=== PATIENT | male | born 1955 | race African-American/Black ===

== ENCOUNTER 2023-05-07 12:16 | Inpatient (IN) ==
[2023-05-07 15:25] LABS: ALANINE AMINOTRANSFERASE 26 Units/L (12-78); ALBUMIN 1.8 g/dL (3.4-5.0); ALKALINE PHOSPHATASE 140 Units/L (46-116); AMYLASE 52 Units/L (25-115); ASPARTATE AMINO TRANSFERASE 59 Units/L (15-37); BLOOD UREA NITROGEN 3 mg/dL (7-18); CALCIUM 6.8 mg/dL (8.5-10.1); CARBON DIOXIDE 26.4 mmol/L (21-32); CHLORIDE 107 mmol/L (98-107); COR CA(FOR HYPOALB) 8.6 mg/dL (8.5-10.1); COR NA(FOR HYPERGLY) 143 mmol/L (136-145); CREATINE KINASE 46 Units/L (39-308); CREATININE 0.65 mg/dL (0.70-1.30); GLUCOSE 136 mg/dL (65-99); LIPASE 12 Units/L (73-393); SODIUM 142 mmol/L (136-145); TOTAL PROTEIN 4.9 g/dL (6.4-8.2); eGFR NON BLACK RACES > 60 (>60)
[2023-05-07 15:26] LABS: BASOPHILS % (AUTO) 0.4 % (0.2-1.0); EOSINOPHILS % (AUTO) 0.4 % (0.9-2.9); HEMOGLOBIN 9.7 g/dL (13.5-18.0); LYMPHOCYTES # (AUTO) 2.4 X10^3/uL (1.3-2.9); MEAN CORPUSCULAR HEMOGLOBIN 32.3 pg (27.0-34.0); MEAN CORPUSCULAR HGB CONC 34.6 g/dL (33.0-35.0); MEAN CORPUSCULAR VOLUME 93.4 fL (80.0-100.0); MEAN PLATELET VOLUME 9.8 fL (7.4-11.0); MONOCYTES # (AUTO) 0.4 x10^3/uL (0.3-0.8); MONOCYTES % (AUTO) 6.7 % (0.0-13.0); NEUTROPHILS # (AUTO) 3.8 x10^3/uL (2.2-4.8); NEUTROPHILS % (AUTO) 56.5 % (42.0-75.0); PLATELET COUNT 121 X10^3/uL (150.0-450.0); RED CELL DISTRIBUTION WIDTH 12.2 % (11.6-16.5); WHITE BLOOD COUNT 6.7 X10^3/uL (3.6-10.0)
[2023-05-07 15:33] LABS: POTASSIUM 2.8 mmol/L (3.5-5.1)
[2023-05-07] MEDS: PEPCID 20 MG VIAL 20 MG in NS 50 ML IV 50 ML IV SCH ×2 (15:40→20:23)
[2023-05-07] MEDS: PROTONIX INJ 40 MG VIAL IVP SCH ×2 (15:40→20:24)
[2023-05-07] MEDS ORDERED: CONSULT PHARMACY - POTASSIUM & MAGNESIUM XX SCH (17:00)
[2023-05-07] MEDS: K-DUR TAB 20 MEQ PO SCH ×3 (18:19→21:44)
[2023-05-07] MEDS: MAG-OX TAB PO SCH ×3 (18:20→21:45)
[2023-05-07 18:26] LABS: BILIRUBIN,URINE NEGATIVE (NEGATIVE); BLOOD/HEMOGLOBIN,URINE NEGATIVE (NEGATIVE); GLUCOSE, URINE NEGATIVE (NEGATIVE); KETONES,URINE NEGATIVE (NEGATIVE); LEUKOCYTE ESTERASE ,URINE NEGATIVE (NEGATIVE); NITRITES,URINE NEGATIVE (NEGATIVE); PROTEIN,URINE NEGATIVE (NEGATIVE); UROBILINOGEN,URINE NORMAL (NORMAL)
[2023-05-07 18:28] LABS: APPEARANCE,URINE CLEAR (CLEAR); COLOR,URINE DARK YELLOW (YELLOW)
[2023-05-07] MEDS: MORPHINE SULFATE INJ 2 MG INJ IVP PRN (20:27)
--- NOTE | 2023-05-07 23:17 | RAD ---
HISTORYSOBSTUDYCHEST, 1 VIEWCOMPARISONOctober 2020TECHNIQUEChest radiographic imaging, AP portable projection, 1 imageFINDINGSNo cardiomegaly.2 cm nodule in the left upper lobe.No focal infiltrate.No pleural effusion.No pneumothorax.No acute osseous abnormality.IMPRESSION2 cm nodule in the left upper lobe. Recommend a chest CT for further characterization.Electronically signed by: Jorge A Avalos (May 07, 2023 23:15:49)
[2023-05-08] MEDS: MORPHINE SULFATE INJ 2 MG INJ IVP PRN ×3 (03:16→19:41)
[2023-05-08 06:27] LABS: BASOPHILS % (AUTO) 0.3 % (0.2-1.0); EOSINOPHILS % (AUTO) 0.5 % (0.9-2.9); HEMATOCRIT 26.7 % (42.0-54.0); HEMOGLOBIN 9.1 g/dL (13.5-18.0); LYMPHOCYTES # (AUTO) 2.4 X10^3/uL (1.3-2.9); LYMPHOCYTES % (AUTO) 31.6 % (21.0-51.0); MEAN CORPUSCULAR HGB CONC 34.1 g/dL (33.0-35.0); MEAN CORPUSCULAR VOLUME 93.9 fL (80.0-100.0); MEAN PLATELET VOLUME 10.1 fL (7.4-11.0); MONOCYTES # (AUTO) 0.6 x10^3/uL (0.3-0.8); MONOCYTES % (AUTO) 8.3 % (0.0-13.0); NEUTROPHILS # (AUTO) 4.5 x10^3/uL (2.2-4.8); NEUTROPHILS % (AUTO) 59.3 % (42.0-75.0); PLATELET COUNT 120 X10^3/uL (150.0-450.0); RED BLOOD COUNT 2.85 X10^6/uL (4.7-6.0); RED CELL DISTRIBUTION WIDTH 12.4 % (11.6-16.5); WHITE BLOOD COUNT 7.6 X10^3/uL (3.6-10.0)
[2023-05-08 06:28] LABS: ALANINE AMINOTRANSFERASE 25 Units/L (12-78); ALBUMIN 1.5 g/dL (3.4-5.0); ALKALINE PHOSPHATASE 127 Units/L (46-116); ASPARTATE AMINO TRANSFERASE 70 Units/L (15-37); BLOOD UREA NITROGEN 3 mg/dL (7-18); CALCIUM 6.8 mg/dL (8.5-10.1); CARBON DIOXIDE 25.6 mmol/L (21-32); CHLORIDE 108 mmol/L (98-107); COR CA(FOR HYPOALB) 8.8 mg/dL (8.5-10.1); COR NA(FOR HYPERGLY) 142 mmol/L (136-145); CREATININE 0.66 mg/dL (0.70-1.30); GLUCOSE 124 mg/dL (65-99); MAGNESIUM 1.4 mg/dL (2.0-2.9); POTASSIUM 3.7 mmol/L (3.5-5.1); SODIUM 141 mmol/L (136-145); TOTAL PROTEIN 4.4 g/dL (6.4-8.2); eGFR NON BLACK RACES > 60 (>60)
[2023-05-08] MEDS ORDERED: CONSULT PHARMACY - POTASSIUM & MAGNESIUM XX SCH (07:00)
[2023-05-08] MEDS: PEPCID 20 MG VIAL 20 MG in NS 50 ML IV 50 ML IV SCH ×2 (08:48→21:17)
[2023-05-08] MEDS: PROTONIX INJ 40 MG VIAL IVP SCH ×2 (08:48→21:16)
[2023-05-08] MEDS: ALBUMIN HUMAN 25%- 100 ML 100 ML IV SCH (09:00)
[2023-05-08 09:24] VITALS: BMI 15.8
[2023-05-08] MEDS ORDERED: NS 250 ML IV 250 ML IV ONE (09:29)
[2023-05-08] MEDS ORDERED: K-DUR TAB 20 MEQ PO SCH (10:00)
[2023-05-08] MEDS: MAG-OX TAB PO SCH ×4 (10:58→13:35)
--- NOTE | 2023-05-08 11:55 | DR.H&P ---
H&P - History & Physical for Day of: H&P Date: 05/07/23 - Chief Complaint Chief Complaint: ABDOMINAL PAIN, BLOATING, NAUSEA AND VOMITING, WEIGHT LOSS, SOB. - History of Present Illness History of Present Illness: PRESENTED TO THE OFFICE ON 05/07 WITH COMPLAINTS OF INTERMITTENT ABDOMINAL PAIN, BLOATING, OCCASIONAL NAUSEA AND VOMITING, WEIGHT LOSS, SOB. HE ADMITS TO LOSING ABOUT 30-40 POUNDS IN THE PAST SEVERAL MONTHS. PATIENT REPORTS THAT PAIN IS WORSE AFTER EATING AND THAT HE OFTEN FEELS FULL QUICKLY. SYMPTOMS HAVE BEEN ONGOING FOR SEVERAL MONTHS. HE DESCRIBES ABDOMINAL PAIN DIFFUSE AND CRAMPING. HE RATED PAIN A 5/10 ON A RRIVAL. PAIN IS GENERALLY WORSE IN THE EPIGASTRIUM. HE ADMITS TO NORMAL BOWEL HABITS. HIS PMH INCLUDES GERD, ESOPHAGEAL STRICTURE, CHRONIC PANCREATITIS, OSTEOARTHRITIS, BPH, HYPERLIPIDEMIA, HIP REPLACEMENT, SARAH IN LEFT LEG. HE IS A DAILY DRINKER OF WINE. HE HAS BEEN SEEN BY , GENERAL SURGEON, SEVERAL TIMES SINCE DECEMBER 2022. HE HAD AN EGD AND COLONOSCOPY ON 01/18/23. THE UPPER ENDOSCOPY SHOWED STRICTURE OF THE LOWER ESOPHAGUS SECONDARY TO CHRONIC REFLUX ESOPHAGITIS. MODERATE DUODENITIS. THE COLONOSCOPY SHOWED MILD TO MODERATE DIVERTICULOSIS. OTHERWISE NORMAL EXAM ALL THE WAY TO THE CECUM. HIS ESOPHAGUS WAS STRETCHED AT THAT TIME. BIPOSIES WERE NEGATIVE FOR INTESTINAL METAPLASIA, DYSPLASIA, MALIGNANCY, H.PYLORI, OR PARASITES. HE WAS STARTED ON PROTONIX AND CARAFATE AND DID HAVE SOME IMPROVEMENT IN SYMPTOMS UNTIL AROUND A MONTH AGO. AN ABDOMEN/PELVIS CT WITH CONTRAST WAS OBTAINED ON 04/25 AND REVEALED: Circumferential thickening of the rectum and distal colon is suspicious for acut e proctocolitis. No discrete lesions identified; however, colonoscopy can be performed further evaluation as clinically warranted. Chronic pancreatitis with mild common bile duct and moderate pancreatic ductal dilatation, findings likely represents scarring and/or stricturing of the distal common bile and pancreatic ducts. Recommend. correlation cholestatic function test is recommended. OUTPATIENT CEA LEVEL WAS CHECKED AND WAS NOTED TO BE 11.8. DECISION WAS MADE TO ADMIT PATIENT TO THE HOSPITAL FOR FURTHER EVALUATION AND TREATMENT OF ABDOMINAL PAIN, CHRONIC PANCREATITIS, WEIGHT LOSS, SHORTNESS OF BREATH, DEHYDRATION, ELEVATED CEA LEVEL. ON ADMISSION, HIS VITALS WERE: 97.8-89-20-97%-119/80. LABS WERE OBTAINED. WBC 6.7, RBC 3.00, HGB 9.7, HCT 28.0, SODIUM 142, POTASSIUM 2.8, CHLORIDE 107, CARBON DIOXIDE 26.4, BUN 3, CREATININE 0.65, GLUCOSE 136, CALCIUM 6.8, MAGNESIUM 1.4, AST 59, ALT 26, ALK PHOS 140, CREATINE KINASE 46, TROPONIN 10.0, TOTAL PROTEIN 4.9, ALBUMIN 1.8, AMYLASE 52, LIPASE 12. A URINALYSIS WAS OBTAINED AND WAS UNREMARKABLE, HOWEVER, A CULTURE WAS SET UP. A CHEST XRAY WAS OBTAINED AND REVEALED A 2CM NODULE IN THE LEFT UPPER LOBE. A CT OF THE CHEST WITH CONTRAST WAS RECOMMENDED. HE WAS STARTED ON PERIPHERAL TPN, ALBUMIN 25% IV DAILY, PROTONIX 40MG IV BID, FAMOTIDINE 20MG IV Q12H, ZOFRAN 4MG IV Q4H PRN. WE WILL REPLEAT HIS POTASSIUM AND MAGNESIUM. WE WILL RESUME HIS HOME MEDICATIONS OF TAMSULOSIN, FOLIC ACID, PERCOCET, AND ATORVASTATIN. WE WILL OBTAIN A GALLBLADDER ULTRASOUND AND A CHEST CT WITH CONTRAST. WE WILL GO AHEAD AND CONSULT WITH , GENERAL SURGEON. OTHERWISE, WE WILL FOLLOW UP WITH AM LABS AND CONTINUE TO MONITOR. TIME SPENT ON CLINICAL ASSESSMENT, REVIEWING - Past Medical History Past Medical History: Anemia, Dyslipidemia, GERD Additional Medical History: BPH, CHRONIC PANCREATITIS, ESOPHAGEAL STRICTURE, ALCOHOL DEPENDENCE - Past Surgical History Surgical History: Ortho Surgery Additional Surgical History: HIP REPLACEMENT, SARAH IN LEFT LEG - Family History Family Medical History: Diabetes Mellitus, Hypertension - Social History Does patient currently use any type of tobacco product: Yes Have you used tobacco products in the last 12 months: Yes Type of Tobacco Use: Cigarettes How many years tobacco product used: 40 Alcohol Use: DAILY Drug Use: None - Review of Systems Constitutional: Weakness, Other (WEIGHT LOSS ) Eyes: No Symptoms Reported ENT: No Symptoms Reported Respiratory: Shortness of Breath. denies: Cough Cardiovascular: No Symptoms Reported Gastrointestinal: See HPI, Nausea, Vomiting, Abdominal Pain. denies: Diarrhea, Constipation, Melena Genitourinary: No Symptoms Reported Musculoskeletal: No Symptoms Reported Skin: No Symptoms Reported Neurological: Weakness - Physical Exam Vital Signs: Vital Signs Temperature 98.2 F Temperature 97.9 F Pulse Rate [Bilateral Radial] 74 Pulse Rate [Bilateral Radial] 67 Respiratory Rate 20 Respiratory Rate 18 Respiratory Rate 20 Blood Pressure [Left Arm] 142/90 Blood Pressure [Left Arm] 151/80 O2 Sat by Pulse Oximetry 96 O2 Sat by Pulse Oximetry 100 Oriented: Normal Eyes: Normal Ear: Normal Nose: Normal Throat: Normal Respiratory: Diminished Throughout Cardiovascular: Normal : Normal Auscultation: Bowel Sounds: Normal Palpation: Normal Tenderness: Diffuse, Epigastric, Mild Skin: Decreased Turgur Musculoskeletal: Normal Psychiatric: Normal Mood Description: Calm Affect: Normal Speech Pattern: Clear - Assessment/Plan (1) Chronic pancreatitis Qualifiers: Pancreatitis type: alcohol induced Qualified Code(s): K86.0 - Alcohol- induced chronic pancreatitis Status: Acute Plan: ADMIT, CONSULT GENERAL SURGERY, OBTAIN GALLBLADDER US, START PERIPHERAL TPN, ALBUMIN 25% IV DAILY, PROTONIX 40MG IV BID, FAMOTIDINE 20MG IV Q12H, ZOFRAN 4MG IV Q4H PRN, MORPHINE 2MG IV Q4H PRN. RESUME HOME MEDS (2) Abdominal pain Qualifiers: Abdominal location: generalized Qualified Code(s): R10.84 - Generalized abdominal pain Status: Acute (3) Dehydration Status: Acute Plan: REPLEAT ELECTROLYTES (4) Protein calorie malnutrition Qualifiers: Protein-calorie malnutrition severity: moderate Qualified Code(s): E44.0 - Moderate protein-calorie malnutrition Status: Acute Plan: PERIPHERAL TPN, DIETARY CONSULT (5) Hypoalbuminemia Status: Acute Plan: ALBUMIN 25% IV DAILY (6) Elevated CEA Status: Acute (7) Weight loss Status: Acute (8) Lung nodule seen on imaging study Status: Acute Plan: OBTAIN CHEST CT WITH CONTRAST (9) Gastroesophageal reflux disease Qualifiers: Esophagitis presence: with esophagitis Status: Chronic Plan: CONTINUE PEPCID AND PROTONIX (10) BPH (benign prostatic hyperplasia) Qualifiers: Lower urinary tract symptom presence: symptoms absent Qualified Code(s): N40.0 - Benign prostatic hyperplasia without lower urinary tract symptoms Status: Chronic Plan: CONTINUE TAMSULOSIN (11) Hyperlipidemia Qualifiers: Hyperlipidemia type: mixed hyperlipidemia Qualified Code(s): E78.2 - Mixed hyperlipidemia Status: Chronic Plan: CONTINUE ATORVASTATIN - Allergies Allergies/Adverse Reactions: Allergies Allergy/AdvReac Type Severity Reaction Status Date / Time Penicillins Allergy Verified 01/24/23 11:17 - Medications Home Medications: Home Medications Medication Instructions Recorded Confirmed atorvastatin 40 mg tablet 40 mg PO QDAY 01/08/23 05/07/23 folic acid 1 mg tablet 1 mg PO QDAY 01/08/23 05/07/23 oxycodone-acetaminophen 7.5 mg-325 1 tab PO QID PRN 01/08/23 05/07/23 mg tablet tamsulosin 0.4 mg capsule 0.4 mg PO QHS 01/08/23 05/07/23 tamsulosin 0.4 mg capsule 0.4 mg PO QHS 05/07/23 05/07/23 Previous Rx's Medication Instructions Recorded pantoprazole 40 mg tablet,delayed 40 mg PO BID #60 tabs 04/11/23 release (Protonix)
[2023-05-08] MEDS ORDERED: PHARMACY CONSULT - TPN XX SCH (12:00)
[2023-05-08] MEDS ORDERED: OMNIPAQUE 350 mg/mL 100 mL BTL 100 ML ONE (12:14)
[2023-05-08] MEDS ORDERED: CLINIMIX IV SCH ×3 (13:00)
[2023-05-08] MEDS ORDERED: MVI IV SCH ×3 (13:00)
[2023-05-08] MEDS ORDERED: TPN ELECTROLYTES IV SCH ×3 (13:00)
[2023-05-08] MEDS: LIPITOR TAB 40 MG PO SCH (13:33)
[2023-05-08] MEDS: FOLIC ACID TAB 1 MG PO SCH (13:34)
--- NOTE | 2023-05-08 15:27 | CT ---
HISTORYLUNG NODULE, R/O MALIGNANCYSTUDYCHEST WITH CONCOMPARISONTECHNIQUEMultiple axial images of the chest were obtained from the thoracic inlet to the upper abdomen after the administration of IV contrast. Dose reduction techniques including Automated Exposure Control (AEC) and adjustment of mA and kV were utilized.FINDINGSThe left ventricle is dilated relative to the right. The main pulmonary artery measures 2.6 cm in diameter. There is no pulmonary embolus. There is ectasia of the ascending aorta up to 3.4 cm in diameter. There is no dissection. There is no pathologic adenopathy. The airways are clear. There is mild upper lobe emphysema. There is some minimal scarring in the right upper. There is a spiculated mass with some cavitation left which measures 2.3 cm by 2.1 cm. Although infection is possible the appearance is quite worrisome for malignancy. There is a trace pleural effusion. There is diffuse fatty infiltration of the liver. There are diffuse calcifications in the pancreas. There is a nonspecific lesion in the right 9th rib, probably benign.IMPRESSION1. Left upper lobe lesion suggestive of malignancy.2. Mild upper lobe emphysema.3. Trace left effusion.4. Fatty liver.5. Chronic pancreatitis.Electronically signed by: Benji James (May 08, 2023 15:26:01)
--- NOTE | 2023-05-08 16:04 | US ---
HISTORYABD PAINSTUDYGALL BLADDERCOMPARISONNone availableTECHNIQUEMultiple espitia scale, duplex and color flow Doppler images of the right upper quadrant were obtained.FINDINGSThe imaged liver appears diffusely increased in echogenicity, most compatible with steatosis. No focal hepatic lesions are visualized. Main portal vein is patent.The nondistended gallbladder is unremarkable without cholelithiasis, wall thickening/edema or pericholecystic fluid. Common bile duct is normal in caliber, measuring 1 mm.The right kidney measures 9.2 cm in length and appears normal in echogenicity without visualized focal mass or hydronephrosis.The pancreas was not well visualized due to overlying bowel gas.IMPRESSIONNonvisualization of the pancreas due to overlying bowel gas.Hepatic steatosis.Remainder of the exam is unremarkable, as visualized.Electronically signed by: MARGOTH DUTTON (May 08, 2023 16:02:49)
[2023-05-08 16:13] VITALS: O2SAT 100
[2023-05-08] MEDS: FLOMAX PO SCH (21:16)
[2023-05-08] MEDS: PERCOCET TAB 5/325 MG PO PRN (21:20)
[2023-05-09] MEDS: MORPHINE SULFATE INJ 2 MG INJ IVP PRN ×3 (00:18→17:16)
[2023-05-09 06:10] LABS: BASOPHILS % (AUTO) 0.4 % (0.2-1.0); EOSINOPHILS # (AUTO) 0.1 x10^3/uL (0.0-0.2); EOSINOPHILS % (AUTO) 1.1 % (0.9-2.9); HEMATOCRIT 25.6 % (42.0-54.0); HEMOGLOBIN 8.8 g/dL (13.5-18.0); LYMPHOCYTES # (AUTO) 2.5 X10^3/uL (1.3-2.9); LYMPHOCYTES % (AUTO) 34.9 % (21.0-51.0); MEAN CORPUSCULAR HGB CONC 34.2 g/dL (33.0-35.0); MEAN CORPUSCULAR VOLUME 93.7 fL (80.0-100.0); MEAN PLATELET VOLUME 10.4 fL (7.4-11.0); MONOCYTES # (AUTO) 0.6 x10^3/uL (0.3-0.8); NEUTROPHILS # (AUTO) 3.9 x10^3/uL (2.2-4.8); NEUTROPHILS % (AUTO) 54.6 % (42.0-75.0); PLATELET COUNT 105 X10^3/uL (150.0-450.0); RED BLOOD COUNT 2.74 X10^6/uL (4.7-6.0); RED CELL DISTRIBUTION WIDTH 12.4 % (11.6-16.5); WHITE BLOOD COUNT 7.1 X10^3/uL (3.6-10.0)
[2023-05-09 06:26] LABS: ALANINE AMINOTRANSFERASE 20 Units/L (12-78); ALKALINE PHOSPHATASE 116 Units/L (46-116); ASPARTATE AMINO TRANSFERASE 49 Units/L (15-37); BLOOD UREA NITROGEN 3 mg/dL (7-18); CARBON DIOXIDE 28.8 mmol/L (21-32); CHLORIDE 104 mmol/L (98-107); COR CA(FOR HYPOALB) 8.6 mg/dL (8.5-10.1); COR NA(FOR HYPERGLY) 140 mmol/L (136-145); CREATININE 0.61 mg/dL (0.70-1.30); GLUCOSE 182 mg/dL (65-99); MAGNESIUM 1.5 mg/dL (2.0-2.9); POTASSIUM 3.6 mmol/L (3.5-5.1); SODIUM 138 mmol/L (136-145); TOTAL PROTEIN 4.6 g/dL (6.4-8.2); eGFR NON BLACK RACES > 60 (>60)
[2023-05-09] MEDS ORDERED: CONSULT PHARMACY - POTASSIUM & MAGNESIUM XX SCH ×2 (07:00→08:00)
[2023-05-09] MEDS: PEPCID 20 MG VIAL 20 MG in NS 50 ML IV 50 ML IV SCH ×2 (08:22→21:07)
[2023-05-09] MEDS: ALBUMIN HUMAN 25%- 100 ML 100 ML IV SCH (08:22)
[2023-05-09] MEDS: MAG-OX TAB PO SCH ×2 (08:23→09:34)
[2023-05-09] MEDS: LIPITOR TAB 40 MG PO SCH (08:23)
[2023-05-09] MEDS: FOLIC ACID TAB 1 MG PO SCH (08:23)
[2023-05-09] MEDS: PROTONIX INJ 40 MG VIAL IVP SCH ×2 (08:23→21:07)
[2023-05-09] MEDS: PERCOCET TAB 5/325 MG PO PRN ×2 (08:24→21:08)
[2023-05-09] MEDS ORDERED: K-DUR TAB 20 MEQ PO SCH (09:00)
--- NOTE | 2023-05-09 13:36 | PCM.PROG ---
Progress Note - Progress Note for Day of Date of Exam: 05/09/23 - Subjective Subjective: IS CURRENTLY OBSERVATION STATUS FOR TREATMENT OF FAILURE TO THRIVE, CHRONIC PANCREATITIS, ABDOMINAL PAIN, DEHYDRATION, HYPOALBUMINEMIA, HYPOMAGNESEMIA, ELEVATED CEA, WEIGHT LOSS, LEFT LUNG LESION. HE HAS A PMH OF GERD, ESOPHAGEAL STRICTURE, CHRONIC PANCREATITIS, OSTEOARTHRITIS, BPH, HYPERLIPIDEMIA, HIP REPLACEMENT, SARAH IN LEFT LEG. TODAY, HE IS ALERT AND ORIENTED, LYING IN BED ON MORNING ROUNDS. PATIENT IS VERY THIN. HE COMPLAINS OF PERSISTENT ABDOMINAL PAIN, NAUSEA, WEAKNESS, AND OCCASIONAL SHORTNESS OF BREATH. HE REPORTS ONLY SLIGHT IMPROVEMENT IN SYMPTOMS SINCE ADMISSION. ON EXAMINATION, HEART IS REGULAR IN RATE AND RHYTHM. BILATERAL LUNGS ARE NOTED WITH DIMINISHED LUNG SOUNDS THROUGHOUT. ABDOMEN IS FLAT, SOFT, AND NON-TENDER WITH NORMAL BOWEL SOUNDS NOTED IN ALL QUADRANTS. WEAKNESS NOTED TO LOWER EXTREMITIES. HIS VITALS THIS MORNING ARE: 97.0-72-18-100%-154/78. LABS WERE OBTAINED. WBC 7.1, RBC 2.74, HGB 8.8, HCT 25.6, PLT COUNT 105, SODIUM 138, POTASSIUM 3.6, CHLORIDE 104, BUN 3, CREATININE 0.61, GLUCOSE 182, CALCIUM 7.0, MAGNESIUM 1.5, TOTAL BILI 1.10, AST 49, ALT 20, ALK PHOS 116, TOTAL PROTEIN 4.6, ALBUMIN 2.0. URINE CULTURE IS PENDING. WE OBTAINED A CHEST CT WITH CONTRAST YESTERDAY. IT REVEALED: 1. Left upper lobe lesion suggestive of malignancy. 2. Mild upper lobe emphysema. 3. Trace left effusion. 4. Fatty liver. 5. Chronic pancreatitis. A GALLBLADDER US WAS ALSO OBTAINED YESTERDAY AND REVEALED: Nonvisualization of the pancreas due to overlying bowel gas. Hepatic steatosis. Remainder of the exam is unremarkable, as visualized. SAW HIM YESTERDAY AND RECOMMENDS T OCONTINUE WITH CURRENT PLAN OF CARE. HE IS CURRENTLY RECEIVING PERIPHERAL TPN, ALBUMIN 25% IV DAILY, PROTONIX 40MG IV BID, FAMOTIDINE 20MG IV Q12H, ZOFRAN 4MG IV Q4H PRN. WE WILL REPLEAT HIS POTASSIUM AND MAGNESIUM. WE WILL RESUME HIS HOME MEDICATIONS OF TAMSULOSIN, FOLIC ACID, PERCOCET, AND ATORVASTATIN. WE WILL CHANGE HIM TO INPATIENT STATUS TODAY AND CONTINUE WITH CURRENT PLAN OF CARE. WE DISCUSSED THE RESULTS OF HIS CHEST CT WITH HIM AND INSTRUCTED HIM THAT HE WILL NEED AN ONCOLOGY REFERRAL FOLLOWING DISCHARGE. HE VERBALIZED UNDERSTATNDING. WE WILL FOLLOW UP WITH AM LABS AND CONTINUE TO MONITOR. TIME SPENT ON CLINICAL ASSESSMENT, REVIEWING LABS AND IMAGING, DECISION MAKING, AND DOCUMENTATION GREATER THAN 45 MINUTES. - Past Medical Family Social History Past Med/Fam/Surg Hx: No changes since H&P Allergies: Allergies Penicillins Allergy (Verified 01/24/23 11:17) - Review of Systems ROS: No change since H&P - Vital Signs and I&O's Vital Signs: Vital Signs Temperature 97.6 F Temperature 97.0 F Pulse Rate [Bilateral Radial] 55 Pulse Rate [Bilateral Radial] 72 Respiratory Rate 18 Respiratory Rate 22 Respiratory Rate 22 Respiratory Rate 18 Blood Pressure [Right Arm] 140/82 Blood Pressure [Right Arm] 154/78 O2 Sat by Pulse Oximetry 100 O2 Sat by Pulse Oximetry 100 Intake and Output: Intake & Output 05/07/23 05/08/23 05/09/23 05/10/23 11:59 11:59 11:59 11:59 Intake Total 310 / 310 2837 / 2837 Output Total 1820 / 1820 Balance 310 / 310 1017 / 1017 - Physical Exam Oriented: Normal Eyes: Normal Ear: Normal Nose: Normal Throat: Normal Respiratory: Diminished Cardiovascular: Normal : Normal Auscultation: Bowel Sounds: Normal Palpation: Normal Tenderness: Normal Skin: Decreased Turgur Musculoskeletal: Normal Psychiatric: Normal Mood Description: Calm Affect: Normal Speech Pattern: Clear, Appropriate - Laboratory and Diagnostics Result Diagrams: 05/09/23 05:22 05/09/23 05:22 Labs: 05/07/23 18:14 Urine,Clean Catch Urine Culture - Final Laboratory WBC 7.1 X10^3/uL (3.6-10.0) 05/09/23 05:22 RBC 2.74 X10^6/uL (4.7-6.0) L 05/09/23 05:22 Hgb 8.8 g/dL (13.5-18.0) L 05/09/23 05:22 Hct 25.6 % (42.0-54.0) L 05/09/23 05:22 MCV 93.7 fL (80.0-100.0) 05/09/23 05:22 MCH 32.0 pg (27.0-34.0) 05/09/23 05:22 MCHC 34.2 g/dL (33.0-35.0) 05/09/23 05:22 RDW 12.4 % (11.6-16.5) 05/09/23 05:22 Plt Count 105 X10^3/uL (150.0-450.0) L 05/09/23 05:22 MPV 10.4 fL (7.4-11.0) 05/09/23 05:22 Neut % (Auto) 54.6 % (42.0-75.0) 05/09/23 05:22 Lymph % (Auto) 34.9 % (21.0-51.0) 05/09/23 05:22 [place] % (Auto) 9.0 % (0.0-13.0) 05/09/23 05:22 Eos % (Auto) 1.1 % (0.9-2.9) 05/09/23 05:22 Baso % (Auto) 0.4 % (0.2-1.0) 05/09/23 05:22 Neut # (Auto) 3.9 x10^3/uL (2.2-4.8) 05/09/23 05:22 Lymph # (Auto) 2.5 X10^3/uL (1.3-2.9) 05/09/23 05:22 [place] # (Auto) 0.6 x10^3/uL (0.3-0.8) 05/09/23 05:22 Eos # (Auto) 0.1 x10^3/uL (0.0-0.2) 05/09/23 05:22 Baso # (Auto) 0.0 X10^3/uL (0.0-0.1) 05/09/23 05:22 Absolute Nucleated RBC 0.2 /100WBC 05/09/23 05:22 Sodium 138 mmol/L (136-145) 05/09/23 05:22 Corrected Sodium 140 mmol/L (136-145) 05/09/23 05:22 Potassium 3.6 mmol/L (3.5-5.1) 05/09/23 05:22 Chloride 104 mmol/L (98-107) 05/09/23 05:22 Carbon Dioxide 28.8 mmol/L (21-32) 05/09/23 05:22 BUN 3 mg/dL (7-18) L 05/09/23 05:22 Creatinine 0.61 mg/dL (0.70-1.30) L 05/09/23 05:22 Est GFR (MDRD) Af Amer > 60 (>60) 05/09/23 05:22 Est GFR (MDRD) Non-Af > 60 (>60) 05/09/23 05:22 Glucose 182 mg/dL (65-99) H 05/09/23 05:22 Calcium 7.0 mg/dL (8.5-10.1) L 05/09/23 05:22 Corrected Calcium 8.6 mg/dL (8.5-10.1) 05/09/23 05:22 Magnesium 1.5 mg/dL (2.0-2.9) L 05/09/23 05:22 Total Bilirubin 1.10 mg/dL (0.2-1.0) H 05/09/23 05:22 AST 49 Units/L (15-37) H 05/09/23 05:22 ALT 20 Units/L (12-78) 05/09/23 05:22 Alkaline Phosphatase 116 Units/L (46-116) 05/09/23 05:22 Creatine Kinase 46 Units/L (39-308) 05/07/23 14:55 Troponin I High Sens 10.0 ng/L (4.0-60.0) 05/07/23 14:55 Total Protein 4.6 g/dL (6.4-8.2) L 05/09/23 05:22 Albumin 2.0 g/dL (3.4-5.0) L 05/09/23 05:22 Globulin 2.6 g/dL (2.5-4.5) 05/09/23 05:22 Albumin/Globulin Ratio 0.8 Ratio (1.1-2.1) L 05/09/23 05:22 Amylase 52 Units/L (25-115) 05/07/23 14:55 Lipase 12 Units/L (73-393) L 05/07/23 14:55 Specimen Type Clean catch urine 05/07/23 18:14 Urine Color Dark yellow (YELLOW) 05/07/23 18:14 Urine Appearance Clear (CLEAR) 05/07/23 18:14 Urine pH 6.0 (5.0 - 8.0) 05/07/23 18:14 Ur Specific [place] 1.015 (1.000-1.030) 05/07/23 18:14 Urine Protein Negative (NEGATIVE) 05/07/23 18:14 Urine Glucose (UA) Negative (NEGATIVE) 05/07/23 18:14 Urine Ketones Negative (NEGATIVE) 05/07/23 18:14 Urine Blood Negative (NEGATIVE) 05/07/23 18:14 Urine Nitrite Negative (NEGATIVE) 05/07/23 18:14 Urine Bilirubin Negative (NEGATIVE) 05/07/23 18:14 Urine Urobilinogen Normal (NORMAL) 05/07/23 18:14 Ur Leukocyte Esterase Negative (NEGATIVE) 05/07/23 18:14 - Plan (1) Hypoalbuminemia Status: Acute Plan: PERIPHERAL TPN, ALBUMIN 25% IV DAILY, PROTONIX 40MG IV BID, FAMOTIDINE 20MG IV Q12H, ZOFRAN 4MG IV Q4H PRN, MORPHINE 2MG IV Q4H PRN. RESUME HOME MEDS (2) Hypomagnesemia Status: Acute (3) Failure to thrive Status: Acute Qualifiers: Failure to thrive age range: in adult Qualified Code(s): R62.7 - Adult failure to thrive (4) Elevated CEA Status: Acute (5) Weight loss Status: Acute (6) Chronic pancreatitis Status: Acute Qualifiers: Pancreatitis type: alcohol induced Qualified Code(s): K86.0 - Alcohol- induced chronic pancreatitis (7) Dehydration Status: Acute Plan: REPLEAT ELECTROLYTES (8) Lung nodule seen on imaging study Status: Acute (9) Gastroesophageal reflux disease Status: Chronic Qualifiers: Esophagitis presence: with esophagitis Plan: CONTINUE PEPCID AND PROTONIX (10) BPH (benign prostatic hyperplasia) Status: Chronic Qualifiers: Lower urinary tract symptom presence: symptoms absent Qualified Code(s): N40.0 - Benign prostatic hyperplasia without lower urinary tract symptoms Plan: CONTINUE TAMSULOSIN (11) Hyperlipidemia Status: Chronic Qualifiers: Hyperlipidemia type: mixed hyperlipidemia Qualified Code(s): E78.2 - Mixed hyperlipidemia Plan: CONTINUE ATORVASTATIN
[2023-05-09] MEDS: FLAGYL IV PREMIX 500 MG BAG 500 MG/100 ML BAG IV SCH (21:06)
[2023-05-09] MEDS: CIPRO IV 400 MG PREMIX* 400 MG/200 ML IV.SOLN. IV SCH (21:06)
[2023-05-09] MEDS: FLOMAX PO SCH (21:07)
[2023-05-10] MEDS: FLAGYL IV PREMIX 500 MG BAG 500 MG/100 ML BAG IV SCH ×4 (02:05→20:20)
[2023-05-10] MEDS: PERCOCET TAB 5/325 MG PO PRN ×2 (02:10→10:05)
[2023-05-10 06:08] LABS: BASOPHILS % (AUTO) 0.4 % (0.2-1.0); EOSINOPHILS # (AUTO) 0.1 x10^3/uL (0.0-0.2); HEMATOCRIT 27.6 % (42.0-54.0); HEMOGLOBIN 9.3 g/dL (13.5-18.0); LYMPHOCYTES # (AUTO) 2.5 X10^3/uL (1.3-2.9); LYMPHOCYTES % (AUTO) 35.3 % (21.0-51.0); MEAN CORPUSCULAR HEMOGLOBIN 31.8 pg (27.0-34.0); MEAN CORPUSCULAR HGB CONC 33.8 g/dL (33.0-35.0); MEAN CORPUSCULAR VOLUME 94.1 fL (80.0-100.0); MEAN PLATELET VOLUME 10.4 fL (7.4-11.0); MONOCYTES # (AUTO) 0.6 x10^3/uL (0.3-0.8); NEUTROPHILS % (AUTO) 55.3 % (42.0-75.0); PLATELET COUNT 110 X10^3/uL (150.0-450.0); RED BLOOD COUNT 2.93 X10^6/uL (4.7-6.0); RED CELL DISTRIBUTION WIDTH 12.6 % (11.6-16.5); WHITE BLOOD COUNT 7.2 X10^3/uL (3.6-10.0)
[2023-05-10 06:45] LABS: ALANINE AMINOTRANSFERASE 20 Units/L (12-78); ALBUMIN 2.5 g/dL (3.4-5.0); ALKALINE PHOSPHATASE 121 Units/L (46-116); ASPARTATE AMINO TRANSFERASE 42 Units/L (15-37); BLOOD UREA NITROGEN 3 mg/dL (7-18); CALCIUM 7.4 mg/dL (8.5-10.1); CARBON DIOXIDE 26.4 mmol/L (21-32); CHLORIDE 104 mmol/L (98-107); COR CA(FOR HYPOALB) 8.6 mg/dL (8.5-10.1); CREATININE 0.52 mg/dL (0.70-1.30); GLUCOSE 92 mg/dL (65-99); POTASSIUM 3.9 mmol/L (3.5-5.1); SODIUM 139 mmol/L (136-145); TOTAL PROTEIN 5.2 g/dL (6.4-8.2); eGFR NON BLACK RACES > 60 (>60)
[2023-05-10] MEDS ORDERED: CONSULT PHARMACY - POTASSIUM & MAGNESIUM XX SCH (08:00)
[2023-05-10] MEDS: CIPRO IV 400 MG PREMIX* 400 MG/200 ML IV.SOLN. IV SCH ×2 (08:57→20:20)
[2023-05-10] MEDS: PROTONIX INJ 40 MG VIAL IVP SCH ×2 (08:57→20:21)
[2023-05-10] MEDS: LIPITOR TAB 40 MG PO SCH (08:57)
[2023-05-10] MEDS: FOLIC ACID TAB 1 MG PO SCH (08:57)
[2023-05-10] MEDS: MAG-OX TAB PO SCH ×2 (08:58→11:02)
[2023-05-10] MEDS: TPN ELECTROLYTES IV SCH ×5 (09:01)
[2023-05-10] MEDS: CLINIMIX IV SCH ×5 (09:01)
[2023-05-10] MEDS: MVI IV SCH ×5 (09:01)
[2023-05-10] MEDS: [UNRECOGNIZED DRUG - OTHER] IV SCH ×5 (09:01)
[2023-05-10] MEDS: PEPCID 20 MG VIAL 20 MG in NS 50 ML IV 50 ML IV SCH ×2 (11:00→20:03)
[2023-05-10] MEDS: ALBUMIN HUMAN 25%- 100 ML 100 ML IV SCH (12:00)
--- NOTE | 2023-05-10 12:19 | PCM.PROG ---
Progress Note - Progress Note for Day of Date of Exam: 05/10/23 - Subjective Subjective: IS CURRENTLY INPATIENT STATUS FOR TREATMENT OF ACUTE PROCTOCOLITIS, FAILURE TO THRIVE, CHRONIC PANCREATITIS, ABDOMINAL PAIN, DEHYDRATION, HYPOALBUMINEMIA, HYPOMAGNESEMIA, ELEVATED CEA, WEIGHT LOSS, LEFT LUNG LESION. HE HAS A PMH OF GERD, ESOPHAGEAL STRICTURE, CHRONIC PANCREATITIS, OSTEOARTHRITIS, BPH, HYPERLIPIDEMIA, HIP REPLACEMENT, SARAH IN LEFT LEG. TODAY, HE IS ALERT AND ORIENTED, LYING IN BED ON MORNING ROUNDS. PATIENT IS VERY THIN. HE COMPLAINS OF OCCASIONAL ABDOMINAL CRAMPING, NAUSEA, WEAKNESS, AND OCCASIONAL SHORTNESS OF BREATH. HE DOES REPORT SLIGHT IMPROVEMENT IN SYMPTOMS SINCE ADMISSION. ON EXAMINATION, HEART IS REGULAR IN RATE AND RHYTHM. BILATERAL LUNGS ARE NOTED WITH DIMINISHED LUNG SOUNDS THROUGHOUT. ABDOMEN IS FLAT, SOFT, AND NON-TENDER WITH NORMAL BOWEL SOUNDS NOTED IN ALL QUADRANTS. WEAKNESS NOTED TO LOWER EXTREMITIES. HIS VITALS THIS MORNING ARE: 97.9-350-71-100%-124/82. LABS WERE OBTAINED. WBC 7.2, RBC 2.93, HGB 9.3, HCT 27.6, PLT COUNT 110, SODIUM 139, POTASSIUM 3.9, CHLORIDE 104, BUN 3, CREATININE 0.52, GLUCOSE 92, CALCIUM 7.4, MAGNEISUM 1.5, AST 42, ALT 20, ALK PHOS 121, TOTAL PROTEIN 5.2, ALBUMIN 2.5. URINE CULTURE IS PENDING. CONSULTED WITH HIM AND RECOMMENDS TO CONTINUE WITH CURRENT PLAN OF CARE. HE IS CURRENTLY RECEIVING PERIPHERAL TPN, CIPRO 400MG IV Q12H, FLAGYL 500MG IV Q6H, ALBUMIN 25% IV DAILY, PROTONIX 40MG IV BID, FAMOTIDINE 20MG IV Q12H, ZOFRAN 4MG IV Q4H PRN. WE WILL REPLEAT HIS POTASSIUM AND MAGNESIUM. WE WILL RESUME HIS HOME MEDICATIONS OF TAMSULOSIN, FOLIC ACID, PERCOCET, AND ATORVASTATIN. WE WILL CONTINUE WITH CURRENT PLAN OF CARE TODAY. WE WILL FOLLOW UP WITH AM LABS AND CONTINUE TO MONITOR. TIME SPENT O N CLINICAL ASSESSMENT, REVIEWING LABS AND IMAGING, DECISION MAKING, AND DOCUMENTATION GREATER THAN 45 MINUTES. - Past Medical Family Social History Past Med/Fam/Surg Hx: No changes since H&P Allergies: Allergies Penicillins Allergy (Verified 01/24/23 11:17) - Review of Systems ROS: No change since H&P - Vital Signs and I&O's Vital Signs: Vital Signs Temperature 97.4 F Pulse Rate [Bilateral Radial] 106 Respiratory Rate 18 Respiratory Rate 18 Respiratory Rate 18 Blood Pressure [Right Arm] 124/82 O2 Sat by Pulse Oximetry 100 Intake and Output: Intake & Output 05/08/23 05/09/23 05/10/23 05/11/23 11:59 11:59 11:59 11:59 Intake Total 310 / 310 2837 / 2837 2863 / 2863 Output Total 1820 / 1820 2700 / 2700 Balance 310 / 310 1017 / 1017 163 / 163 - Physical Exam Oriented: Normal Eyes: Normal Ear: Normal Nose: Normal Throat: Normal Respiratory: Diminished Cardiovascular: Normal : Normal Auscultation: Bowel Sounds: Normal Palpation: Normal Tenderness: Normal Skin: Decreased Turgur Musculoskeletal: Normal Psychiatric: Normal Mood Description: Calm Affect: Normal Speech Pattern: Clear, Appropriate - Laboratory and Diagnostics Result Diagrams: 05/10/23 05:45 05/10/23 05:45 Labs: 05/07/23 18:14 Urine,Clean Catch Urine Culture - Final Laboratory WBC 7.2 X10^3/uL (3.6-10.0) 05/10/23 05:45 RBC 2.93 X10^6/uL (4.7-6.0) L 05/10/23 05:45 Hgb 9.3 g/dL (13.5-18.0) L 05/10/23 05:45 Hct 27.6 % (42.0-54.0) L 05/10/23 05:45 MCV 94.1 fL (80.0-100.0) 05/10/23 05:45 MCH 31.8 pg (27.0-34.0) 05/10/23 05:45 MCHC 33.8 g/dL (33.0-35.0) 05/10/23 05:45 RDW 12.6 % (11.6-16.5) 05/10/23 05:45 Plt Count 110 X10^3/uL (150.0-450.0) L 05/10/23 05:45 MPV 10.4 fL (7.4-11.0) 05/10/23 05:45 Neut % (Auto) 55.3 % (42.0-75.0) 05/10/23 05:45 Lymph % (Auto) 35.3 % (21.0-51.0) 05/10/23 05:45 Mcdonald % (Auto) 8.0 % (0.0-13.0) 05/10/23 05:45 Eos % (Auto) 1.0 % (0.9-2.9) 05/10/23 05:45 Baso % (Auto) 0.4 % (0.2-1.0) 05/10/23 05:45 Neut # (Auto) 4.0 x10^3/uL (2.2-4.8) 05/10/23 05:45 Lymph # (Auto) 2.5 X10^3/uL (1.3-2.9) 05/10/23 05:45 Mcdonald # (Auto) 0.6 x10^3/uL (0.3-0.8) 05/10/23 05:45 Eos # (Auto) 0.1 x10^3/uL (0.0-0.2) 05/10/23 05:45 Baso # (Auto) 0.0 X10^3/uL (0.0-0.1) 05/10/23 05:45 Absolute Nucleated RBC 0.1 /100WBC 05/10/23 05:45 Sodium 139 mmol/L (136-145) 05/10/23 05:45 Corrected Sodium TNP 05/10/23 05:45 Potassium 3.9 mmol/L (3.5-5.1) 05/10/23 05:45 Chloride 104 mmol/L (98-107) 05/10/23 05:45 Carbon Dioxide 26.4 mmol/L (21-32) 05/10/23 05:45 BUN 3 mg/dL (7-18) L 05/10/23 05:45 Creatinine 0.52 mg/dL (0.70-1.30) L 05/10/23 05:45 Est GFR (MDRD) Af Amer > 60 (>60) 05/10/23 05:45 Est GFR (MDRD) Non-Af > 60 (>60) 05/10/23 05:45 Glucose 92 mg/dL (65-99) 05/10/23 05:45 Calcium 7.4 mg/dL (8.5-10.1) L 05/10/23 05:45 Corrected Calcium 8.6 mg/dL (8.5-10.1) 05/10/23 05:45 Magnesium 1.5 mg/dL (2.0-2.9) L 05/10/23 05:45 Total Bilirubin 0.80 mg/dL (0.2-1.0) 05/10/23 05:45 GGT 388 U/L (8-61) H 05/08/23 05:33 AST 42 Units/L (15-37) H 05/10/23 05:45 ALT 20 Units/L (12-78) 05/10/23 05:45 Alkaline Phosphatase 121 Units/L (46-116) H 05/10/23 05:45 Creatine Kinase 46 Units/L (39-308) 05/07/23 14:55 Troponin I High Sens 10.0 ng/L (4.0-60.0) 05/07/23 14:55 Total Protein 5.2 g/dL (6.4-8.2) L 05/10/23 05:45 Albumin 2.5 g/dL (3.4-5.0) L 05/10/23 05:45 Globulin 2.7 g/dL (2.5-4.5) 05/10/23 05:45 Albumin/Globulin Ratio 0.9 Ratio (1.1-2.1) L 05/10/23 05:45 Amylase 52 Units/L (25-115) 05/07/23 14:55 Lipase 12 Units/L (73-393) L 05/07/23 14:55 Specimen Type Clean catch urine 05/07/23 18:14 Urine Color Dark yellow (YELLOW) 05/07/23 18:14 Urine Appearance Clear (CLEAR) 05/07/23 18:14 Urine pH 6.0 (5.0 - 8.0) 05/07/23 18:14 Ur Specific [place] 1.015 (1.000-1.030) 05/07/23 18:14 Urine Protein Negative (NEGATIVE) 05/07/23 18:14 Urine Glucose (UA) Negative (NEGATIVE) 05/07/23 18:14 Urine Ketones Negative (NEGATIVE) 05/07/23 18:14 Urine Blood Negative (NEGATIVE) 05/07/23 18:14 Urine Nitrite Negative (NEGATIVE) 05/07/23 18:14 Urine Bilirubin Negative (NEGATIVE) 05/07/23 18:14 Urine Urobilinogen Normal (NORMAL) 05/07/23 18:14 Ur Leukocyte Esterase Negative (NEGATIVE) 05/07/23 18:14 - Plan (1) Hypoalbuminemia Status: Acute Plan: PERIPHERAL TPN, CIPRO 400MG IV Q12H, FLAGYL 500MG IV Q6H, ALBUMIN 25% IV DAILY, PROTONIX 40MG IV BID, FAMOTIDINE 20MG IV Q12H, ZOFRAN 4MG IV Q4H PRN. RESUME HOME MEDS (2) Hypomagnesemia Status: Acute (3) Failure to thrive Status: Acute Qualifiers: Failure to thrive age range: in adult Qualified Code(s): R62.7 - Adult failure to thrive (4) Elevated CEA Status: Acute (5) Weight loss Status: Acute (6) Chronic pancreatitis Status: Acute Qualifiers: Pancreatitis type: alcohol induced Qualified Code(s): K86.0 - Alcohol- induced chronic pancreatitis (7) Dehydration Status: Acute Plan: REPLEAT ELECTROLYTES (8) Lung nodule seen on imaging study Status: Acute (9) Gastroesophageal reflux disease Status: Chronic Qualifiers: Esophagitis presence: with esophagitis Plan: CONTINUE PEPCID AND PROTONIX (10) BPH (benign prostatic hyperplasia) Status: Chronic Qualifiers: Lower urinary tract symptom presence: symptoms absent Qualified Code(s): N40.0 - Benign prostatic hyperplasia without lower urinary tract symptoms Plan: CONTINUE TAMSULOSIN (11) Hyperlipidemia Status: Chronic Qualifiers: Hyperlipidemia type: mixed hyperlipidemia Qualified Code(s): E78.2 - Mixed hyperlipidemia Plan: CONTINUE ATORVASTATIN
[2023-05-10] MEDS: MORPHINE SULFATE INJ 2 MG INJ IVP PRN ×2 (13:44→20:22)
[2023-05-10] MEDS: ZOFRAN INJ 4 MG VIAL IVP PRN ×2 (13:44→20:22)
[2023-05-10] MEDS ORDERED: NS 250 ML IV 250 ML IV ONE (19:08)
[2023-05-10] MEDS: FLOMAX PO SCH (20:21)
[2023-05-10] MEDS: NS 250 ML IV 250 ML IV PRN (20:21)
[2023-05-11] MEDS: FLAGYL IV PREMIX 500 MG BAG 500 MG/100 ML BAG IV SCH ×4 (02:15→20:02)
[2023-05-11] MEDS: PERCOCET TAB 5/325 MG PO PRN ×4 (03:10→20:02)
[2023-05-11] MEDS ORDERED: DRUG FILTER EXTENSION SET ONE (06:14)
[2023-05-11] MEDS: [UNRECOGNIZED DRUG - OTHER] IV SCH ×10 (06:27→18:25)
[2023-05-11] MEDS: CLINIMIX IV SCH ×10 (06:27→18:25)
[2023-05-11] MEDS: MVI IV SCH ×10 (06:27→18:25)
[2023-05-11] MEDS: TPN ELECTROLYTES IV SCH ×10 (06:27→18:25)
[2023-05-11 06:48] LABS: BASOPHILS % (AUTO) 0.2 % (0.2-1.0); EOSINOPHILS # (AUTO) 0.1 x10^3/uL (0.0-0.2); EOSINOPHILS % (AUTO) 0.8 % (0.9-2.9); HEMOGLOBIN 8.6 g/dL (13.5-18.0); LYMPHOCYTES # (AUTO) 1.8 X10^3/uL (1.3-2.9); LYMPHOCYTES % (AUTO) 24.1 % (21.0-51.0); MEAN CORPUSCULAR HEMOGLOBIN 32.2 pg (27.0-34.0); MEAN CORPUSCULAR HGB CONC 34.5 g/dL (33.0-35.0); MEAN CORPUSCULAR VOLUME 93.4 fL (80.0-100.0); MEAN PLATELET VOLUME 10.6 fL (7.4-11.0); MONOCYTES # (AUTO) 0.7 x10^3/uL (0.3-0.8); MONOCYTES % (AUTO) 9.7 % (0.0-13.0); NEUTROPHILS # (AUTO) 4.9 x10^3/uL (2.2-4.8); NEUTROPHILS % (AUTO) 65.2 % (42.0-75.0); PLATELET COUNT 97 X10^3/uL (150.0-450.0); RED BLOOD COUNT 2.68 X10^6/uL (4.7-6.0); RED CELL DISTRIBUTION WIDTH 12.5 % (11.6-16.5); WHITE BLOOD COUNT 7.6 X10^3/uL (3.6-10.0)
[2023-05-11 07:04] LABS: ALANINE AMINOTRANSFERASE 15 Units/L (12-78); ALBUMIN 2.7 g/dL (3.4-5.0); ALKALINE PHOSPHATASE 105 Units/L (46-116); ASPARTATE AMINO TRANSFERASE 27 Units/L (15-37); BLOOD UREA NITROGEN 4 mg/dL (7-18); CALCIUM 7.5 mg/dL (8.5-10.1); CARBON DIOXIDE 25.2 mmol/L (21-32); CHLORIDE 104 mmol/L (98-107); COR CA(FOR HYPOALB) 8.5 mg/dL (8.5-10.1); COR NA(FOR HYPERGLY) 137 mmol/L (136-145); CREATININE 0.63 mg/dL (0.70-1.30); GLUCOSE 157 mg/dL (65-99); MAGNESIUM 1.7 mg/dL (2.0-2.9); SODIUM 136 mmol/L (136-145); TOTAL PROTEIN 5.1 g/dL (6.4-8.2); eGFR NON BLACK RACES > 60 (>60)
[2023-05-11] MEDS: PROTONIX INJ 40 MG VIAL IVP SCH ×2 (08:49→20:01)
[2023-05-11] MEDS: PEPCID 20 MG VIAL 20 MG in NS 50 ML IV 50 ML IV SCH ×2 (08:49→20:01)
[2023-05-11] MEDS: FOLIC ACID TAB 1 MG PO SCH (08:49)
[2023-05-11] MEDS: LIPITOR TAB 40 MG PO SCH (08:49)
[2023-05-11] MEDS: ALBUMIN HUMAN 25%- 100 ML 100 ML IV SCH (10:32)
--- NOTE | 2023-05-11 11:37 | PCM.PROG ---
Progress Note Progress Note for Day of Date of Exam: 05/11/23 Subjective Subjective: Patient seen at bedside, no acute events overnight. He reports feeling better. Denies N/V or diarrhea. He states his stools are starting to form, last BM this morning. He states abdominal pain is better. He is currently admitted for acute proctocolitis, dehydration and chronic pancreatitis. He reports tolerating PO intake. Patient has also been seen by Dr Vargas. Labs/imaging reviewed - Gallbladder US: hepatic steatosis - Chest CT: JOSÉ MIGUEL lesion concerning for malignancy - Labs: Hgb 8.6 Plt 97 Mg 1.7 - CEA: 10.4 [id number]-[id number] 52 Plan: continue current treatment with IV Cipro/Flagyl. Continue hydration and TPN. Advance diet as tolerated. Replace electrolytes as needed. Monitor Hgb. Co ntinue pain control. Discussed with patient about CT findings and tumor markers. Patient will need to follow up with Oncology outpatient for further work up. Monitor AM labs/imaging. Past Medical Family Social History Past Med/Fam/Surg Hx: No changes since H&P Allergies: Allergies Penicillins Allergy (Verified 01/24/23 11:17) Review of Systems ROS: No change since H&P Vital Signs and I&O's Vital Signs: Vital Signs Temperature 98.1 F Temperature 98.3 F Pulse Rate [Bilateral Radial] 86 Pulse Rate [Bilateral Radial] 79 Respiratory Rate 18 Respiratory Rate 20 Respiratory Rate 18 Respiratory Rate 18 Blood Pressure [Right Arm] 131/74 Blood Pressure [Right Arm] 114/71 O2 Sat by Pulse Oximetry 100 O2 Sat by Pulse Oximetry 100 Intake and Output: Intake & Output 05/08/23 05/09/23 05/10/23 05/11/23 23:59 23:59 23:59 23:59 Intake Total 1640 / 1640 3107 / 3107 3736 / 3736 1164 / 1164 Output Total 1150 / 1150 2170 / 2170 3675 / 3675 700 / 700 Balance 490 / 490 937 / 937 61 / 61 464 / 464 Physical Exam Oriented: Normal Eyes: Normal Ear: Normal Nose: Normal Throat: Normal Respiratory: Diminished Cardiovascular: Normal Auscultation: Bowel Sounds: Normal Tenderness: Diffuse, Periumbilical and Mild Skin: Decreased Turgur Musculoskeletal: Normal Psychiatric: Normal Mood Description: Calm Affect: Normal Speech Pattern: Clear and Appropriate Laboratory and Diagnostics 05/11/23 06:03 05/11/23 06:03 Labs: 05/07/23 18:14 Urine,Clean Catch Urine Culture - Final Laboratory WBC 7.6 X10^3/uL (3.6-10.0) 05/11/23 06:03 RBC 2.68 X10^6/uL (4.7-6.0) L 05/11/23 06:03 Hgb 8.6 g/dL (13.5-18.0) L 05/11/23 06:03 Hct 25.0 % (42.0-54.0) L 05/11/23 06:03 MCV 93.4 fL (80.0-100.0) 05/11/23 06:03 MCH 32.2 pg (27.0-34.0) 05/11/23 06:03 MCHC 34.5 g/dL (33.0-35.0) 05/11/23 06:03 RDW 12.5 % (11.6-16.5) 05/11/23 06:03 Plt Count 97 X10^3/uL (150.0-450.0) L 05/11/23 06:03 MPV 10.6 fL (7.4-11.0) 05/11/23 06:03 Neut % (Auto) 65.2 % (42.0-75.0) 05/11/23 06:03 Lymph % (Auto) 24.1 % (21.0-51.0) 05/11/23 06:03 Price % (Auto) 9.7 % (0.0-13.0) 05/11/23 06:03 Eos % (Auto) 0.8 % (0.9-2.9) L 05/11/23 06:03 Baso % (Auto) 0.2 % (0.2-1.0) 05/11/23 06:03 Neut # (Auto) 4.9 x10^3/uL (2.2-4.8) H 05/11/23 06:03 Lymph # (Auto) 1.8 X10^3/uL (1.3-2.9) 05/11/23 06:03 Price # (Auto) 0.7 x10^3/uL (0.3-0.8) 05/11/23 06:03 Eos # (Auto) 0.1 x10^3/uL (0.0-0.2) 05/11/23 06:03 Baso # (Auto) 0.0 X10^3/uL (0.0-0.1) 05/11/23 06:03 Absolute Nucleated RBC 0.0 /100WBC 05/11/23 06:03 Sodium 136 mmol/L (136-145) 05/11/23 06:03 Corrected Sodium 137 mmol/L (136-145) 05/11/23 06:03 Potassium 4.0 mmol/L (3.5-5.1) 05/11/23 06:03 Chloride 104 mmol/L (98-107) 05/11/23 06:03 Carbon Dioxide 25.2 mmol/L (21-32) 05/11/23 06:03 BUN 4 mg/dL (7-18) L 05/11/23 06:03 Creatinine 0.63 mg/dL (0.70-1.30) L 05/11/23 06:03 Est GFR (MDRD) Af Amer > 60 (>60) 05/11/23 06:03 Est GFR (MDRD) Non-Af > 60 (>60) 05/11/23 06:03 Glucose 157 mg/dL (65-99) H 05/11/23 06:03 Calcium 7.5 mg/dL (8.5-10.1) L 05/11/23 06:03 Corrected Calcium 8.5 mg/dL (8.5-10.1) 05/11/23 06:03 Magnesium 1.7 mg/dL (2.0-2.9) L 05/11/23 06:03 Total Bilirubin 0.70 mg/dL (0.2-1.0) 05/11/23 06:03 GGT 388 U/L (8-61) H 05/08/23 05:33 AST 27 Units/L (15-37) 05/11/23 06:03 ALT 15 Units/L (12-78) 05/11/23 06:03 Alkaline Phosphatase 105 Units/L (46-116) 05/11/23 06:03 Creatine Kinase 46 Units/L (39-308) 05/07/23 14:55 Troponin I High Sens 10.0 ng/L (4.0-60.0) 05/07/23 14:55 Total Protein 5.1 g/dL (6.4-8.2) L 05/11/23 06:03 Albumin 2.7 g/dL (3.4-5.0) L 05/11/23 06:03 Globulin 2.4 g/dL (2.5-4.5) L 05/11/23 06:03 Albumin/Globulin Ratio 1.1 Ratio (1.1-2.1) 05/11/23 06:03 Amylase 52 Units/L (25-115) 05/07/23 14:55 Lipase 12 Units/L (73-393) L 05/07/23 14:55 Carcinoembryonic Ag 10.4 ng/mL (<=3.8) H 05/08/23 13:23 CA 19-9 Antigen 52 U/mL (<=35) H 05/08/23 13:23 Specimen Type Clean catch urine 05/07/23 18:14 Urine Color Dark yellow (YELLOW) 05/07/23 18:14 Urine Appearance Clear (CLEAR) 05/07/23 18:14 Urine pH 6.0 (5.0 - 8.0) 05/07/23 18:14 Ur Specific [place] 1.015 (1.000-1.030) 05/07/23 18:14 Urine Protein Negative (NEGATIVE) 05/07/23 18:14 Urine Glucose (UA) Negative (NEGATIVE) 05/07/23 18:14 Urine Ketones Negative (NEGATIVE) 05/07/23 18:14 Urine Blood Negative (NEGATIVE) 05/07/23 18:14 Urine Nitrite Negative (NEGATIVE) 05/07/23 18:14 Urine Bilirubin Negative (NEGATIVE) 05/07/23 18:14 Urine Urobilinogen Normal (NORMAL) 05/07/23 18:14 Ur Leukocyte Esterase Negative (NEGATIVE) 05/07/23 18:14 Plan (1) Proctocolitis: Status: Acute (2) Chronic pancreatitis: Status: Acute Qualifiers: Pancreatitis type: alcohol induced Qualified Code(s): K86.0 - Alcohol-induced chronic pancreatitis (3) Hypoalbuminemia: Status: Acute (4) Hypomagnesemia: Status: Acute (5) Failure to thrive: Status: Acute Qualifiers: Failure to thrive age range: in adult Qualified Code(s): R62.7 - Adult failure to thrive (6) Elevated CEA: Status: Acute (7) Weight loss: Status: Acute (8) Dehydration: Status: Acute Plan: REPLEAT ELECTROLYTES (9) Lung nodule seen on imaging study: Status: Acute (10) Gastroesophageal reflux disease: Status: Chronic Qualifiers: Esophagitis presence: esophagitis presence not specified Qualified Code(s): K21.9 - Gastro-esophageal reflux disease without esophagitis (11) BPH (benign prostatic hyperplasia): Status: Chronic Qualifiers: Lower urinary tract symptom presence: symptoms absent Qualified Code (s): N40.0 - Benign prostatic hyperplasia without lower urinary tract symptoms (12) Hyperlipidemia: Status: Chronic Qualifiers: Hyperlipidemia type: mixed hyperlipidemia Qualified Code(s): E78.2 - Mixed hyperlipidemia
[2023-05-11] MEDS: CIPRO IV 400 MG PREMIX* 400 MG/200 ML IV.SOLN. IV SCH ×2 (11:50→20:02)
[2023-05-11] MEDS: FLOMAX PO SCH (20:02)
[2023-05-12] MEDS: PERCOCET TAB 5/325 MG PO PRN ×4 (02:22→21:28)
[2023-05-12] MEDS: FLAGYL IV PREMIX 500 MG BAG 500 MG/100 ML BAG IV SCH ×4 (02:22→20:16)
[2023-05-12 06:14] LABS: BASOPHILS % (AUTO) 0.4 % (0.2-1.0); EOSINOPHILS # (AUTO) 0.1 x10^3/uL (0.0-0.2); EOSINOPHILS % (AUTO) 1.4 % (0.9-2.9); HEMATOCRIT 23.5 % (42.0-54.0); HEMOGLOBIN 8.1 g/dL (13.5-18.0); LYMPHOCYTES # (AUTO) 2.5 X10^3/uL (1.3-2.9); LYMPHOCYTES % (AUTO) 35.6 % (21.0-51.0); MEAN CORPUSCULAR HEMOGLOBIN 32.2 pg (27.0-34.0); MEAN CORPUSCULAR HGB CONC 34.3 g/dL (33.0-35.0); MEAN CORPUSCULAR VOLUME 93.8 fL (80.0-100.0); MEAN PLATELET VOLUME 10.6 fL (7.4-11.0); MONOCYTES # (AUTO) 0.7 x10^3/uL (0.3-0.8); MONOCYTES % (AUTO) 10.3 % (0.0-13.0); NEUTROPHILS # (AUTO) 3.7 x10^3/uL (2.2-4.8); NEUTROPHILS % (AUTO) 52.3 % (42.0-75.0); PLATELET COUNT 99 X10^3/uL (150.0-450.0); RED BLOOD COUNT 2.51 X10^6/uL (4.7-6.0); RED CELL DISTRIBUTION WIDTH 12.5 % (11.6-16.5)
[2023-05-12 06:40] LABS: ALANINE AMINOTRANSFERASE 11 Units/L (12-78); ALBUMIN 2.7 g/dL (3.4-5.0); ALKALINE PHOSPHATASE 94 Units/L (46-116); ASPARTATE AMINO TRANSFERASE 21 Units/L (15-37); BLOOD UREA NITROGEN 4 mg/dL (7-18); CALCIUM 7.4 mg/dL (8.5-10.1); CARBON DIOXIDE 24.2 mmol/L (21-32); CHLORIDE 105 mmol/L (98-107); COR CA(FOR HYPOALB) 8.4 mg/dL (8.5-10.1); COR NA(FOR HYPERGLY) 136 mmol/L (136-145); CREATININE 0.57 mg/dL (0.70-1.30); GLUCOSE 134 mg/dL (65-99); MAGNESIUM 1.8 mg/dL (2.0-2.9); POTASSIUM 3.7 mmol/L (3.5-5.1); SODIUM 135 mmol/L (136-145); eGFR NON BLACK RACES > 60 (>60)
[2023-05-12] MEDS: PEPCID 20 MG VIAL 20 MG in NS 50 ML IV 50 ML IV SCH ×2 (08:45→20:16)
[2023-05-12] MEDS: FOLIC ACID TAB 1 MG PO SCH (08:48)
[2023-05-12] MEDS: LIPITOR TAB 40 MG PO SCH (08:49)
[2023-05-12] MEDS: PROTONIX INJ 40 MG VIAL IVP SCH ×2 (08:49→20:16)
[2023-05-12] MEDS: CLINIMIX IV SCH ×10 (08:50→15:10)
[2023-05-12] MEDS: [UNRECOGNIZED DRUG - OTHER] IV SCH ×10 (08:50→15:10)
[2023-05-12] MEDS: MVI IV SCH ×10 (08:50→15:10)
[2023-05-12] MEDS: TPN ELECTROLYTES IV SCH ×10 (08:50→15:10)
[2023-05-12] MEDS: CIPRO IV 400 MG PREMIX* 400 MG/200 ML IV.SOLN. IV SCH ×2 (11:14→20:16)
--- NOTE | 2023-05-12 11:57 | PCM.PROG ---
Progress Note Progress Note for Day of Date of Exam: 05/12/23 Subjective Subjective: Patient seen at bedside, no acute events overnight. He reports feeling better. Denies N/V or diarrhea. His abdominal pain is better. He had a BM this morning, denies any bleeding. He is currently admitted for acute proctocolitis, dehydration and chronic pancreatitis. He reports tolerating PO intake. Labs/imaging reviewed - Gallbladder US: hepatic steatosis - Chest CT: JOSÉ MIGUEL lesion concerning for malignancy - Labs: Hgb 8.1 Plt 99 Mg 1.8 - CEA: 10.4 CA-19-9 52 - Urine Cx (-) Plan: continue current treatment with IV Cipro/Flagyl. Continue hydration and TPN. Monitor H/H, transfuse < 8. Order anemia panel. Advance diet as tolerated. Replace electrolytes as needed. Continue pain control. Discussed with patient about CT findings and tumor markers. Patient will need to follow up with Oncology outpatient for further work up. Monitor AM labs/imaging. Past Medical Family Social History Past Med/Fam/Surg Hx: No changes since H&P Allergies: Allergies Penicillins Allergy (Verified 01/24/23 11:17) Review of Systems ROS: No change since H&P Vital Signs and I&O's Vital Signs: Vital Signs Temperature 97.9 F Temperature 98.1 F Pulse Rate [Bilateral Radial] 86 Pulse Rate [Bilateral Radial] 71 Respiratory Rate 20 Respiratory Rate 18 Respiratory Rate 18 Blood Pressure [Right Arm] 118/73 Blood Pressure [Right Arm] 121/80 O2 Sat by Pulse Oximetry 100 O2 Sat by Pulse Oximetry 100 Intake and Output: Intake & Output 05/09/23 05/10/23 05/11/23 05/12/23 23:59 23:59 23:59 23:59 Intake Total 3107 / 3107 3736 / 3736 3766 / 3766 984 / 984 Output Total 2170 / 2170 3675 / 3675 2650 / 2650 900 / 900 Balance 937 / 937 61 / 61 1116 / 1116 84 / 84 Physical Exam Oriented: Normal Eyes: Normal Ear: Normal Nose: Normal Throat: Normal Respiratory: Diminished Cardiovascular: Normal Auscultation: Bowel Sounds: Normal Tenderness: Diffuse, Periumbilical and Mild Skin: Decreased Turgur Musculoskeletal: Normal Psychiatric: Normal Mood Description: Calm Affect: Normal Speech Pattern: Clear and Appropriate Laboratory and Diagnostics 05/12/23 05:18 05/12/23 05:18 Labs: 05/07/23 18:14 Urine,Clean Catch Urine Culture - Final Laboratory WBC 7.0 X10^3/uL (3.6-10.0) 05/12/23 05:18 RBC 2.51 X10^6/uL (4.7-6.0) L 05/12/23 05:18 Hgb 8.1 g/dL (13.5-18.0) L 05/12/23 05:18 Hct 23.5 % (42.0-54.0) L 05/12/23 05:18 MCV 93.8 fL (80.0-100.0) 05/12/23 05:18 MCH 32.2 pg (27.0-34.0) 05/12/23 05:18 MCHC 34.3 g/dL (33.0-35.0) 05/12/23 05:18 RDW 12.5 % (11.6-16.5) 05/12/23 05:18 Plt Count 99 X10^3/uL (150.0-450.0) L 05/12/23 05:18 MPV 10.6 fL (7.4-11.0) 05/12/23 05:18 Neut % (Auto) 52.3 % (42.0-75.0) 05/12/23 05:18 Lymph % (Auto) 35.6 % (21.0-51.0) 05/12/23 05:18 Andrew % (Auto) 10.3 % (0.0-13.0) 05/12/23 05:18 Eos % (Auto) 1.4 % (0.9-2.9) 05/12/23 05:18 Baso % (Auto) 0.4 % (0.2-1.0) 05/12/23 05:18 Neut # (Auto) 3.7 x10^3/uL (2.2-4.8) 05/12/23 05:18 Lymph # (Auto) 2.5 X10^3/uL (1.3-2.9) 05/12/23 05:18 Andrew # (Auto) 0.7 x10^3/uL (0.3-0.8) 05/12/23 05:18 Eos # (Auto) 0.1 x10^3/uL (0.0-0.2) 05/12/23 05:18 Baso # (Auto) 0.0 X10^3/uL (0.0-0.1) 05/12/23 05:18 Absolute Nucleated RBC 0.0 /100WBC 05/12/23 05:18 Sodium 135 mmol/L (136-145) L 05/12/23 05:18 Corrected Sodium 136 mmol/L (136-145) 05/12/23 05:18 Potassium 3.7 mmol/L (3.5-5.1) 05/12/23 05:18 Chloride 105 mmol/L (98-107) 05/12/23 05:18 Carbon Dioxide 24.2 mmol/L (21-32) 05/12/23 05:18 BUN 4 mg/dL (7-18) L 05/12/23 05:18 Creatinine 0.57 mg/dL (0.70-1.30) L 05/12/23 05:18 Est GFR (MDRD) Af Amer > 60 (>60) 05/12/23 05:18 Est GFR (MDRD) Non-Af > 60 (>60) 05/12/23 05:18 Glucose 134 mg/dL (65-99) H 05/12/23 05:18 Calcium 7.4 mg/dL (8.5-10.1) L 05/12/23 05:18 Corrected Calcium 8.4 mg/dL (8.5-10.1) L 05/12/23 05:18 Magnesium 1.8 mg/dL (2.0-2.9) L 05/12/23 05:18 Total Bilirubin 0.50 mg/dL (0.2-1.0) 05/12/23 05:18 GGT 388 U/L (8-61) H 05/08/23 05:33 AST 21 Units/L (15-37) 05/12/23 05:18 ALT 11 Units/L (12-78) L 05/12/23 05:18 Alkaline Phosphatase 94 Units/L (46-116) 05/12/23 05:18 Creatine Kinase 46 Units/L (39-308) 05/07/23 14:55 Troponin I High Sens 10.0 ng/L (4.0-60.0) 05/07/23 14:55 Total Protein 5.0 g/dL (6.4-8.2) L 05/12/23 05:18 Albumin 2.7 g/dL (3.4-5.0) L 05/12/23 05:18 Globulin 2.3 g/dL (2.5-4.5) L 05/12/23 05:18 Albumin/Globulin Ratio 1.2 Ratio (1.1-2.1) 05/12/23 05:18 Amylase 52 Units/L (25-115) 05/07/23 14:55 Lipase 12 Units/L (73-393) L 05/07/23 14:55 Carcinoembryonic Ag 10.4 ng/mL (<=3.8) H 05/08/23 13:23 CA 19-9 Antigen 52 U/mL (<=35) H 05/08/23 13:23 Specimen Type Clean catch urine 05/07/23 18:14 Urine Color Dark yellow (YELLOW) 05/07/23 18:14 Urine Appearance Clear (CLEAR) 05/07/23 18:14 Urine pH 6.0 (5.0 - 8.0) 05/07/23 18:14 Ur Specific [place] 1.015 (1.000-1.030) 05/07/23 18:14 Urine Protein Negative (NEGATIVE) 05/07/23 18:14 Urine Glucose (UA) Negative (NEGATIVE) 05/07/23 18:14 Urine Ketones Negative (NEGATIVE) 05/07/23 18:14 Urine Blood Negative (NEGATIVE) 05/07/23 18:14 Urine Nitrite Negative (NEGATIVE) 05/07/23 18:14 Urine Bilirubin Negative (NEGATIVE) 05/07/23 18:14 Urine Urobilinogen Normal (NORMAL) 05/07/23 18:14 Ur Leukocyte Esterase Negative (NEGATIVE) 05/07/23 18:14 Plan (1) Anemia: Status: Acute Qualifiers: Anemia type: unspecified type Qualified Code(s): D64.9 - Anemia, unspecified (2) Proctocolitis: Status: Acute (3) Chronic pancreatitis: Status: Acute Qualifiers: Pancreatitis type: alcohol induced Qualified Code(s): K86.0 - Alcohol- induced chronic pancreatitis (4) Hypoalbuminemia: Status: Acute (5) Hypomagnesemia: Status: Acute (6) Failure to thrive: Status: Acute Qualifiers: Failure to thrive age range: in adult Qualified Code(s): R62.7 - Adult failure to thrive (7) Elevated CEA: Status: Acute (8) Weight loss: Status: Acute (9) Dehydration: Status: Acute Plan: REPLEAT ELECTROLYTES (10) Lung nodule seen on imaging study: Status: Acute (11) Gastroesophageal reflux disease: Status: Chronic Qualifiers: Esophagitis presence: esophagitis presence not specified Qualified Code(s): K21.9 - Gastro-esophageal reflux disease without esophagitis Plan: C (12) BPH (benign prostatic hyperplasia): Status: Chronic Qualifiers: Lower urinary tract symptom presence: symptoms absent Qualified Code(s): N40.0 - Benign prostatic hyperplasia without lower urinary tract symptoms Plan: (13) Hyperlipidemia: Status: Chronic Qualifiers: Hyperlipidemia type: mixed hyperlipidemia Qualified Code(s): E78.2 - Mixed hyperlipidemia
[2023-05-12] MEDS: ALBUMIN HUMAN 25%- 100 ML 100 ML IV SCH (12:03)
[2023-05-12] MEDS ORDERED: CONSULT PHARMACY - POTASSIUM & MAGNESIUM XX SCH (16:00)
[2023-05-12] MEDS: MAGNESIUM SULFATE 1 GRAM/100 mL PREMIX 1 G/100 ML BAG IV SCH ×2 (18:00→19:02)
[2023-05-12] MEDS: K-RIDER 10 MEQ/NS 100 ML 10 MEQ/100 ML BAG IV SCH ×2 (20:14→21:33)
[2023-05-12] MEDS: FLOMAX PO SCH (20:17)
[2023-05-12] MEDS ORDERED: NS 250 ML IV 250 ML IV ONE ×2 (20:20→20:52)
[2023-05-12] MEDS: NS 250 ML IV 250 ML IV PRN (21:32)
[2023-05-13] MEDS: PERCOCET TAB 5/325 MG PO PRN ×2 (03:22→09:48)
[2023-05-13] MEDS: FLAGYL IV PREMIX 500 MG BAG 500 MG/100 ML BAG IV SCH ×2 (03:23→09:20)
[2023-05-13 04:45] VITALS: PULSE 70
[2023-05-13 06:12] LABS: BASOPHILS % (AUTO) 0.4 % (0.2-1.0); EOSINOPHILS # (AUTO) 0.1 x10^3/uL (0.0-0.2); EOSINOPHILS % (AUTO) 1.2 % (0.9-2.9); HEMATOCRIT 23.9 % (42.0-54.0); HEMOGLOBIN 8.3 g/dL (13.5-18.0); LYMPHOCYTES # (AUTO) 1.7 X10^3/uL (1.3-2.9); LYMPHOCYTES % (AUTO) 23.8 % (21.0-51.0); MEAN CORPUSCULAR HEMOGLOBIN 32.5 pg (27.0-34.0); MEAN CORPUSCULAR HGB CONC 34.6 g/dL (33.0-35.0); MEAN CORPUSCULAR VOLUME 94.1 fL (80.0-100.0); MEAN PLATELET VOLUME 10.9 fL (7.4-11.0); MONOCYTES # (AUTO) 0.7 x10^3/uL (0.3-0.8); MONOCYTES % (AUTO) 10.1 % (0.0-13.0); NEUTROPHILS # (AUTO) 4.5 x10^3/uL (2.2-4.8); NEUTROPHILS % (AUTO) 64.5 % (42.0-75.0); PLATELET COUNT 91 X10^3/uL (150.0-450.0); RED BLOOD COUNT 2.54 X10^6/uL (4.7-6.0); RED CELL DISTRIBUTION WIDTH 12.7 % (11.6-16.5)
[2023-05-13 06:42] LABS: ALANINE AMINOTRANSFERASE 12 Units/L (12-78); ALBUMIN 3.2 g/dL (3.4-5.0); ALKALINE PHOSPHATASE 91 Units/L (46-116); ASPARTATE AMINO TRANSFERASE 23 Units/L (15-37); BLOOD UREA NITROGEN 5 mg/dL (7-18); CALCIUM 7.6 mg/dL (8.5-10.1); CARBON DIOXIDE 24.9 mmol/L (21-32); CHLORIDE 104 mmol/L (98-107); COR CA(FOR HYPOALB) 8.2 mg/dL (8.5-10.1); COR NA(FOR HYPERGLY) 136 mmol/L (136-145); CREATININE 0.57 mg/dL (0.70-1.30); GLUCOSE 129 mg/dL (65-99); MAGNESIUM 2.1 mg/dL (2.0-2.9); SODIUM 135 mmol/L (136-145); TOTAL PROTEIN 5.4 g/dL (6.4-8.2); eGFR NON BLACK RACES > 60 (>60)
[2023-05-13] MEDS: PEPCID 20 MG VIAL 20 MG in NS 50 ML IV 50 ML IV SCH (08:35)
[2023-05-13] MEDS: LIPITOR TAB 40 MG PO SCH (08:35)
[2023-05-13] MEDS: FOLIC ACID TAB 1 MG PO SCH (08:35)
[2023-05-13] MEDS: PROTONIX INJ 40 MG VIAL IVP SCH (08:36)
[2023-05-13] MEDS: CIPRO IV 400 MG PREMIX* 400 MG/200 ML IV.SOLN. IV SCH (10:36)
[2023-05-13] MEDS: ALBUMIN HUMAN 25%- 100 ML 100 ML IV SCH (11:43)
[2023-05-13 12:15] VITALS: BP 139/71; TEMP 97.9
[2023-05-13 12:51] VITALS: RESP 18
== END 2023-05-13 14:04 | disposition home health service (06) | DRG 440 ==
LOC: MED/SURG
PROVIDERS: ADMIT Internal Medicine; ATTEND Internal Medicine

== ENCOUNTER 2023-05-29 15:26 | Inpatient (IN) ==
[2023-05-29] MEDS ORDERED: NS 1,000 ML IV 1,000 ML IV SCH (21:00)
[2023-05-29] MEDS ORDERED: CONSULT PHARMACY - POTASSIUM & MAGNESIUM XX SCH (21:00)
--- NOTE | 2023-05-29 21:06 | EKG ---
Test Reason : sob Blood Pressure : */* mmHG Vent. Rate : 71 BPM Atrial Rate : * BPM P-R Int : * ms QRS Dur : 74 ms QT Int : 418 ms P-R-T Axes : * 35 43 degrees QTc Int : 454 ms Accelerated Junctional rhythm vs sinus- baseline artifact makes interpretation difficlut Low voltage QRS Poor R-wave progression Cannot rule out Anterior infarct , age undetermined Abnormal ECG No previous ECGs available Confirmed by Toribio Silverman MD ([id number]) on 05/30/2023 7:09:00 AM Referred By: Confirmed By: Toribio Silverman MD
[2023-05-29 21:24] LABS: HEMOGLOBIN 8.9 g/dL (13.5-18.0); MEAN CORPUSCULAR HEMOGLOBIN 31.8 pg (27.0-34.0); RED CELL DISTRIBUTION WIDTH 12.8 % (11.6-16.5)
[2023-05-29 21:28] LABS: BASOPHILS % (AUTO) 0.3 % (0.2-1.0); EOSINOPHILS % (AUTO) 0.5 % (0.9-2.9); HEMATOCRIT 25.9 % (42.0-54.0); LYMPHOCYTES # (AUTO) 2.7 X10^3/uL (1.3-2.9); LYMPHOCYTES % (AUTO) 35.7 % (21.0-51.0); MEAN CORPUSCULAR HGB CONC 34.3 g/dL (33.0-35.0); MEAN CORPUSCULAR VOLUME 92.6 fL (80.0-100.0); MEAN PLATELET VOLUME 8.4 fL (7.4-11.0); MONOCYTES # (AUTO) 0.5 x10^3/uL (0.3-0.8); NEUTROPHILS # (AUTO) 4.3 x10^3/uL (2.2-4.8); NEUTROPHILS % (AUTO) 57.5 % (42.0-75.0); PLATELET COUNT 208 X10^3/uL (150.0-450.0); WHITE BLOOD COUNT 7.5 X10^3/uL (3.6-10.0)
[2023-05-29 21:35] LABS: ALANINE AMINOTRANSFERASE 20 Units/L (12-78); ALBUMIN 2.8 g/dL (3.4-5.0); ALKALINE PHOSPHATASE 102 Units/L (46-116); ASPARTATE AMINO TRANSFERASE 37 Units/L (15-37); BLOOD UREA NITROGEN 2 mg/dL (7-18); CALCIUM 7.4 mg/dL (8.5-10.1); CARBON DIOXIDE 27.6 mmol/L (21-32); CHLORIDE 110 mmol/L (98-107); COR CA(FOR HYPOALB) 8.4 mg/dL (8.5-10.1); CREATINE KINASE 59 Units/L (39-308); CREATININE 0.64 mg/dL (0.70-1.30); GLUCOSE 75 mg/dL (65-99); POTASSIUM 3.3 mmol/L (3.5-5.1); SODIUM 145 mmol/L (136-145); TOTAL PROTEIN 5.9 g/dL (6.4-8.2); eGFR NON BLACK RACES > 60 (>60)
[2023-05-29] MEDS: PERCOCET TAB 5/325 MG PO PRN (22:50)
[2023-05-30] MEDS: K-DUR TAB 20 MEQ PO SCH ×2 (00:20→02:00)
[2023-05-30] MEDS: MAG-OX TAB PO SCH ×4 (04:20→06:53)
[2023-05-30 04:58] LABS: BASOPHILS % (AUTO) 0.4 % (0.2-1.0); EOSINOPHILS % (AUTO) 0.8 % (0.9-2.9); HEMATOCRIT 23.9 % (42.0-54.0); HEMOGLOBIN 8.2 g/dL (13.5-18.0); LYMPHOCYTES # (AUTO) 2.6 X10^3/uL (1.3-2.9); LYMPHOCYTES % (AUTO) 41.9 % (21.0-51.0); MEAN CORPUSCULAR HEMOGLOBIN 31.9 pg (27.0-34.0); MEAN CORPUSCULAR HGB CONC 34.4 g/dL (33.0-35.0); MEAN CORPUSCULAR VOLUME 92.8 fL (80.0-100.0); MEAN PLATELET VOLUME 8.5 fL (7.4-11.0); MONOCYTES # (AUTO) 0.4 x10^3/uL (0.3-0.8); MONOCYTES % (AUTO) 7.1 % (0.0-13.0); NEUTROPHILS % (AUTO) 49.8 % (42.0-75.0); PLATELET COUNT 188 X10^3/uL (150.0-450.0); RED BLOOD COUNT 2.58 X10^6/uL (4.7-6.0); RED CELL DISTRIBUTION WIDTH 13.1 % (11.6-16.5); WHITE BLOOD COUNT 6.1 X10^3/uL (3.6-10.0)
[2023-05-30 05:11] LABS: ALANINE AMINOTRANSFERASE 20 Units/L (12-78); ALBUMIN 2.4 g/dL (3.4-5.0); ALKALINE PHOSPHATASE 91 Units/L (46-116); ASPARTATE AMINO TRANSFERASE 70 Units/L (15-37); BLOOD UREA NITROGEN 1 mg/dL (7-18); CARBON DIOXIDE 23.3 mmol/L (21-32); CHLORIDE 109 mmol/L (98-107); COR CA(FOR HYPOALB) 8.3 mg/dL (8.5-10.1); CREATININE 0.64 mg/dL (0.70-1.30); GLUCOSE 91 mg/dL (65-99); POTASSIUM 3.2 mmol/L (3.5-5.1); SODIUM 143 mmol/L (136-145); TOTAL PROTEIN 5.1 g/dL (6.4-8.2); eGFR NON BLACK RACES > 60 (>60)
[2023-05-30] MEDS ORDERED: CONSULT PHARMACY - POTASSIUM & MAGNESIUM XX SCH (06:00)
[2023-05-30 06:28] LABS: BILIRUBIN,URINE NEGATIVE (NEGATIVE); BLOOD/HEMOGLOBIN,URINE NEGATIVE (NEGATIVE); GLUCOSE, URINE NEGATIVE (NEGATIVE); KETONES,URINE NEGATIVE (NEGATIVE); LEUKOCYTE ESTERASE ,URINE NEGATIVE (NEGATIVE); NITRITES,URINE NEGATIVE (NEGATIVE); PROTEIN,URINE NEGATIVE (NEGATIVE); UROBILINOGEN,URINE NORMAL (NORMAL)
[2023-05-30 06:33] LABS: APPEARANCE,URINE CLEAR (CLEAR); COLOR,URINE YELLOW (YELLOW)
--- NOTE | 2023-05-30 06:45 | RAD ---
HISTORYGeneralized weaknessSTUDYChest AP [id number]/[id number] t size is normal. Yaneli are normal. Lungs are free of acute alveolar infiltrates and areas of consolidation. Once again noted is the patient's known left upper lobe nodule. Primary pulmonary malignant neoplasm must be excluded. PET-CT would be of further diagnostic value. Remainder of the lung sweet are clear. No pleural effusions or pneumothoraces identified. 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 Primary lung neoplasm must be excluded. PET-CT would be of further diagnostic valueLungs otherwise clearElectronically signed by: ANY MULLER (May 30, 2023 06:44:07)
[2023-05-30] MEDS ORDERED: ZOFRAN INJ 4 MG VIAL IVP PRN (08:48)
[2023-05-30] MEDS ORDERED: PHARMACY CONSULT - TPN XX SCH (09:00)
[2023-05-30] MEDS ORDERED: NS + KCL 20 MEQ/L 1,000 ML with MAGNESIUM SULFATE 50% INJ VIAL 1 G IV SCH ×2 (09:00)
[2023-05-30] MEDS ORDERED: K-DUR TAB 20 MEQ PO SCH (09:00)
[2023-05-30] MEDS ORDERED: NovoLIN R (or HumuLIN R) SUBCUT PRN (09:40)
[2023-05-30] MEDS ORDERED: DEXTROSE 10% 1,000 ML IV PRN (09:40)
[2023-05-30 10:04] LABS: MAGNESIUM 1.2 mg/dL (2.0-2.9); PHOSPHORUS 3.1 mg/dL (2.6-4.7)
[2023-05-30] MEDS ORDERED: DRUG FILTER EXTENSION SET ONE (10:37)
[2023-05-30] MEDS: PROTONIX TAB 40 MG PO SCH ×2 (10:42→20:03)
[2023-05-30] MEDS: MEGACE PO SCH (10:42)
[2023-05-30] MEDS: FOLIC ACID TAB 1 MG PO SCH (10:43)
[2023-05-30] MEDS: PEPCID TAB 20 MG PO SCH ×2 (10:43→20:03)
[2023-05-30] MEDS: LIPITOR TAB 40 MG PO SCH (10:43)
[2023-05-30] MEDS: CLINIMIX 4.25%-5% 1,000 ML with MVI INJ (ADULT) 10 ML, POTASSIUM CHLORIDE INJ 40 MEQ VI... IV SCH ×4 (10:44)
[2023-05-30] MEDS: ALBUMIN HUMAN 25%- 100 ML 100 ML IV SCH (10:45)
[2023-05-30] MEDS: NS 1,000 ML IV 1,000 ML IV SCH ×2 (10:53→23:05)
[2023-05-30] MEDS: PERCOCET TAB 5/325 MG PO PRN ×2 (11:02→20:03)
--- NOTE | 2023-05-30 11:05 | DR.UPDATE ---
H&P Update Prescription drug monitoring program results: PDMP reviewed with concerns identified H&P Reviewed: Yes Any changes to H&P?: Yes Changes noted:: WAS RECENTLY HOSPITALIZED FROM 05/07/23 UNTIL 05/13/23 FOR TREATMENT OF CHRONIC PANCREATITIS, DEHYDRATION, HYPOALBUMINEMIA, ELEVATED, CEA, WEIGHT LOSS, A NEWLY DIAGNOSED LUNG NODULE. PRIMARY LUNG NEOPLASM IS HIGHLY SUSPECTED. HE WAS REFERRED TO , ONCOLOGIST, BUT HAS NOT BEEN SCHEDULED FOR A FOLLOW UP WITH HIM YET. HE RETURNED TO THE OFFICE FOR A FOLLOW UP YESTERDAY. HE COMPLAINED OF PERSISTENT WEAKNESS, LOWER EXTREMITY SWELLING, DECREASED ORAL INTAKE, AND LOW BLOOD PRESSURE. DECISION WAS MADE TO READMIT PATIENT OBSERVATION STATUS, FOR FURTHER EVALUATION AND TREATMENT. ON ARRIVAL TO THE HOSPITAL, HIS VITALS WERE: 99.1-76-20-100%-125/77. LABS WERE OBTAINED. WBC 7.5, RBC 2.80, HGB 8.9, HCT 25.9, PLT COUNT 208, SODIUM 145, POTASSIUM 3.3, CHLORIDE 110, BUN 2, CREATININE 0.64, GLUCOSE 75, CALCIUM 7.4, TOTAL BILI 0.90, AST 37, ALT 20, ALK PHOS 102, CREATININE 59, TROPONIN 9.4, BNP 77.7, TOTAL PROTEIN 5.9, ALBUMIN 2.8. URINALYSIS WAS OBTAINED AND WAS UNREMARKABLE. EKG WAS OBTAINED AND REVEALED: SINUS RHYTHM WITH HR 71 BPM. CHEST XRAY WAS OBTAINED AND REVEALED: No change left upper lobe pulmonary nodule. Primary lung neoplasm must be excluded. PET-CT would be of further diagnostic value. Lungs otherwise. Clear. ON ADMISSION, HE WAS STARTED ON NORMAL SALINE AT 40 ML/HR, ALBUMIN 25% IV DAILY, TPN AT 40 ML/HR, OTBS ACHS, HUMULIN R SLIDING SCALE, ZOFRAN 4MG IV Q4H PRN, PERCOCET 5/325MG 2 TABS PO Q6H PRN PAIN. HIS HOME MEDS OF LIPITOR, PEPCID, FOLIC ACID, MEGACE, PROTONIX, AND FLOMAX WERE RESUMED. OTHERWISE, WE PLAN TO FOLLOW UP WITH AM LABS AND CONTINUE TO MONITOR. TIME SPENT ON CLINICAL ASSESSMENT, REVIEWING LABS AND IMAGING, DECISION MAKING, AND DOCUMENTATION GREATER THAN 75 MINUTES. Patient was examined?: Yes
[2023-05-30] MEDS: FLOMAX PO SCH (20:03)
[2023-05-30 20:10] VITALS: BMI 15.5
[2023-05-31] MEDS: PERCOCET TAB 5/325 MG PO PRN ×3 (02:27→20:31)
[2023-05-31 05:09] LABS: BASOPHILS # (AUTO) 0.1 X10^3/uL (0.0-0.1); BASOPHILS % (AUTO) 0.8 % (0.2-1.0); EOSINOPHILS # (AUTO) 0.1 x10^3/uL (0.0-0.2); EOSINOPHILS % (AUTO) 1.2 % (0.9-2.9); HEMATOCRIT 21.7 % (42.0-54.0); HEMOGLOBIN 7.4 g/dL (13.5-18.0); LYMPHOCYTES # (AUTO) 2.5 X10^3/uL (1.3-2.9); LYMPHOCYTES % (AUTO) 36.6 % (21.0-51.0); MEAN CORPUSCULAR HEMOGLOBIN 31.7 pg (27.0-34.0); MEAN CORPUSCULAR HGB CONC 34.2 g/dL (33.0-35.0); MEAN CORPUSCULAR VOLUME 92.6 fL (80.0-100.0); MEAN PLATELET VOLUME 9.4 fL (7.4-11.0); MONOCYTES # (AUTO) 0.4 x10^3/uL (0.3-0.8); MONOCYTES % (AUTO) 6.5 % (0.0-13.0); NEUTROPHILS # (AUTO) 3.7 x10^3/uL (2.2-4.8); NEUTROPHILS % (AUTO) 54.9 % (42.0-75.0); PLATELET COUNT 170 X10^3/uL (150.0-450.0); RED BLOOD COUNT 2.35 X10^6/uL (4.7-6.0); WHITE BLOOD COUNT 6.8 X10^3/uL (3.6-10.0)
[2023-05-31 05:27] LABS: ALANINE AMINOTRANSFERASE 21 Units/L (12-78); ALBUMIN 2.3 g/dL (3.4-5.0); ALKALINE PHOSPHATASE 84 Units/L (46-116); ASPARTATE AMINO TRANSFERASE 51 Units/L (15-37); BLOOD UREA NITROGEN 3 mg/dL (7-18); CALCIUM 6.7 mg/dL (8.5-10.1); CARBON DIOXIDE 20.6 mmol/L (21-32); CHLORIDE 110 mmol/L (98-107); COR CA(FOR HYPOALB) 8.1 mg/dL (8.5-10.1); COR NA(FOR HYPERGLY) 141 mmol/L (136-145); CREATININE 0.56 mg/dL (0.70-1.30); GLUCOSE 131 mg/dL (65-99); POTASSIUM 3.7 mmol/L (3.5-5.1); SODIUM 140 mmol/L (136-145); TOTAL PROTEIN 4.7 g/dL (6.4-8.2); eGFR NON BLACK RACES > 60 (>60)
[2023-05-31 05:29] LABS: PREALBUMIN 10.8 mg/dL (18-35.7)
[2023-05-31] MEDS ORDERED: CONSULT PHARMACY - POTASSIUM & MAGNESIUM XX SCH ×3 (06:00→18:00)
[2023-05-31] MEDS ORDERED: K-DUR TAB 20 MEQ PO SCH (09:00)
--- NOTE | 2023-05-31 09:32 | PCM.PROG ---
Progress Note - Progress Note for Day of Date of Exam: 05/31/23 - Subjective Subjective: NORMAL SALINE AT 40 ML/HR, ALBUMIN 25% IV DAILY, TPN AT 40 ML/HR, OTBS ACHS, HUMULIN R SLIDING SCALE, ZOFRAN 4MG IV Q4H PRN, PERCOCET 5/325MG 2 TABS PO Q6H PRN PAIN. HIS HOME MEDS OF LIPITOR, PEPCID, FOLIC ACID, MEGACE, PROTONIX, AND FLOMAX WERE RESUMED. - Past Medical Family Social History Past Med/Fam/Surg Hx: No changes since H&P Allergies: Allergies Penicillins Allergy (Verified 01/24/23 11:17) - Review of Systems ROS: No change since H&P - Vital Signs and I&O's Vital Signs: Vital Signs Temperature 98.4 F Temperature 98.2 F Pulse Rate [Brachial] 70 Pulse Rate [Brachial] 66 Respiratory Rate 20 Respiratory Rate 20 Respiratory Rate 20 Respiratory Rate 18 Blood Pressure [Right Arm] 142/83 Blood Pressure [Right Arm] 140/80 O2 Sat by Pulse Oximetry 100 O2 Sat by Pulse Oximetry 99 Intake and Output: Intake & Output 05/28/23 05/29/23 05/30/23 05/31/23 11:59 11:59 11:59 11:59 Intake Total 740 / 740 3256 / 3256 Output Total 1220 / 1220 Balance 740 / 740 2035 - Physical Exam Oriented: Normal Eyes: Other (JAUNDICE ) Ear: Normal Nose: Normal Throat: Normal Respiratory: Diminished Cardiovascular: Normal : Normal Auscultation: Bowel Sounds: Normal Palpation: Normal Tenderness: Normal Skin: Decreased Turgur Musculoskeletal: Normal Psychiatric: Normal Mood Description: Calm Affect: Normal Speech Pattern: Clear, Appropriate - Laboratory and Diagnostics Result Diagrams: 05/31/23 04:00 05/31/23 04:00 Labs: Laboratory WBC 6.8 X10^3/uL (3.6-10.0) 05/31/23 04:00 RBC 2.35 X10^6/uL (4.7-6.0) L 05/31/23 04:00 Hgb 7.4 g/dL (13.5-18.0) L 05/31/23 04:00 Hct 21.7 % (42.0-54.0) L 05/31/23 04:00 MCV 92.6 fL (80.0-100.0) 05/31/23 04:00 MCH 31.7 pg (27.0-34.0) 05/31/23 04:00 MCHC 34.2 g/dL (33.0-35.0) 05/31/23 04:00 RDW 13.0 % (11.6-16.5) 05/31/23 04:00 Plt Count 170 X10^3/uL (150.0-450.0) 05/31/23 04:00 MPV 9.4 fL (7.4-11.0) 05/31/23 04:00 Neut % (Auto) 54.9 % (42.0-75.0) 05/31/23 04:00 Lymph % (Auto) 36.6 % (21.0-51.0) 05/31/23 04:00 [place] % (Auto) 6.5 % (0.0-13.0) 05/31/23 04:00 Eos % (Auto) 1.2 % (0.9-2.9) 05/31/23 04:00 Baso % (Auto) 0.8 % (0.2-1.0) 05/31/23 04:00 Neut # (Auto) 3.7 x10^3/uL (2.2-4.8) 05/31/23 04:00 Lymph # (Auto) 2.5 X10^3/uL (1.3-2.9) 05/31/23 04:00 [place] # (Auto) 0.4 x10^3/uL (0.3-0.8) 05/31/23 04:00 Eos # (Auto) 0.1 x10^3/uL (0.0-0.2) 05/31/23 04:00 Baso # (Auto) 0.1 X10^3/uL (0.0-0.1) 05/31/23 04:00 Absolute Nucleated RBC 0.1 /100WBC 05/31/23 04:00 Sodium 140 mmol/L (136-145) 05/31/23 04:00 Corrected Sodium 141 mmol/L (136-145) 05/31/23 04:00 Potassium 3.7 mmol/L (3.5-5.1) 05/31/23 04:00 Chloride 110 mmol/L (98-107) H 05/31/23 04:00 Carbon Dioxide 20.6 mmol/L (21-32) L 05/31/23 04:00 BUN 3 mg/dL (7-18) L 05/31/23 04:00 Creatinine 0.56 mg/dL (0.70-1.30) L 05/31/23 04:00 Est GFR (MDRD) Af Amer > 60 (>60) 05/31/23 04:00 Est GFR (MDRD) Non-Af > 60 (>60) 05/31/23 04:00 Glucose 131 mg/dL (65-99) H 05/31/23 04:00 POC Glucose (mg/dL) 119 mg/dL (65-99) H 05/31/23 05:13 Calcium 6.7 mg/dL (8.5-10.1) L 05/31/23 04:00 Corrected Calcium 8.1 mg/dL (8.5-10.1) L 05/31/23 04:00 Phosphorus 3.1 mg/dL (2.6-4.7) 05/30/23 04:35 Magnesium 1.2 mg/dL (2.0-2.9) L 05/30/23 04:35 Total Bilirubin 0.60 mg/dL (0.2-1.0) 05/31/23 04:00 AST 51 Units/L (15-37) H 05/31/23 04:00 ALT 21 Units/L (12-78) 05/31/23 04:00 Alkaline Phosphatase 84 Units/L (46-116) 05/31/23 04:00 Creatine Kinase 59 Units/L (39-308) 05/29/23 21:05 Troponin I High Sens 9.4 ng/L (4.0-60.0) 05/29/23 21:05 B-Natriuretic Peptide 77.7 pg/mL (0-79) 05/29/23 21:05 Total Protein 4.7 g/dL (6.4-8.2) L 05/31/23 04:00 Albumin 2.3 g/dL (3.4-5.0) L 05/31/23 04:00 Globulin 2.4 g/dL (2.5-4.5) L 05/31/23 04:00 Albumin/Globulin Ratio 1.0 Ratio (1.1-2.1) L 05/31/23 04:00 Prealbumin 10.8 mg/dL (18-35.7) L 05/31/23 04:00 Triglycerides 32 mg/dL (0-150) 05/30/23 04:35 Specimen Type Clean catch urine 05/30/23 06:15 Urine Color Yellow (YELLOW) 05/30/23 06:15 Urine Appearance Clear (CLEAR) 05/30/23 06:15 Urine pH 6.0 (5.0 - 8.0) 05/30/23 06:15 Ur Specific [place] 1.010 (1.000-1.030) 05/30/23 06:15 Urine Protein Negative (NEGATIVE) 05/30/23 06:15 Urine Glucose (UA) Negative (NEGATIVE) 05/30/23 06:15 Urine Ketones Negative (NEGATIVE) 05/30/23 06:15 Urine Blood Negative (NEGATIVE) 05/30/23 06:15 Urine Nitrite Negative (NEGATIVE) 05/30/23 06:15 Urine Bilirubin Negative (NEGATIVE) 05/30/23 06:15 Urine Urobilinogen Normal (NORMAL) 05/30/23 06:15 Ur Leukocyte Esterase Negative (NEGATIVE) 05/30/23 06:15 - Plan (1) Dehydration Status: Acute Plan: NORMAL SALINE AT 40 ML/HR, ALBUMIN 25% IV DAILY, TPN AT 40 ML/HR, OTBS ACHS, HUMULIN R SLIDING SCALE, ZOFRAN 4MG IV Q4H PRN, PERCOCET 5/325MG 2 TABS PO Q6H PRN PAIN. (2) Anemia Status: Acute Qualifiers: Anemia type: iron deficiency Iron deficiency anemia type: unspecified iron deficiency Qualified Code(s): D50.9 - Iron deficiency anemia, unspecified Plan: CONTINUE TO MONITOR H&H (3) Failure to thrive Status: Acute Qualifiers: Failure to thrive age range: in adult (4) Hypoalbuminemia Status: Acute Plan: ALBUMIN 25% IV DAILY (5) Hypokalemia Status: Acute Plan: POTASSIUM AND MAGNESIUM REPLACEMENT (6) Hypomagnesemia Status: Acute Plan: POTASSIUM AND MAGNESIUM REPLACEMENT (7) Generalized weakness Status: Acute Plan: PT/OT (8) BPH (benign prostatic hyperplasia) Status: Chronic Qualifiers: Lower urinary tract symptom presence: symptoms absent (9) Hyperlipidemia Status: Chronic Qualifiers: Hyperlipidemia type: mixed hyperlipidemia Plan: CONTINUE LIPITOR (10) Gastroesophageal reflux disease Status: Chronic Qualifiers: Esophagitis presence: with esophagitis Esophagitis bleeding: unspecified whether hemorrhage Qualified Code(s): K21.00 - Gastro-esophageal reflux disease with esophagitis, without bleeding Plan: CONTINUE PEPCID AND PROTONIX
[2023-05-31] MEDS: MEGACE PO SCH (10:10)
[2023-05-31] MEDS: LIPITOR TAB 40 MG PO SCH (10:10)
[2023-05-31] MEDS: PEPCID TAB 20 MG PO SCH ×2 (10:11→20:30)
[2023-05-31] MEDS: FOLIC ACID TAB 1 MG PO SCH (10:11)
[2023-05-31] MEDS: PROTONIX TAB 40 MG PO SCH ×2 (10:11→20:30)
[2023-05-31] MEDS: ALBUMIN HUMAN 25%- 100 ML 100 ML IV SCH (10:11)
[2023-05-31] MEDS: CLINIMIX 4.25%-5% 1,000 ML with MVI INJ (ADULT) 10 ML, POTASSIUM CHLORIDE INJ 40 MEQ VI... IV SCH ×8 (10:17→15:37)
[2023-05-31] MEDS: NS 1,000 ML IV 1,000 ML IV SCH (12:44)
[2023-05-31] MEDS ORDERED: DRUG FILTER EXTENSION SET ONE (15:29)
[2023-05-31] MEDS: FLOMAX PO SCH (20:31)
[2023-06-01] MEDS: NS 1,000 ML IV 1,000 ML IV SCH ×2 (01:48→16:09)
[2023-06-01] MEDS: PERCOCET TAB 5/325 MG PO PRN ×3 (04:07→20:10)
[2023-06-01 05:37] LABS: BASOPHILS % (AUTO) 0.4 % (0.2-1.0); EOSINOPHILS # (AUTO) 0.1 x10^3/uL (0.0-0.2); HEMATOCRIT 22.1 % (42.0-54.0); HEMOGLOBIN 7.6 g/dL (13.5-18.0); LYMPHOCYTES # (AUTO) 2.4 X10^3/uL (1.3-2.9); LYMPHOCYTES % (AUTO) 33.6 % (21.0-51.0); MEAN CORPUSCULAR HEMOGLOBIN 31.9 pg (27.0-34.0); MEAN CORPUSCULAR HGB CONC 34.4 g/dL (33.0-35.0); MEAN CORPUSCULAR VOLUME 92.7 fL (80.0-100.0); MEAN PLATELET VOLUME 9.7 fL (7.4-11.0); MONOCYTES # (AUTO) 0.6 x10^3/uL (0.3-0.8); MONOCYTES % (AUTO) 7.7 % (0.0-13.0); NEUTROPHILS # (AUTO) 4.2 x10^3/uL (2.2-4.8); NEUTROPHILS % (AUTO) 57.3 % (42.0-75.0); PLATELET COUNT 174 X10^3/uL (150.0-450.0); RED BLOOD COUNT 2.38 X10^6/uL (4.7-6.0); RED CELL DISTRIBUTION WIDTH 12.9 % (11.6-16.5); WHITE BLOOD COUNT 7.3 X10^3/uL (3.6-10.0)
[2023-06-01 05:45] LABS: ALANINE AMINOTRANSFERASE 13 Units/L (12-78); ALBUMIN 2.7 g/dL (3.4-5.0); ALKALINE PHOSPHATASE 77 Units/L (46-116); ASPARTATE AMINO TRANSFERASE 29 Units/L (15-37); BLOOD UREA NITROGEN 3 mg/dL (7-18); CALCIUM 7.3 mg/dL (8.5-10.1); CARBON DIOXIDE 25.1 mmol/L (21-32); CHLORIDE 108 mmol/L (98-107); COR CA(FOR HYPOALB) 8.3 mg/dL (8.5-10.1); CREATININE 0.52 mg/dL (0.70-1.30); GLUCOSE 107 mg/dL (65-99); MAGNESIUM 1.8 mg/dL (2.0-2.9); POTASSIUM 4.1 mmol/L (3.5-5.1); SODIUM 139 mmol/L (136-145); TOTAL PROTEIN 5.1 g/dL (6.4-8.2); eGFR NON BLACK RACES > 60 (>60)
[2023-06-01] MEDS ORDERED: CONSULT PHARMACY - POTASSIUM & MAGNESIUM XX SCH (06:00)
[2023-06-01] MEDS: ALBUMIN HUMAN 25%- 100 ML 100 ML IV SCH (08:13)
[2023-06-01] MEDS: MEGACE PO SCH (08:17)
[2023-06-01] MEDS: MAG-OX TAB PO SCH ×2 (08:17→20:10)
[2023-06-01] MEDS: PROTONIX TAB 40 MG PO SCH ×2 (08:17→20:10)
[2023-06-01] MEDS: PEPCID TAB 20 MG PO SCH ×2 (08:18→20:10)
[2023-06-01] MEDS: FOLIC ACID TAB 1 MG PO SCH (08:18)
[2023-06-01] MEDS: LIPITOR TAB 40 MG PO SCH (08:18)
--- NOTE | 2023-06-01 08:32 | PCM.PROG ---
Progress Note - Progress Note for Day of Date of Exam: 06/01/23 - Subjective Subjective: IS CURRENTLY INPATIENT STATUS FOR TREATMENT OF DEHYDRATION, ANEMIA, ELECTROLYTE DEPLETION, GENERALIZED WEAKNESS. HE HAS A NEWLY DIAGNOSED LEFT LUNG MASS. HIS PMH INCLUDES: HIS PMH INCLUDES: GERD, ESOPHAGEAL STRICTURE, CHRONIC PANCREATITIS, OSTEOARTHRITIS, BPH, HYPERLIPIDEMIA, HIP REPLACEMENT, SARAH IN LEFT LEG. TODAY, HE IS ALERT AND ORIENTED, LYING IN BED ON MORNING ROUNDS. HE CONTINUES TO COMPLAIN OF GENERALIZED WEAKNESS AND DECREASED APPETITE THIS MORNING. ON EXAMINATION, HEART IS REGULAR IN RATE AND RHYTHM. BILATERAL LUNGS ARE NOTED WITH DIMINISHED LUNG SOUNDS. ABDOMEN IS FLAT, SOFT, AND NON-TENDER WITH NORMAL BOWEL SOUNDS NOTED IN ALL QUADRANTS. BILATERAL LOWER EXTREMITIES NOTED WITH NON-PITTING EDEMA. HIS VITALS THIS MORNING ARE: 98.3-68-18-100%-138/85. LABS WERE OBTAINED. WBC 7.3, RBC 2.38, HGB 7.6, HCT 22.1, PLT COUNT 174, SODIUM 139, POTASSIUM 4.1, CHLORIDE 108, BUN 3, CREATININE 0.52, GLUCOSE 107, CALCIUM 7.3, MAGNESIUM 1.8, AST 29, ALT 13, ALK PHOS 77, TOTAL PROTEIN 5.1, ALBUMIN 2.7. HE IS CURRENTLY RECEIVING NORMAL SALINE AT 40 ML/HR, ALBUMIN 25% IV DAILY, TPN AT 40 ML/HR, OTBS ACHS, HUMULIN R SLIDING SCALE, ZOFRAN 4MG IV Q4H PRN, PERCOCET 5/325MG 2 TABS PO Q6H PRN PAIN. HIS HOME MEDS OF LIPITOR, PEPCID, FOLIC ACID, MEGACE, PROTONIX, AND FLOMAX WERE RESUMED. WE WILL CONTINUE WITH CURRENT PLAN OF CARE TODAY. HE IS SCHEDULED TO SEE , ONCOLOGIST, ON 06/06/23. OTHERWISE, WE WILL FOLLOW UP WITH AM LABS AND CONTINUE TO MONITOR. TIME SPENT ON CLINICAL ASSESSMENT, REVIEWING LABS AND IMAGING, DECISION MAKING, AND DOCUMENTATION GREATER THAN 45 MINUTES. - Past Medical Family Social History Past Med/Fam/Surg Hx: No changes since H&P Allergies: Allergies Penicillins Allergy (Verified 01/24/23 11:17) - Review of Systems ROS: No change since H&P - Vital Signs and I&O's Vital Signs: Vital Signs Temperature 98.3 F Temperature 98.5 F Pulse Rate [Brachial] 68 Pulse Rate [Brachial] 65 Respiratory Rate 18 Respiratory Rate 18 Respiratory Rate 18 Respiratory Rate 20 Blood Pressure [Right Arm] 138/85 Blood Pressure [Right Arm] 150/80 O2 Sat by Pulse Oximetry 100 O2 Sat by Pulse Oximetry 100 Intake and Output: Intake & Output 05/29/23 05/30/23 05/31/23 06/01/23 11:59 11:59 11:59 11:59 Intake Total 740 / 740 3256 / 3256 3339 / 3339 Output Total 1820 / 1820 2445 / 2445 Balance 740 / 740 1436 / 1436 894 / 894 - Physical Exam Oriented: Normal Eyes: Other (JAUNDICE ) Ear: Normal Nose: Normal Throat: Normal Respiratory: Diminished Cardiovascular: Normal : Normal Auscultation: Bowel Sounds: Normal Palpation: Normal Tenderness: Normal Skin: Decreased Turgur Musculoskeletal: Normal Psychiatric: Normal Mood Description: Calm Affect: Normal Speech Pattern: Clear, Appropriate - Laboratory and Diagnostics Result Diagrams: 06/01/23 04:06 06/01/23 04:06 Labs: Laboratory WBC 7.3 X10^3/uL (3.6-10.0) 06/01/23 04:06 RBC 2.38 X10^6/uL (4.7-6.0) L 06/01/23 04:06 Hgb 7.6 g/dL (13.5-18.0) L 06/01/23 04:06 Hct 22.1 % (42.0-54.0) L 06/01/23 04:06 MCV 92.7 fL (80.0-100.0) 06/01/23 04:06 MCH 31.9 pg (27.0-34.0) 06/01/23 04:06 MCHC 34.4 g/dL (33.0-35.0) 06/01/23 04:06 RDW 12.9 % (11.6-16.5) 06/01/23 04:06 Plt Count 174 X10^3/uL (150.0-450.0) 06/01/23 04:06 MPV 9.7 fL (7.4-11.0) 06/01/23 04:06 Neut % (Auto) 57.3 % (42.0-75.0) 06/01/23 04:06 Lymph % (Auto) 33.6 % (21.0-51.0) 06/01/23 04:06 [place] % (Auto) 7.7 % (0.0-13.0) 06/01/23 04:06 Eos % (Auto) 1.0 % (0.9-2.9) 06/01/23 04:06 Baso % (Auto) 0.4 % (0.2-1.0) 06/01/23 04:06 Neut # (Auto) 4.2 x10^3/uL (2.2-4.8) 06/01/23 04:06 Lymph # (Auto) 2.4 X10^3/uL (1.3-2.9) 06/01/23 04:06 [place] # (Auto) 0.6 x10^3/uL (0.3-0.8) 06/01/23 04:06 Eos # (Auto) 0.1 x10^3/uL (0.0-0.2) 06/01/23 04:06 Baso # (Auto) 0.0 X10^3/uL (0.0-0.1) 06/01/23 04:06 Absolute Nucleated RBC 0.0 /100WBC 06/01/23 04:06 Sodium 139 mmol/L (136-145) 06/01/23 04:06 Corrected Sodium TNP 06/01/23 04:06 Potassium 4.1 mmol/L (3.5-5.1) 06/01/23 04:06 Chloride 108 mmol/L (98-107) H 06/01/23 04:06 Carbon Dioxide 25.1 mmol/L (21-32) 06/01/23 04:06 BUN 3 mg/dL (7-18) L 06/01/23 04:06 Creatinine 0.52 mg/dL (0.70-1.30) L 06/01/23 04:06 Est GFR (MDRD) Af Amer > 60 (>60) 06/01/23 04:06 Est GFR (MDRD) Non-Af > 60 (>60) 06/01/23 04:06 Glucose 107 mg/dL (65-99) H 06/01/23 04:06 POC Glucose (mg/dL) 141 mg/dL (65-99) H 06/01/23 01:24 Calcium 7.3 mg/dL (8.5-10.1) L 06/01/23 04:06 Corrected Calcium 8.3 mg/dL (8.5-10.1) L 06/01/23 04:06 Phosphorus 3.1 mg/dL (2.6-4.7) 05/30/23 04:35 Magnesium 1.8 mg/dL (2.0-2.9) L 06/01/23 04:06 Total Bilirubin 0.40 mg/dL (0.2-1.0) 06/01/23 04:06 AST 29 Units/L (15-37) 06/01/23 04:06 ALT 13 Units/L (12-78) 06/01/23 04:06 Alkaline Phosphatase 77 Units/L (46-116) 06/01/23 04:06 Creatine Kinase 59 Units/L (39-308) 05/29/23 21:05 Troponin I High Sens 9.4 ng/L (4.0-60.0) 05/29/23 21:05 B-Natriuretic Peptide 77.7 pg/mL (0-79) 05/29/23 21:05 Total Protein 5.1 g/dL (6.4-8.2) L 06/01/23 04:06 Albumin 2.7 g/dL (3.4-5.0) L 06/01/23 04:06 Globulin 2.4 g/dL (2.5-4.5) L 06/01/23 04:06 Albumin/Globulin Ratio 1.1 Ratio (1.1-2.1) 06/01/23 04:06 Prealbumin 10.8 mg/dL (18-35.7) L 05/31/23 04:00 Triglycerides 32 mg/dL (0-150) 05/30/23 04:35 Specimen Type Clean catch urine 05/30/23 06:15 Urine Color Yellow (YELLOW) 05/30/23 06:15 Urine Appearance Clear (CLEAR) 05/30/23 06:15 Urine pH 6.0 (5.0 - 8.0) 05/30/23 06:15 Ur Specific [place] 1.010 (1.000-1.030) 05/30/23 06:15 Urine Protein Negative (NEGATIVE) 05/30/23 06:15 Urine Glucose (UA) Negative (NEGATIVE) 05/30/23 06:15 Urine Ketones Negative (NEGATIVE) 05/30/23 06:15 Urine Blood Negative (NEGATIVE) 05/30/23 06:15 Urine Nitrite Negative (NEGATIVE) 05/30/23 06:15 Urine Bilirubin Negative (NEGATIVE) 05/30/23 06:15 Urine Urobilinogen Normal (NORMAL) 05/30/23 06:15 Ur Leukocyte Esterase Negative (NEGATIVE) 05/30/23 06:15 - Plan (1) Dehydration Status: Acute Plan: NORMAL SALINE AT 40 ML/HR, ALBUMIN 25% IV DAILY, TPN AT 40 ML/HR, OTBS ACHS, HUMULIN R SLIDING SCALE, ZOFRAN 4MG IV Q4H PRN, PERCOCET 5/325MG 2 TABS PO Q6H PRN PAIN. (2) Anemia Status: Acute Qualifiers: Anemia type: iron deficiency Iron deficiency anemia type: unspecified iron deficiency Qualified Code(s): D50.9 - Iron deficiency anemia, unspecified Plan: CONTINUE TO MONITOR H&H (3) Failure to thrive Status: Acute Qualifiers: Failure to thrive age range: in adult (4) Hypoalbuminemia Status: Acute Plan: ALBUMIN 25% IV DAILY (5) Hypokalemia Status: Acute Plan: POTASSIUM AND MAGNESIUM REPLACEMENT (6) Hypomagnesemia Status: Acute Plan: POTASSIUM AND MAGNESIUM REPLACEMENT (7) Generalized weakness Status: Acute Plan: PT/OT (8) BPH (benign prostatic hyperplasia) Status: Chronic Qualifiers: Lower urinary tract symptom presence: symptoms absent (9) Hyperlipidemia Status: Chronic Qualifiers: Hyperlipidemia type: mixed hyperlipidemia Plan: CONTINUE LIPITOR (10) Gastroesophageal reflux disease Status: Chronic Qualifiers: Esophagitis presence: with esophagitis Esophagitis bleeding: unspecified whether hemorrhage Qualified Code(s): K21.00 - Gastro-esophageal reflux disease with esophagitis, without bleeding Plan: CONTINUE PEPCID AND PROTONIX
[2023-06-01] MEDS: CLINIMIX 4.25%-5% 1,000 ML with MVI INJ (ADULT) 10 ML, POTASSIUM CHLORIDE INJ 40 MEQ VI... IV SCH ×4 (10:49)
[2023-06-01] MEDS: FLOMAX PO SCH (20:10)
[2023-06-02] MEDS: PERCOCET TAB 5/325 MG PO PRN ×4 (02:11→23:30)
[2023-06-02] MEDS: NS 1,000 ML IV 1,000 ML IV SCH ×2 (03:10→17:37)
[2023-06-02 05:44] LABS: BASOPHILS % (AUTO) 0.3 % (0.2-1.0); EOSINOPHILS % (AUTO) 0.6 % (0.9-2.9); HEMATOCRIT 22.4 % (42.0-54.0); HEMOGLOBIN 7.6 g/dL (13.5-18.0); LYMPHOCYTES # (AUTO) 2.3 X10^3/uL (1.3-2.9); LYMPHOCYTES % (AUTO) 33.3 % (21.0-51.0); MEAN CORPUSCULAR HEMOGLOBIN 31.7 pg (27.0-34.0); MEAN CORPUSCULAR HGB CONC 33.9 g/dL (33.0-35.0); MEAN CORPUSCULAR VOLUME 93.7 fL (80.0-100.0); MEAN PLATELET VOLUME 9.4 fL (7.4-11.0); MONOCYTES # (AUTO) 0.6 x10^3/uL (0.3-0.8); MONOCYTES % (AUTO) 8.3 % (0.0-13.0); NEUTROPHILS # (AUTO) 3.9 x10^3/uL (2.2-4.8); NEUTROPHILS % (AUTO) 57.5 % (42.0-75.0); PLATELET COUNT 164 X10^3/uL (150.0-450.0); RED BLOOD COUNT 2.39 X10^6/uL (4.7-6.0); RED CELL DISTRIBUTION WIDTH 12.9 % (11.6-16.5); WHITE BLOOD COUNT 6.8 X10^3/uL (3.6-10.0)
[2023-06-02 05:52] LABS: ALANINE AMINOTRANSFERASE 16 Units/L (12-78); ALBUMIN 2.8 g/dL (3.4-5.0); ALKALINE PHOSPHATASE 75 Units/L (46-116); ASPARTATE AMINO TRANSFERASE 22 Units/L (15-37); BLOOD UREA NITROGEN 4 mg/dL (7-18); CALCIUM 7.4 mg/dL (8.5-10.1); CARBON DIOXIDE 22.1 mmol/L (21-32); CHLORIDE 108 mmol/L (98-107); COR CA(FOR HYPOALB) 8.4 mg/dL (8.5-10.1); CREATININE 0.55 mg/dL (0.70-1.30); GLUCOSE 104 mg/dL (65-99); SODIUM 139 mmol/L (136-145); TOTAL PROTEIN 5.5 g/dL (6.4-8.2); eGFR NON BLACK RACES > 60 (>60)
[2023-06-02 05:55] LABS: MAGNESIUM 1.9 mg/dL (2.0-2.9); PHOSPHORUS 2.1 mg/dL (2.6-4.7)
--- NOTE | 2023-06-02 08:56 | PCM.PROG ---
Progress Note - Progress Note for Day of Date of Exam: 06/02/23 - Subjective Subjective: IS CURRENTLY INPATIENT STATUS FOR TREATMENT OF DEHYDRATION, ANEMIA, ELECTROLYTE DEPLETION, GENERALIZED WEAKNESS. HE HAS A NEWLY DIAGNOSED LEFT LUNG MASS. HIS PMH INCLUDES: HIS PMH INCLUDES: GERD, ESOPHAGEAL STRICTURE, CHRONIC PANCREATITIS, OSTEOARTHRITIS, BPH, HYPERLIPIDEMIA, HIP REPLACEMENT, SARAH IN LEFT LEG. TODAY, HE IS ALERT AND ORIENTED, LYING IN BED ON MORNING ROUNDS. HE CONTINUES TO COMPLAIN OF GENERALIZED WEAKNESS AND DECREASED APPETITE THIS MORNING. ON EXAMINATION, HEART IS REGULAR IN RATE AND RHYTHM. BILATERAL LUNGS ARE NOTED WITH DIMINISHED LUNG SOUNDS. ABDOMEN IS FLAT, SOFT, AND NON-TENDER WITH NORMAL BOWEL SOUNDS NOTED IN ALL QUADRANTS. BILATERAL LOWER EXTREMITIES NOTED WITH NON-PITTING EDEMA. HIS VITALS THIS MORNING ARE: 98.7-75-18-100%-152/84. LABS WERE OBTAINED. WBC 6.8, RBC 2.39, HGB 7.6, HCT 22.4, PLT COUNT 164, SODIUM 139, POTASSIUM 4.0, CHLORIDE 108, BUN 4, CREATININE 0.55, GLUCOSE 104, CALCIUM 7.4, PHOSPHORUS 2.1, MAGNESIUM 1.9, AST 22, ALT 16, ALK PHOS 75, TOTAL PROTEIN 5.5, ALBUMIN 2.8. HE IS CURRENTLY RECEIVING NORMAL SALINE AT 40 ML/HR, ALBUMIN 25% IV DAILY, TPN AT 40 ML/HR, OTBS ACHS, HUMULIN R SLIDING SCALE, ZOFRAN 4MG IV Q4H PRN, PERCOCET 5/325MG 2 TABS PO Q6H PRN PAIN. HIS HOME MEDS OF LIPITOR, PEPCID, FOLIC ACID, MEGACE, PROTONIX, AND FLOMAX WERE RESUMED. WE WILL CONTINUE WITH CURRENT PLAN OF CARE TODAY. HE IS SCHEDULED TO SEE , ONCOLOGIST, ON 06/06/23. OTHERWISE, WE WILL FOLLOW UP WITH AM LABS AND CONTINUE TO MONITOR. TIME SPENT ON CLINICAL ASSESSMENT, REVIEWING LABS AND IMAGING, DECISION MAKING, AND DOCUMENTATION GREATER THAN 45 MINUTES. - Past Medical Family Social History Past Med/Fam/Surg Hx: No changes since H&P Allergies: Allergies Penicillins Allergy (Verified 01/24/23 11:17) - Review of Systems ROS: No change since H&P - Vital Signs and I&O's Vital Signs: Vital Signs Temperature 98.7 F Temperature 98.6 F Pulse Rate [Brachial] 75 Pulse Rate [Brachial] 72 Respiratory Rate 18 Respiratory Rate 20 Respiratory Rate 18 Respiratory Rate 18 Blood Pressure [Right Arm] 152/84 Blood Pressure [Right Arm] 154/80 O2 Sat by Pulse Oximetry 100 O2 Sat by Pulse Oximetry 99 Intake and Output: Intake & Output 05/30/23 05/31/23 06/01/23 06/02/23 11:59 11:59 11:59 11:59 Intake Total 740 / 740 3256 / 3256 3339 / 3339 2195 / 2195 Output Total 1820 / 1820 2445 / 2445 3745 / 3745 Balance 740 / 740 1436 / 1436 894 / 894 -1550 / -1550 - Physical Exam Oriented: Normal Eyes: Other (JAUNDICE ) Ear: Normal Nose: Normal Throat: Normal Respiratory: Diminished Cardiovascular: Normal : Normal Auscultation: Bowel Sounds: Normal Tenderness: Normal Skin: Decreased Turgur Musculoskeletal: Normal Psychiatric: Normal Mood Description: Calm Affect: Normal Speech Pattern: Clear, Appropriate - Laboratory and Diagnostics Result Diagrams: 06/02/23 05:02 06/02/23 05:02 Labs: Laboratory WBC 6.8 X10^3/uL (3.6-10.0) 06/02/23 05:02 RBC 2.39 X10^6/uL (4.7-6.0) L 06/02/23 05:02 Hgb 7.6 g/dL (13.5-18.0) L 06/02/23 05:02 Hct 22.4 % (42.0-54.0) L 06/02/23 05:02 MCV 93.7 fL (80.0-100.0) 06/02/23 05:02 MCH 31.7 pg (27.0-34.0) 06/02/23 05:02 MCHC 33.9 g/dL (33.0-35.0) 06/02/23 05:02 RDW 12.9 % (11.6-16.5) 06/02/23 05:02 Plt Count 164 X10^3/uL (150.0-450.0) 06/02/23 05:02 MPV 9.4 fL (7.4-11.0) 06/02/23 05:02 Neut % (Auto) 57.5 % (42.0-75.0) 06/02/23 05:02 Lymph % (Auto) 33.3 % (21.0-51.0) 06/02/23 05:02 [place] % (Auto) 8.3 % (0.0-13.0) 06/02/23 05:02 Eos % (Auto) 0.6 % (0.9-2.9) L 06/02/23 05:02 Baso % (Auto) 0.3 % (0.2-1.0) 06/02/23 05:02 Neut # (Auto) 3.9 x10^3/uL (2.2-4.8) 06/02/23 05:02 Lymph # (Auto) 2.3 X10^3/uL (1.3-2.9) 06/02/23 05:02 [place] # (Auto) 0.6 x10^3/uL (0.3-0.8) 06/02/23 05:02 Eos # (Auto) 0.0 x10^3/uL (0.0-0.2) 06/02/23 05:02 Baso # (Auto) 0.0 X10^3/uL (0.0-0.1) 06/02/23 05:02 Absolute Nucleated RBC 0.0 /100WBC 06/02/23 05:02 Sodium 139 mmol/L (136-145) 06/02/23 05:02 Corrected Sodium TNP 06/02/23 05:02 Potassium 4.0 mmol/L (3.5-5.1) 06/02/23 05:02 Chloride 108 mmol/L (98-107) H 06/02/23 05:02 Carbon Dioxide 22.1 mmol/L (21-32) 06/02/23 05:02 BUN 4 mg/dL (7-18) L 06/02/23 05:02 Creatinine 0.55 mg/dL (0.70-1.30) L 06/02/23 05:02 Est GFR (MDRD) Af Amer > 60 (>60) 06/02/23 05:02 Est GFR (MDRD) Non-Af > 60 (>60) 06/02/23 05:02 Glucose 104 mg/dL (65-99) H 06/02/23 05:02 POC Glucose (mg/dL) 134 mg/dL (65-99) H 06/02/23 01:33 Calcium 7.4 mg/dL (8.5-10.1) L 06/02/23 05:02 Corrected Calcium 8.4 mg/dL (8.5-10.1) L 06/02/23 05:02 Phosphorus 2.1 mg/dL (2.6-4.7) L 06/02/23 05:02 Magnesium 1.9 mg/dL (2.0-2.9) L 06/02/23 05:02 Total Bilirubin 0.30 mg/dL (0.2-1.0) 06/02/23 05:02 AST 22 Units/L (15-37) 06/02/23 05:02 ALT 16 Units/L (12-78) 06/02/23 05:02 Alkaline Phosphatase 75 Units/L (46-116) 06/02/23 05:02 Creatine Kinase 59 Units/L (39-308) 05/29/23 21:05 Troponin I High Sens 9.4 ng/L (4.0-60.0) 05/29/23 21:05 B-Natriuretic Peptide 77.7 pg/mL (0-79) 05/29/23 21:05 Total Protein 5.5 g/dL (6.4-8.2) L 06/02/23 05:02 Albumin 2.8 g/dL (3.4-5.0) L 06/02/23 05:02 Globulin 2.7 g/dL (2.5-4.5) 06/02/23 05:02 Albumin/Globulin Ratio 1.0 Ratio (1.1-2.1) L 06/02/23 05:02 Prealbumin 10.8 mg/dL (18-35.7) L 05/31/23 04:00 Triglycerides 21 mg/dL (0-150) 06/02/23 05:02 Specimen Type Clean catch urine 05/30/23 06:15 Urine Color Yellow (YELLOW) 05/30/23 06:15 Urine Appearance Clear (CLEAR) 05/30/23 06:15 Urine pH 6.0 (5.0 - 8.0) 05/30/23 06:15 Ur Specific [place] 1.010 (1.000-1.030) 05/30/23 06:15 Urine Protein Negative (NEGATIVE) 05/30/23 06:15 Urine Glucose (UA) Negative (NEGATIVE) 05/30/23 06:15 Urine Ketones Negative (NEGATIVE) 05/30/23 06:15 Urine Blood Negative (NEGATIVE) 05/30/23 06:15 Urine Nitrite Negative (NEGATIVE) 05/30/23 06:15 Urine Bilirubin Negative (NEGATIVE) 05/30/23 06:15 Urine Urobilinogen Normal (NORMAL) 05/30/23 06:15 Ur Leukocyte Esterase Negative (NEGATIVE) 05/30/23 06:15 - Plan (1) Dehydration Status: Acute Plan: NORMAL SALINE AT 40 ML/HR, ALBUMIN 25% IV DAILY, TPN AT 40 ML/HR, OTBS ACHS, HUMULIN R SLIDING SCALE, ZOFRAN 4MG IV Q4H PRN, PERCOCET 5/325MG 2 TABS PO Q6H PRN PAIN. (2) Anemia Status: Acute Qualifiers: Anemia type: iron deficiency Iron deficiency anemia type: unspecified iron deficiency Qualified Code(s): D50.9 - Iron deficiency anemia, unspecified Plan: CONTINUE TO MONITOR H&H (3) Failure to thrive Status: Acute Qualifiers: Failure to thrive age range: in adult (4) Hypoalbuminemia Status: Acute Plan: ALBUMIN 25% IV DAILY (5) Hypokalemia Status: Acute Plan: POTASSIUM AND MAGNESIUM REPLACEMENT (6) Hypomagnesemia Status: Acute Plan: POTASSIUM AND MAGNESIUM REPLACEMENT (7) Generalized weakness Status: Acute Plan: PT/OT (8) BPH (benign prostatic hyperplasia) Status: Chronic Qualifiers: Lower urinary tract symptom presence: symptoms absent (9) Hyperlipidemia Status: Chronic Qualifiers: Hyperlipidemia type: mixed hyperlipidemia Plan: CONTINUE LIPITOR (10) Gastroesophageal reflux disease Status: Chronic Qualifiers: Esophagitis presence: with esophagitis Esophagitis bleeding: unspecified whether hemorrhage Qualified Code(s): K21.00 - Gastro-esophageal reflux disease with esophagitis, without bleeding Plan: CONTINUE PEPCID AND PROTONIX
[2023-06-02] MEDS: FOLIC ACID TAB 1 MG PO SCH (09:11)
[2023-06-02] MEDS: ALBUMIN HUMAN 25%- 100 ML 100 ML IV SCH (09:11)
[2023-06-02] MEDS: MEGACE PO SCH (09:11)
[2023-06-02] MEDS: MAG-OX TAB PO SCH ×2 (09:12→20:38)
[2023-06-02] MEDS: PROTONIX TAB 40 MG PO SCH ×2 (09:12→20:39)
[2023-06-02] MEDS: PEPCID TAB 20 MG PO SCH ×2 (09:12→20:39)
[2023-06-02] MEDS: LIPITOR TAB 40 MG PO SCH (09:12)
[2023-06-02] MEDS: CLINIMIX 4.25%-5% 1,000 ML with MVI INJ (ADULT) 10 ML, POTASSIUM CHLORIDE INJ 40 MEQ VI... IV SCH ×4 (11:10)
[2023-06-02] MEDS: FLOMAX PO SCH (20:38)
[2023-06-03] MEDS: NS 1,000 ML IV 1,000 ML IV SCH ×2 (04:53→19:28)
[2023-06-03] MEDS: PERCOCET TAB 5/325 MG PO PRN ×3 (04:54→19:36)
[2023-06-03 05:01] LABS: BASOPHILS # (AUTO) 0.2 X10^3/uL (0.0-0.1); BASOPHILS % (AUTO) 3.7 % (0.2-1.0); EOSINOPHILS # (AUTO) 0.1 x10^3/uL (0.0-0.2); EOSINOPHILS % (AUTO) 1.2 % (0.9-2.9); HEMATOCRIT 24.4 % (42.0-54.0); HEMOGLOBIN 8.3 g/dL (13.5-18.0); LYMPHOCYTES % (AUTO) 30.7 % (21.0-51.0); MEAN CORPUSCULAR HGB CONC 34.2 g/dL (33.0-35.0); MEAN CORPUSCULAR VOLUME 93.6 fL (80.0-100.0); MEAN PLATELET VOLUME 10.2 fL (7.4-11.0); MONOCYTES # (AUTO) 0.4 x10^3/uL (0.3-0.8); MONOCYTES % (AUTO) 6.4 % (0.0-13.0); NEUTROPHILS # (AUTO) 3.8 x10^3/uL (2.2-4.8); PLATELET COUNT 171 X10^3/uL (150.0-450.0); WHITE BLOOD COUNT 6.5 X10^3/uL (3.6-10.0)
[2023-06-03 05:11] LABS: ALANINE AMINOTRANSFERASE 18 Units/L (12-78); ALBUMIN 3.2 g/dL (3.4-5.0); ALKALINE PHOSPHATASE 74 Units/L (46-116); ASPARTATE AMINO TRANSFERASE 23 Units/L (15-37); BLOOD UREA NITROGEN 4 mg/dL (7-18); CALCIUM 7.8 mg/dL (8.5-10.1); CARBON DIOXIDE 22.5 mmol/L (21-32); CHLORIDE 106 mmol/L (98-107); COR CA(FOR HYPOALB) 8.4 mg/dL (8.5-10.1); CREATININE 0.54 mg/dL (0.70-1.30); GLUCOSE 100 mg/dL (65-99); POTASSIUM 4.3 mmol/L (3.5-5.1); SODIUM 139 mmol/L (136-145); TOTAL PROTEIN 6.1 g/dL (6.4-8.2); eGFR NON BLACK RACES > 60 (>60)
[2023-06-03] MEDS: MAG-OX TAB PO SCH ×2 (09:12→20:30)
[2023-06-03] MEDS: ALBUMIN HUMAN 25%- 100 ML 100 ML IV SCH (09:12)
[2023-06-03] MEDS: FOLIC ACID TAB 1 MG PO SCH (09:13)
[2023-06-03] MEDS: MEGACE PO SCH (09:13)
[2023-06-03] MEDS: PROTONIX TAB 40 MG PO SCH ×2 (09:13→20:30)
[2023-06-03] MEDS: LIPITOR TAB 40 MG PO SCH (09:13)
[2023-06-03] MEDS: PEPCID TAB 20 MG PO SCH ×2 (09:13→20:30)
[2023-06-03] MEDS: CLINIMIX 4.25%-5% 1,000 ML with MVI INJ (ADULT) 10 ML, POTASSIUM CHLORIDE INJ 40 MEQ VI... IV SCH ×8 (09:58→15:55)
--- NOTE | 2023-06-03 11:30 | PCM.PROG ---
Progress Note - Progress Note for Day of Date of Exam: 06/03/23 - Subjective Subjective: IS CURRENTLY INPATIENT STATUS FOR TREATMENT OF DEHYDRATION, ANEMIA, ELECTROLYTE DEPLETION, GENERALIZED WEAKNESS. HE HAS A NEWLY DIAGNOSED LEFT LUNG MASS. HIS PMH INCLUDES: HIS PMH INCLUDES: GERD, ESOPHAGEAL STRICTURE, CHRONIC PANCREATITIS, OSTEOARTHRITIS, BPH, HYPERLIPIDEMIA, HIP REPLACEMENT, SARAH IN LEFT LEG. TODAY, HE IS ALERT AND ORIENTED, LYING IN BED ON MORNING ROUNDS. HE CONTINUES TO COMPLAIN OF GENERALIZED WEAKNESS AND DECREASED APPETITE THIS MORNING. HE ADMITS TO SLIGHT IMPROVEMENT IN SYMPTOMS SINCE ADMISSION. ON EXAMINATION, HEART IS REGULAR IN RATE AND RHYTHM. BILATERAL LUNGS ARE NOTED WITH DIMINISHED LUNG SOUNDS. ABDOMEN IS FLAT, SOFT, AND NON-TENDER WITH NORMAL BOWEL SOUNDS NOTED IN ALL QUADRANTS. BILATERAL LOWER EXTREMITIES NOTED WITH NON-PITTING EDEMA. HIS VITALS THIS MORNING ARE: 98.3-86-20-100%-147/75. LABS WERE OBTAINED. WBC 6.5, RBC 2.60, HGB 8.3, HCT 24.4, PLT COUNT 171, SODIUM 139, POTASSIUM 4.3, CHLORIDE 106, BUN 4, CREATININE 0.54, GLUCOSE 100, CALCIUM 7.8, MAGNESIUM 2.0, AST 23, ALT 18, ALK PHOS 74, TOTAL PROTEIN 6.1, ALBUMIN 3.2. HE IS CURRENTLY RECEIVING NORMAL SALINE AT 40 ML/HR, ALBUMIN 25% IV DAILY, TPN AT 40 ML/HR, OTBS ACHS, HUMULIN R SLIDING SCALE, ZOFRAN 4MG IV Q4H PRN, PERCOCET 5/325MG 2 TABS PO Q6H PRN PAIN. HIS HOME MEDS OF LIPITOR, PEPCID, FOLIC ACID, MEGACE, PROTONIX, AND FLOMAX WERE RESUMED. WE WILL CONTINUE WITH CURRENT PLAN OF CARE TODAY. HE IS SCHEDULED TO SEE , ONCOLOGIST, ON 06/06/23. OTHERWISE, WE WILL FOLLOW UP WITH AM LABS AND CONTINUE TO MONITOR. TIME SPENT ON CLINICAL ASSESSMENT, REVIEWING LABS AND IMAGING, DECISION MAKING, AND DOCUMENTATION GREATER THAN 45 MINUTES. - Past Medical Family Social History Past Med/Fam/Surg Hx: No changes since H&P Allergies: Allergies Penicillins Allergy (Verified 01/24/23 11:17) - Review of Systems ROS: No change since H&P - Vital Signs and I&O's Vital Signs: Vital Signs Temperature 98.3 F Temperature 98.3 F Temperature 98.3 F Pulse Rate [Brachial] 86 Pulse Rate [Brachial] 68 Pulse Rate [Brachial] 68 Respiratory Rate 20 Respiratory Rate 18 Respiratory Rate 20 Respiratory Rate 20 Respiratory Rate 20 Blood Pressure [Right Arm] 147/75 Blood Pressure [Right Arm] 136/74 Blood Pressure [Right Arm] 136/74 O2 Sat by Pulse Oximetry 100 O2 Sat by Pulse Oximetry 100 O2 Sat by Pulse Oximetry 100 Intake and Output: Intake & Output 05/31/23 06/01/23 06/02/23 06/03/23 11:59 11:59 11:59 11:59 Intake Total 3256 / 3256 3339 / 3339 2195 / 2195 2915 / 2915 Output Total 1820 / 1820 2445 / 2445 3745 / 3745 2265 / 2265 Balance 1436 / 1436 894 / 894 -1550 / -1550 650 / 650 - Physical Exam Oriented: Normal Eyes: Other (JAUNDICE ) Ear: Normal Nose: Normal Throat: Normal Respiratory: Diminished Cardiovascular: Normal : Normal Auscultation: Bowel Sounds: Normal Palpation: Normal Tenderness: Normal Skin: Decreased [place] Musculoskeletal: Normal Psychiatric: Normal Mood Description: Calm Affect: Normal Speech Pattern: Clear, Appropriate - Laboratory and Diagnostics Result Diagrams: 06/03/23 04:00 06/03/23 04:00 Labs: Laboratory WBC 6.5 X10^3/uL (3.6-10.0) 06/03/23 04:00 RBC 2.60 X10^6/uL (4.7-6.0) L 06/03/23 04:00 Hgb 8.3 g/dL (13.5-18.0) L 06/03/23 04:00 Hct 24.4 % (42.0-54.0) L 06/03/23 04:00 MCV 93.6 fL (80.0-100.0) 06/03/23 04:00 MCH 32.0 pg (27.0-34.0) 06/03/23 04:00 MCHC 34.2 g/dL (33.0-35.0) 06/03/23 04:00 RDW 13.0 % (11.6-16.5) 06/03/23 04:00 Plt Count 171 X10^3/uL (150.0-450.0) 06/03/23 04:00 MPV 10.2 fL (7.4-11.0) 06/03/23 04:00 Neut % (Auto) 58.0 % (42.0-75.0) 06/03/23 04:00 Lymph % (Auto) 30.7 % (21.0-51.0) 06/03/23 04:00 [place] % (Auto) 6.4 % (0.0-13.0) 06/03/23 04:00 Eos % (Auto) 1.2 % (0.9-2.9) 06/03/23 04:00 Baso % (Auto) 3.7 % (0.2-1.0) H 06/03/23 04:00 Neut # (Auto) 3.8 x10^3/uL (2.2-4.8) 06/03/23 04:00 Lymph # (Auto) 2.0 X10^3/uL (1.3-2.9) 06/03/23 04:00 [place] # (Auto) 0.4 x10^3/uL (0.3-0.8) 06/03/23 04:00 Eos # (Auto) 0.1 x10^3/uL (0.0-0.2) 06/03/23 04:00 Baso # (Auto) 0.2 X10^3/uL (0.0-0.1) H 06/03/23 04:00 Absolute Nucleated RBC 0.0 /100WBC 06/03/23 04:00 Sodium 139 mmol/L (136-145) 06/03/23 04:00 Corrected Sodium TNP 06/03/23 04:00 Potassium 4.3 mmol/L (3.5-5.1) 06/03/23 04:00 Chloride 106 mmol/L (98-107) 06/03/23 04:00 Carbon Dioxide 22.5 mmol/L (21-32) 06/03/23 04:00 BUN 4 mg/dL (7-18) L 06/03/23 04:00 Creatinine 0.54 mg/dL (0.70-1.30) L 06/03/23 04:00 Est GFR (MDRD) Af Amer > 60 (>60) 06/03/23 04:00 Est GFR (MDRD) Non-Af > 60 (>60) 06/03/23 04:00 Glucose 100 mg/dL (65-99) H 06/03/23 04:00 POC Glucose (mg/dL) 124 mg/dL (65-99) H 06/03/23 10:35 Calcium 7.8 mg/dL (8.5-10.1) L 06/03/23 04:00 Corrected Calcium 8.4 mg/dL (8.5-10.1) L 06/03/23 04:00 Phosphorus 2.1 mg/dL (2.6-4.7) L 06/02/23 05:02 Magnesium 2.0 mg/dL (2.0-2.9) 06/03/23 04:00 Total Bilirubin 0.30 mg/dL (0.2-1.0) 06/03/23 04:00 AST 23 Units/L (15-37) 06/03/23 04:00 ALT 18 Units/L (12-78) 06/03/23 04:00 Alkaline Phosphatase 74 Units/L (46-116) 06/03/23 04:00 Creatine Kinase 59 Units/L (39-308) 05/29/23 21:05 Troponin I High Sens 9.4 ng/L (4.0-60.0) 05/29/23 21:05 B-Natriuretic Peptide 77.7 pg/mL (0-79) 05/29/23 21:05 Total Protein 6.1 g/dL (6.4-8.2) L 06/03/23 04:00 Albumin 3.2 g/dL (3.4-5.0) L 06/03/23 04:00 Globulin 2.9 g/dL (2.5-4.5) 06/03/23 04:00 Albumin/Globulin Ratio 1.1 Ratio (1.1-2.1) 06/03/23 04:00 Prealbumin 10.8 mg/dL (18-35.7) L 05/31/23 04:00 Triglycerides 21 mg/dL (0-150) 06/02/23 05:02 Specimen Type Clean catch urine 05/30/23 06:15 Urine Color Yellow (YELLOW) 05/30/23 06:15 Urine Appearance Clear (CLEAR) 05/30/23 06:15 Urine pH 6.0 (5.0 - 8.0) 05/30/23 06:15 Ur Specific [place] 1.010 (1.000-1.030) 05/30/23 06:15 Urine Protein Negative (NEGATIVE) 05/30/23 06:15 Urine Glucose (UA) Negative (NEGATIVE) 05/30/23 06:15 Urine Ketones Negative (NEGATIVE) 05/30/23 06:15 Urine Blood Negative (NEGATIVE) 05/30/23 06:15 Urine Nitrite Negative (NEGATIVE) 05/30/23 06:15 Urine Bilirubin Negative (NEGATIVE) 05/30/23 06:15 Urine Urobilinogen Normal (NORMAL) 05/30/23 06:15 Ur Leukocyte Esterase Negative (NEGATIVE) 05/30/23 06:15 - Plan (1) Dehydration Status: Acute Plan: NORMAL SALINE AT 40 ML/HR, ALBUMIN 25% IV DAILY, TPN AT 40 ML/HR, OTBS ACHS, HUMULIN R SLIDING SCALE, ZOFRAN 4MG IV Q4H PRN, PERCOCET 5/325MG 2 TABS PO Q6H PRN PAIN. (2) Anemia Status: Acute Qualifiers: Anemia type: iron deficiency Iron deficiency anemia type: unspecified iron deficiency Qualified Code(s): D50.9 - Iron deficiency anemia, unspecified Plan: CONTINUE TO MONITOR H&H (3) Failure to thrive Status: Acute Qualifiers: Failure to thrive age range: in adult (4) Hypoalbuminemia Status: Acute Plan: ALBUMIN 25% IV DAILY (5) Hypokalemia Status: Acute Plan: POTASSIUM AND MAGNESIUM REPLACEMENT (6) Hypomagnesemia Status: Acute Plan: POTASSIUM AND MAGNESIUM REPLACEMENT (7) Generalized weakness Status: Acute Plan: PT/OT (8) BPH (benign prostatic hyperplasia) Status: Chronic Qualifiers: Lower urinary tract symptom presence: symptoms absent (9) Hyperlipidemia Status: Chronic Qualifiers: Hyperlipidemia type: mixed hyperlipidemia Plan: CONTINUE LIPITOR (10) Gastroesophageal reflux disease Status: Chronic Qualifiers: Esophagitis presence: with esophagitis Esophagitis bleeding: unspecified whether hemorrhage Qualified Code(s): K21.00 - Gastro-esophageal reflux disease with esophagitis, without bleeding Plan: CONTINUE PEPCID AND PROTONIX
[2023-06-03] MEDS ORDERED: DRUG FILTER EXTENSION SET ONE (15:55)
[2023-06-03] MEDS: FLOMAX PO SCH (20:29)
[2023-06-04] MEDS: PERCOCET TAB 5/325 MG PO PRN ×2 (01:26→08:47)
[2023-06-04] MEDS: NS 1,000 ML IV 1,000 ML IV SCH ×2 (02:47→06:01)
[2023-06-04 06:34] LABS: BASOPHILS % (AUTO) 0.4 % (0.2-1.0); EOSINOPHILS % (AUTO) 0.6 % (0.9-2.9); HEMOGLOBIN 7.8 g/dL (13.5-18.0); LYMPHOCYTES # (AUTO) 2.4 X10^3/uL (1.3-2.9); LYMPHOCYTES % (AUTO) 38.8 % (21.0-51.0); MEAN CORPUSCULAR HGB CONC 33.9 g/dL (33.0-35.0); MEAN CORPUSCULAR VOLUME 94.3 fL (80.0-100.0); MEAN PLATELET VOLUME 9.7 fL (7.4-11.0); MONOCYTES # (AUTO) 0.8 x10^3/uL (0.3-0.8); MONOCYTES % (AUTO) 12.3 % (0.0-13.0); NEUTROPHILS % (AUTO) 47.9 % (42.0-75.0); PLATELET COUNT 160 X10^3/uL (150.0-450.0); RED BLOOD COUNT 2.44 X10^6/uL (4.7-6.0); RED CELL DISTRIBUTION WIDTH 13.2 % (11.6-16.5); WHITE BLOOD COUNT 6.1 X10^3/uL (3.6-10.0)
[2023-06-04 07:00] LABS: ALANINE AMINOTRANSFERASE 14 Units/L (12-78); ALBUMIN 3.3 g/dL (3.4-5.0); ALKALINE PHOSPHATASE 72 Units/L (46-116); ASPARTATE AMINO TRANSFERASE 15 Units/L (15-37); BLOOD UREA NITROGEN 5 mg/dL (7-18); CALCIUM 7.8 mg/dL (8.5-10.1); CARBON DIOXIDE 21.8 mmol/L (21-32); CHLORIDE 109 mmol/L (98-107); COR CA(FOR HYPOALB) 8.4 mg/dL (8.5-10.1); COR NA(FOR HYPERGLY) 140 mmol/L (136-145); CREATININE 0.53 mg/dL (0.70-1.30); GLUCOSE 120 mg/dL (65-99); POTASSIUM 4.1 mmol/L (3.5-5.1); SODIUM 140 mmol/L (136-145); TOTAL PROTEIN 6.1 g/dL (6.4-8.2); eGFR NON BLACK RACES > 60 (>60)
[2023-06-04 08:06] VITALS: RESP 20; O2SAT 100
[2023-06-04] MEDS: MEGACE PO SCH (08:40)
[2023-06-04] MEDS: MAG-OX TAB PO SCH (08:41)
[2023-06-04] MEDS: FOLIC ACID TAB 1 MG PO SCH (08:41)
[2023-06-04] MEDS: LIPITOR TAB 40 MG PO SCH (08:41)
[2023-06-04] MEDS: ALBUMIN HUMAN 25%- 100 ML 100 ML IV SCH (08:41)
[2023-06-04] MEDS: PROTONIX TAB 40 MG PO SCH (08:41)
[2023-06-04] MEDS: PEPCID TAB 20 MG PO SCH (08:41)
[2023-06-04] MEDS: CLINIMIX 4.25%-5% 1,000 ML with MVI INJ (ADULT) 10 ML, POTASSIUM CHLORIDE INJ 40 MEQ VI... IV SCH ×4 (10:02)
[2023-06-04 12:51] VITALS: BP 153/84; PULSE 82; TEMP 98.4
== END 2023-06-04 13:45 | disposition home health service (06) | DRG 641 ==
LOC: MED/SURG
PROVIDERS: ADMIT Internal Medicine; ATTEND Internal Medicine
DX: E87.6 Hypokalemia; R53.1 Weakness; R74.01 Elevation of levels of liver transaminase levels; D50.8 Other iron deficiency anemias; R62.7 Adult failure to thrive; R60.0 Localized edema; R13.11 Dysphagia, oral phase; Z72.0 Tobacco use; N40.0 Benign prostatic hyperplasia without lower urinary tract symptoms; K86.0 Alcohol-induced chronic pancreatitis; R17 Unspecified jaundice; E78.2 Mixed hyperlipidemia; M19.90 Unspecified osteoarthritis, unspecified site; R91.8 Other nonspecific abnormal finding of lung field; K21.00 Gastro-esophageal reflux disease with esophagitis, without bleeding; E83.42 Hypomagnesemia; R63.4 Abnormal weight loss; E86.0 Dehydration; E88.09 Other disorders of plasma-protein metabolism, not elsewhere classified

== ENCOUNTER 2023-11-07 16:58 | Inpatient (IN) ==
[2023-11-07] MEDS ORDERED: CONSULT PHARMACY - POTASSIUM & MAGNESIUM XX SCH (18:55)
[2023-11-07] MEDS ORDERED: PERCOCET TAB 5/325 MG PO PRN (18:55)
[2023-11-07 19:24] LABS: WHITE BLOOD COUNT 7.1 X10^3/uL (3.6-10.0)
--- NOTE | 2023-11-07 19:26 | EKG ---
Test Reason : sob Blood Pressure : */* mmHG Vent. Rate : 73 BPM Atrial Rate : 73 BPM P-R Int : 120 ms QRS Dur : 52 ms QT Int : 388 ms P-R-T Axes : 63 68 78 degrees QTc Int : 427 ms Normal sinus rhythm Low voltage QRS Septal infarct (cited on or before 29-MAY-2023) Abnormal ECG When compared with ECG of 29-MAY-2023 20:56, Sinus rhythm has replaced Junctional rhythm QRS duration has decreased Nonspecific T wave abnormality now evident in Lateral leads baseline artifact present Confirmed by Toribio Silverman MD ([id number]) on 11/08/2023 7:49:49 AM Referred By: Confirmed By: Toribio Silverman MD
[2023-11-07 19:28] LABS: BASOPHILS % (AUTO) 0.5 % (0.2-1.0); EOSINOPHILS % (AUTO) 0.1 % (0.9-2.9); HEMATOCRIT 32.9 % (42.0-54.0); LYMPHOCYTES # (AUTO) 2.8 X10^3/uL (1.3-2.9); LYMPHOCYTES % (AUTO) 40.1 % (21.0-51.0); MEAN CORPUSCULAR HEMOGLOBIN 31.1 pg (27.0-34.0); MEAN CORPUSCULAR HGB CONC 33.5 g/dL (33.0-35.0); MEAN PLATELET VOLUME 9.3 fL (7.4-11.0); MONOCYTES # (AUTO) 0.5 x10^3/uL (0.3-0.8); MONOCYTES % (AUTO) 7.4 % (0.0-13.0); NEUTROPHILS # (AUTO) 3.7 x10^3/uL (2.2-4.8); NEUTROPHILS % (AUTO) 51.9 % (42.0-75.0); PLATELET COUNT 131 X10^3/uL (150.0-450.0); RED BLOOD COUNT 3.53 X10^6/uL (4.7-6.0)
[2023-11-07 19:36] LABS: ALANINE AMINOTRANSFERASE 28 Units/L (12-78); ALBUMIN 1.4 g/dL (3.4-5.0); ALKALINE PHOSPHATASE 139 Units/L (46-116); AMYLASE 81 Units/L (25-115); ASPARTATE AMINO TRANSFERASE 50 Units/L (15-37); BLOOD UREA NITROGEN 3 mg/dL (7-18); CALCIUM 6.9 mg/dL (8.5-10.1); CARBON DIOXIDE 25.8 mmol/L (21-32); CHLORIDE 112 mmol/L (98-107); CREATINE KINASE 33 Units/L (39-308); CREATININE 0.61 mg/dL (0.70-1.30); GLUCOSE 82 mg/dL (65-99); POTASSIUM 3.3 mmol/L (3.5-5.1); SODIUM 144 mmol/L (136-145); TOTAL PROTEIN 4.7 g/dL (6.4-8.2); eGFR NON BLACK RACES > 60 (>60)
[2023-11-07 19:44] LABS: LIPASE < 6 Units/L (16-77)
[2023-11-07] MEDS: ZOFRAN INJ 4 MG VIAL IVP SCH (19:53)
[2023-11-07] MEDS: K-RIDER 10 MEQ/100 ML WATER 10 MEQ/100 ML BAG IV SCH (21:30)
[2023-11-07] MEDS: PEPCID TAB 20 MG PO SCH (21:46)
[2023-11-07] MEDS: CARAFATE PO SCH (21:46)
[2023-11-07] MEDS: PROTONIX TAB 40 MG PO SCH (21:46)
[2023-11-07] MEDS: NS 1,000 ML IV 1,000 ML with MVI INJ (ADULT) 10 ML IV SCH (21:47)
[2023-11-07] MEDS: MAG-OX TAB PO SCH (21:47)
[2023-11-07] MEDS: LIPITOR TAB 40 MG PO SCH (21:47)
[2023-11-07] MEDS: FLOMAX PO SCH (21:48)
[2023-11-07 22:30] VITALS: BMI 16.7
[2023-11-07 23:02] LABS: BILIRUBIN,URINE NEGATIVE (NEGATIVE); BLOOD/HEMOGLOBIN,URINE NEGATIVE (NEGATIVE); GLUCOSE, URINE NEGATIVE (NEGATIVE); KETONES,URINE NEGATIVE (NEGATIVE); LEUKOCYTE ESTERASE ,URINE NEGATIVE (NEGATIVE); NITRITES,URINE NEGATIVE (NEGATIVE); PROTEIN,URINE NEGATIVE (NEGATIVE); UROBILINOGEN,URINE NORMAL (NORMAL)
[2023-11-07 23:10] LABS: APPEARANCE,URINE CLEAR (CLEAR); COLOR,URINE DARK YELLOW (YELLOW)
[2023-11-07] MEDS: ALBUMIN HUMAN 25%- 100 ML 100 ML IV SCH (23:52)
[2023-11-08] MEDS: MORPHINE SULFATE INJ 2 MG INJ IVP PRN (03:19)
[2023-11-08 05:51] LABS: BASOPHILS % (AUTO) 0.5 % (0.2-1.0); EOSINOPHILS % (AUTO) 0.4 % (0.9-2.9); HEMATOCRIT 26.4 % (42.0-54.0); LYMPHOCYTES # (AUTO) 1.8 X10^3/uL (1.3-2.9); LYMPHOCYTES % (AUTO) 26.6 % (21.0-51.0); MEAN CORPUSCULAR HEMOGLOBIN 30.8 pg (27.0-34.0); MEAN CORPUSCULAR HGB CONC 33.3 g/dL (33.0-35.0); MEAN CORPUSCULAR VOLUME 92.4 fL (80.0-100.0); MEAN PLATELET VOLUME 9.8 fL (7.4-11.0); MONOCYTES # (AUTO) 0.7 x10^3/uL (0.3-0.8); MONOCYTES % (AUTO) 10.4 % (0.0-13.0); NEUTROPHILS # (AUTO) 4.2 x10^3/uL (2.2-4.8); NEUTROPHILS % (AUTO) 62.1 % (42.0-75.0); PLATELET COUNT 105 X10^3/uL (150.0-450.0); RED BLOOD COUNT 2.86 X10^6/uL (4.7-6.0); RED CELL DISTRIBUTION WIDTH 15.1 % (11.6-16.5); WHITE BLOOD COUNT 6.8 X10^3/uL (3.6-10.0)
[2023-11-08 06:00] LABS: ALANINE AMINOTRANSFERASE 21 Units/L (12-78); ALBUMIN 1.7 g/dL (3.4-5.0); ALKALINE PHOSPHATASE 107 Units/L (46-116); ASPARTATE AMINO TRANSFERASE 48 Units/L (15-37); BLOOD UREA NITROGEN 2 mg/dL (7-18); CALCIUM 6.9 mg/dL (8.5-10.1); CHLORIDE 111 mmol/L (98-107); COR CA(FOR HYPOALB) 8.7 mg/dL (8.5-10.1); CREATININE 0.57 mg/dL (0.70-1.30); GLUCOSE 77 mg/dL (65-99); POTASSIUM 3.5 mmol/L (3.5-5.1); SODIUM 142 mmol/L (136-145); TOTAL PROTEIN 4.1 g/dL (6.4-8.2); eGFR NON BLACK RACES > 60 (>60)
[2023-11-08 06:03] LABS: HEMOGLOBIN 8.8 g/dL (13.5-18.0)
--- NOTE | 2023-11-08 08:04 | RAD ---
EXAM: CHEST, 1 VIEW HISTORY: sob, weakness; COMPARISON: CXR 05/30/2023. TECHNIQUE: AP view of the chest FINDINGS: The cardiac and mediastinal contours are normal in size. Lungs are hyperexpanded. There is a vague airspace opacity in the left upper lobe similar to prior study. Left costophrenic sulcus is not comp letely imaged. No visualized pleural effusion or pneumothorax. There are chronic appearing right ri b fractures. IMPRESSION: Vague left upper lobe opacity may represent a pulmonary nodule. Recommend CT chest for further evalu ation. Background of emphysema. THIS IS AN ELECTRONICALLY VERIFIED FINAL REPORT 11/08/2023 7:50 AM - Electronically signed by Camilo Gonzalez MD
[2023-11-08] MEDS ORDERED: PHARMACY CONSULT - TPN XX SCH (10:00)
[2023-11-08 10:42] LABS: PHOSPHORUS 3.2 mg/dL (2.6-4.7)
[2023-11-08] MEDS: CLINIMIX 5 %/20 % 1,000 ML with MVI INJ (ADULT) 10 ML, MAGNESIUM SULFATE 50% INJ VIAL 1 G IV SCH (11:00)
[2023-11-08] MEDS: LASIX PO SCH (11:32)
[2023-11-08] MEDS: FOLIC ACID TAB 1 MG PO SCH (11:32)
[2023-11-08] MEDS: NORVASC TAB 5 MG PO SCH (11:37)
[2023-11-08] MEDS: MEGACE PO SCH (11:37)
[2023-11-08] MEDS: MICRO K EXTEN CAP 10 MEQ PO SCH (11:37)
[2023-11-08] MEDS ORDERED: DRUG FILTER EXTENSION SET ONE (12:57)
[2023-11-08] MEDS: NovoLIN R (or HumuLIN R) SUBCUT PRN (21:32)
--- NOTE | 2023-11-08 21:49 | DR.UPDATE ---
H&P Update Prescription drug monitoring program results: PDMP reviewed and no concerns identified H&P Reviewed: Yes Any changes to H&P?: Yes Changes noted:: WAS A DIRECT ADMISSION TO THE HOSPITAL OBSERVATION STATUS FOR TREATMENT OF DEHYDRATION, GENERALIZED WEAKNESS, PHYSICAL DECONDITIONING, AND GENERALIZED SWELLING. PATIENT WAS RECENTLY DIAGNOSED WITH STAGE 1A3 LEFT UPPER LOBE ADENOCARCINOMA. HE IS STATUS POST CYBERKNIFE THERAPY TO MASS OF LUNG. ADDITIONALLY, PATIENT COMPLAINS OF OCCASIONAL LUQ PAIN. ON ADMISSION, HIS VITALS WERE: 98.3-72-20-100%-160/97. LABS WERE OBTAINED. WBC 7.1, RBC 3.53, HGB 11.0, HCT 32.9, PLT COUNT 131, SODIUM 144, POTASSIUM 3.3, CHLORIDE 112, BUN 3, CREATININE 0.61, GLUCOSE 82, CALCIUM 6.9, TOTAL BILI 0.50, AST 50, ALT 28, ALK PHOS 139, CREATINE KINASE 33, TROPONIN 4.8, BNP 83.0, TOTAL PROTEIN 4.7, ALBUMIN 1.4. URINALYSIS WAS UNREMARKABLE. A CHEST XRAY WAS OBTAINED AND REVEALED: The cardiac and mediastinal contours are normal in size. Lungs are hyperexpanded. There is a vague airspace opacity in the left upper lobe similar to prior study. Left costophrenic sulcus is not completely imaged. No visualized pleural effusion or pneumothorax. There are chronic appearing right rib fractures. EKG REVEALED NORMAL SINUS RHYTHM WITH HR 93 BPM. ON ADMISSION, HE WAS STARTED ON NORMAL SALINE AT KVO, TPN AT 63 ML/HR, ALBUMIN 25% IV DAILY, ZOFRAN 4MG IV Q8H PRN, OTBS ACHS, HUMULIN R SLIDING SCALE, MORPHINE SULFATE 2MG IV Q4H PRN. HIS HOME MEDICATIONS OF NORVASC, LIPITOR, PEPCID, FOLIC ACID, LASIX, MAG OX, MEGACE, PERCOCET, PROTONIX, MICRO K, CARAFATE, AND FLOMAX WERE RESUMED. WE WILL HAVE PHYSICAL THERAPY WORK WITH HIM. OTHERWISE, WE WILL FOLLOW-UP WITH AM LABS AND CONTINUE TO MONITOR. TIME SPENT ON CLINICAL ASSESSMENT, REVIEWING LABS AND IMAGING, DECISION MAKING, AND DOCUMENTATION GREATER THAN 75 MINUTES. Patient was examined?: Yes Vital Signs: Temp Pulse Resp BP Pulse Ox O2 Del Method 11/08/23 19:00 Room Air 11/08/23 18:49 22 11/08/23 20:00 98.9 F 69 20 140/75 100 Room Air 11/08/23 16:00 98.2 F 77 19 134/71 97 Room Air 11/08/23 18:19 20 11/08/23 12:00 98.2 F 77 19 134/71 97 Room Air 11/08/23 08:00 99.5 F 70 20 164/94 98 Room Air 11/08/23 09:57 20 11/08/23 07:00 Room Air 11/08/23 03:49 20 11/08/23 04:00 98.2 F 77 19 134/71 97 Room Air 11/08/23 03:19 20 11/08/23 00:00 98.6 F 70 21 160/79 100 Room Air 11/07/23 19:55 Room Air 11/07/23 20:00 98.3 F 72 20 160/97 100 Room Air 11/07/23 19:00 Room Air 11/07/23 18:35 Room Air
[2023-11-09] MEDS: DRUG FILTER EXTENSION SET ONE (03:13)
[2023-11-09 05:39] LABS: BASOPHILS % (AUTO) 0.4 % (0.2-1.0); EOSINOPHILS % (AUTO) 0.4 % (0.9-2.9); HEMATOCRIT 28.2 % (42.0-54.0); HEMOGLOBIN 9.4 g/dL (13.5-18.0); LYMPHOCYTES # (AUTO) 1.2 X10^3/uL (1.3-2.9); LYMPHOCYTES % (AUTO) 15.6 % (21.0-51.0); MEAN CORPUSCULAR HEMOGLOBIN 30.8 pg (27.0-34.0); MEAN CORPUSCULAR HGB CONC 33.3 g/dL (33.0-35.0); MEAN CORPUSCULAR VOLUME 92.4 fL (80.0-100.0); MEAN PLATELET VOLUME 9.6 fL (7.4-11.0); MONOCYTES # (AUTO) 0.6 x10^3/uL (0.3-0.8); MONOCYTES % (AUTO) 8.5 % (0.0-13.0); NEUTROPHILS # (AUTO) 5.6 x10^3/uL (2.2-4.8); NEUTROPHILS % (AUTO) 75.1 % (42.0-75.0); PLATELET COUNT 105 X10^3/uL (150.0-450.0); RED BLOOD COUNT 3.05 X10^6/uL (4.7-6.0); RED CELL DISTRIBUTION WIDTH 15.1 % (11.6-16.5); WHITE BLOOD COUNT 7.4 X10^3/uL (3.6-10.0)
[2023-11-09 05:54] LABS: ALANINE AMINOTRANSFERASE 19 Units/L (12-78); ALBUMIN 1.9 g/dL (3.4-5.0); ALKALINE PHOSPHATASE 100 Units/L (46-116); ASPARTATE AMINO TRANSFERASE 31 Units/L (15-37); BLOOD UREA NITROGEN 4 mg/dL (7-18); CARBON DIOXIDE 25.2 mmol/L (21-32); CHLORIDE 109 mmol/L (98-107); COR CA(FOR HYPOALB) 8.7 mg/dL (8.5-10.1); COR NA(FOR HYPERGLY) 142 mmol/L (136-145); CREATININE 0.51 mg/dL (0.70-1.30); GLUCOSE 165 mg/dL (65-99); POTASSIUM 3.1 mmol/L (3.5-5.1); SODIUM 140 mmol/L (136-145); TOTAL PROTEIN 4.3 g/dL (6.4-8.2); eGFR NON BLACK RACES > 60 (>60)
[2023-11-09 06:10] LABS: PREALBUMIN 10.9 mg/dL (18-35.7)
[2023-11-09] MEDS ORDERED: CONSULT PHARMACY - POTASSIUM & MAGNESIUM XX SCH (07:00)
[2023-11-09] MEDS: PERCOCET TAB 5/325 MG PO PRN (07:36)
[2023-11-09] MEDS ORDERED: K-RIDER 10 MEQ/100 ML WATER 10 MEQ/100 ML BAG IV SCH (09:00)
[2023-11-09] MEDS: NS + KCL 20 MEQ/L 1,000 ML IV SCH (09:50)
[2023-11-09] MEDS: MAGNESIUM SULFATE 1 GRAM/100 mL PREMIX 1 G/100 ML BAG IV SCH (09:51)
[2023-11-09] MEDS: CLINIMIX 5 %/20 % 1,000 ML with MVI INJ (ADULT) 10 ML, MAGNESIUM SULFATE 50% INJ VIAL 1 G IV SCH (09:52)
[2023-11-09] MEDS: LIPOSYN III 20% 250ML 250 ML IV SCH (20:12)
--- NOTE | 2023-11-09 21:50 | PCM.PROG ---
Progress Note - Progress Note for Day of Date of Exam: 11/09/23 - Subjective Subjective: IS CURRENTLY INPATIENT STATUS FOR TREATMENT OF DEHYDRATION, ANEMIA, ELECTROLYTE DEPLETION, GENERALIZED WEAKNESS, AND GENERALIZED SWELLING. PATIENT WAS RECENTLY DIAGNOSED WITH STAGE 1A3 LEFT UPPER LOBE ADENOCARCINOMA. HE IS STATUS POST CYBERKNIFE THERAPY TO MASS OF LUNG. HIS CURRENT MEDICAL HX INCLUDES: GERD, ESOPHAGEAL STRICTURE, CHRONIC PANCREATITIS, OSTEOARTHRITIS, BPH, HYPERLIPIDEMIA, HIP REPLACEMENT, SARAH IN LEFT LEG. TODAY, HE IS ALERT AND ORIENTED, LYING IN BED ON MORNING ROUNDS. HE CONTINUES TO COMPLAIN OF GENERALIZED WEAKNESS THIS MORNING. HE ADMITS TO SLIGHT IMPROVEMENT IN SYMPTOMS SINCE ADMISSION. ON EXAMINATION, HEART IS REGULAR IN RATE AND RHYTHM. BILATERAL LUNGS ARE NOTED WITH DIMINISHED LUNG SOUNDS. ABDOMEN IS FLAT, SOFT, AND NON-TENDER WITH NORMAL BOWEL SOUNDS NOTED IN ALL QUADRANTS. DIFFUSE UPPER AND LOWER EXTREMITY WEAKNESS NOTED. NON-PITTING EDEMA NOTED. HIS VITALS THIS MORNING ARE: 98.4-76-20-100%-104/71. LABS WERE OBTAINED. WBC 7.4, RBC 3.05, HGB 9.4, HCT 28.2, PLT COUNT 105, SODIUM 140, POTASSIUM 3.1, CHLORIDE 109, BUN 4, CRATININE 0.51, PLT COUNT 165, CALCIUM 7.0, MAGNESIUM 1.4, TOTAL BILI 1.10, AST 31, ALT 19, ALK PHOS 100, TOTAL PROTEIN 4.3, ALBUMIN 1.9. HE IS CURRENTLY RECEIVING: NORMAL SALINE AT KVO, TPN AT 63 ML/HR, ALBUMIN 25% IV DAILY, ZOFRAN 4MG IV Q8H PRN, OTBS ACHS, HUMULIN R SLIDING SCALE, MORPHINE SULFATE 2MG IV Q4H PRN. HIS HOME MEDICATIONS OF NORVASC, LIPITOR, PEPCID, FOLIC ACID, LASIX, MAG OX, MEGACE, PERCOCET, PROTONIX, MICRO K, CARAFATE, AND FLOMAX WERE RESUMED. WE WILL HAVE PHYSICAL THERAPY WORK WITH HIM. WE WILL CONTINUE WITH CURRENT PLAN OF CARE TODAY. OTHERWISE, WE WILL FOLLOW UP WITH AM LABS AND CONTINUE TO MONITOR. TIME SPENT ON CLINICAL ASSESSMENT, REVIEWING LABS AND IMAGING, DECISION MAKING, AND DOCUMENTATION GREATER THAN 45 MINUTES. - Past Medical Family Social History Past Med/Fam/Surg Hx: No changes since H&P Allergies: Allergies Penicillins Allergy (Verified 01/24/23 11:17) - Review of Systems ROS: No change since H&P - Vital Signs and I&O's Vital Signs: Vital Signs Temperature 98.2 F Temperature 97.9 F Pulse Rate [Apical] 63 Pulse Rate [Apical] 64 Respiratory Rate 20 Respiratory Rate 18 Respiratory Rate 20 Blood Pressure [Right Arm] 140/71 Blood Pressure [Right Arm] 144/87 O2 Sat by Pulse Oximetry 100 O2 Sat by Pulse Oximetry 100 Intake and Output: Intake & Output 11/07/23 11/08/23 11/09/23 11/10/23 11:59 11:59 11:59 11:59 Intake Total 432 / 432 2609 / 2609 220 / 220 Output Total 900 / 900 2550 / 2550 1999 Balance -468 / -468 59 / 59 -1780 / -1780 - Physical Exam Oriented: Normal Eyes: Normal Ear: Normal Nose: Normal Throat: Normal Respiratory: Diminished Cardiovascular: Normal : Normal Auscultation: Bowel Sounds: Normal Palpation: Normal Tenderness: Normal Skin: Normal Musculoskeletal: Normal Psychiatric: Normal Mood Description: Calm Affect: Normal Speech Pattern: Clear, Appropriate - Laboratory and Diagnostics Result Diagrams: 11/09/23 05:02 11/09/23 05:02 Labs: 11/07/23 22:50 Urine,Clean Catch Urine Culture - Preliminary Laboratory WBC 7.4 X10^3/uL (3.6-10.0) 11/09/23 05:02 RBC 3.05 X10^6/uL (4.7-6.0) L 11/09/23 05:02 Hgb 9.4 g/dL (13.5-18.0) L 11/09/23 05:02 Hct 28.2 % (42.0-54.0) L 11/09/23 05:02 MCV 92.4 fL (80.0-100.0) 11/09/23 05:02 MCH 30.8 pg (27.0-34.0) 11/09/23 05:02 MCHC 33.3 g/dL (33.0-35.0) 11/09/23 05:02 RDW 15.1 % (11.6-16.5) 11/09/23 05:02 Plt Count 105 X10^3/uL (150.0-450.0) L 11/09/23 05:02 MPV 9.6 fL (7.4-11.0) 11/09/23 05:02 Neut % (Auto) 75.1 % (42.0-75.0) H 11/09/23 05:02 Lymph % (Auto) 15.6 % (21.0-51.0) L 11/09/23 05:02 [place] % (Auto) 8.5 % (0.0-13.0) 11/09/23 05:02 Eos % (Auto) 0.4 % (0.9-2.9) L 11/09/23 05:02 Baso % (Auto) 0.4 % (0.2-1.0) 11/09/23 05:02 Neut # (Auto) 5.6 x10^3/uL (2.2-4.8) H 11/09/23 05:02 Lymph # (Auto) 1.2 X10^3/uL (1.3-2.9) L 11/09/23 05:02 [place] # (Auto) 0.6 x10^3/uL (0.3-0.8) 11/09/23 05:02 Eos # (Auto) 0.0 x10^3/uL (0.0-0.2) 11/09/23 05:02 Baso # (Auto) 0.0 X10^3/uL (0.0-0.1) 11/09/23 05:02 Absolute Nucleated RBC 0.0 /100WBC 11/09/23 05:02 Sodium 140 mmol/L (136-145) 11/09/23 05:02 Corrected Sodium 142 mmol/L (136-145) 11/09/23 05:02 Potassium 3.1 mmol/L (3.5-5.1) L 11/09/23 05:02 Chloride 109 mmol/L (98-107) H 11/09/23 05:02 Carbon Dioxide 25.2 mmol/L (21-32) 11/09/23 05:02 BUN 4 mg/dL (7-18) L 11/09/23 05:02 Creatinine 0.51 mg/dL (0.70-1.30) L 11/09/23 05:02 Est GFR (MDRD) Af Amer > 60 (>60) 11/09/23 05:02 Est GFR (MDRD) Non-Af > 60 (>60) 11/09/23 05:02 Glucose 165 mg/dL (65-99) H 11/09/23 05:02 POC Glucose (mg/dL) 225 mg/dL (65-99) H 11/09/23 17:32 Calcium 7.0 mg/dL (8.5-10.1) L 11/09/23 05:02 Corrected Calcium 8.7 mg/dL (8.5-10.1) 11/09/23 05:02 Phosphorus 3.2 mg/dL (2.6-4.7) 11/08/23 05:20 Magnesium 1.4 mg/dL (2.0-2.9) L 11/09/23 05:02 Total Bilirubin 1.10 mg/dL (0.2-1.0) H 11/09/23 05:02 AST 31 Units/L (15-37) 11/09/23 05:02 ALT 19 Units/L (12-78) 11/09/23 05:02 Alkaline Phosphatase 100 Units/L (46-116) 11/09/23 05:02 Creatine Kinase 33 Units/L (39-308) L 11/07/23 19:09 Troponin I High Sens 4.8 ng/L (4.0-60.0) 11/07/23 19:09 B-Natriuretic Peptide 83.0 pg/mL (0-79) H 11/07/23 19:09 Total Protein 4.3 g/dL (6.4-8.2) L 11/09/23 05:02 Albumin 1.9 g/dL (3.4-5.0) L 11/09/23 05:02 Globulin 2.4 g/dL (2.5-4.5) L 11/09/23 05:02 Albumin/Globulin Ratio 0.8 Ratio (1.1-2.1) L 11/09/23 05:02 Prealbumin 10.9 mg/dL (18-35.7) L 11/09/23 05:02 Triglycerides 25 mg/dL (0-150) 11/08/23 05:20 Amylase 81 Units/L (25-115) 11/07/23 19:09 Lipase < 6 Units/L (16-77) L 11/07/23 19:09 Specimen Type Clean catch urine 11/07/23 22:50 Urine Color Dark yellow (YELLOW) 11/07/23 22:50 Urine Appearance Clear (CLEAR) 11/07/23 22:50 Urine pH 6.0 (5.0 - 8.0) 11/07/23 22:50 Ur Specific [place] 1.010 (1.000-1.030) 11/07/23 22:50 Urine Protein Negative (NEGATIVE) 11/07/23 22:50 Urine Glucose (UA) Negative (NEGATIVE) 11/07/23 22:50 Urine Ketones Negative (NEGATIVE) 11/07/23 22:50 Urine Blood Negative (NEGATIVE) 11/07/23 22:50 Urine Nitrite Negative (NEGATIVE) 11/07/23 22:50 Urine Bilirubin Negative (NEGATIVE) 11/07/23 22:50 Urine Urobilinogen Normal (NORMAL) 11/07/23 22:50 Ur Leukocyte Esterase Negative (NEGATIVE) 11/07/23 22:50 - Plan (1) Dehydration Status: Acute Plan: NORMAL SALINE AT KVO, TPN AT 63 ML/HR, ALBUMIN 25% IV DAILY, ZOFRAN 4MG IV Q8H PRN, OTBS ACHS, HUMULIN R SLIDING SCALE, MORPHINE SULFATE 2MG IV Q4H PRN. HIS HOME MEDICATIONS OF NORVASC, LIPITOR, PEPCID, FOLIC ACID, LASIX, MAG OX, MEGACE, PERCOCET, PROTONIX, MICRO K, CARAFATE, AND FLOMAX WERE RESUMED. (2) Generalized weakness Status: Acute (3) Hypokalemia Status: Acute (4) Hypomagnesemia Status: Acute (5) Anemia Status: Chronic Qualifiers: Anemia type: iron deficiency Iron deficiency anemia type: unspecified iron deficiency Qualified Code(s): D50.9 - Iron deficiency anemia, unspecified (6) BPH (benign prostatic hyperplasia) Status: Chronic Qualifiers: Lower urinary tract symptom presence: symptoms absent (7) Gastroesophageal reflux disease Status: Chronic Qualifiers: Esophagitis presence: with esophagitis Esophagitis bleeding: unspecified whether hemorrhage Qualified Code(s): K21.00 - Gastro-esophageal reflux disease with esophagitis, without bleeding (8) Hyperlipidemia Status: Chronic Qualifiers: Hyperlipidemia type: mixed hyperlipidemia (9) Adenocarcinoma of lung Status: Acute Qualifiers: Laterality: left Qualified Code(s): C34.92 - Malignant neoplasm of unspecified part of left bronchus or lung
[2023-11-10 05:50] LABS: BASOPHILS % (AUTO) 0.5 % (0.2-1.0); EOSINOPHILS % (AUTO) 0.5 % (0.9-2.9); HEMATOCRIT 26.5 % (42.0-54.0); HEMOGLOBIN 8.9 g/dL (13.5-18.0); LYMPHOCYTES # (AUTO) 1.4 X10^3/uL (1.3-2.9); MEAN CORPUSCULAR HGB CONC 33.5 g/dL (33.0-35.0); MEAN CORPUSCULAR VOLUME 92.3 fL (80.0-100.0); MEAN PLATELET VOLUME 9.8 fL (7.4-11.0); MONOCYTES # (AUTO) 0.6 x10^3/uL (0.3-0.8); PLATELET COUNT 98 X10^3/uL (150.0-450.0); RED BLOOD COUNT 2.87 X10^6/uL (4.7-6.0); RED CELL DISTRIBUTION WIDTH 15.2 % (11.6-16.5); WHITE BLOOD COUNT 7.1 X10^3/uL (3.6-10.0)
[2023-11-10 06:03] LABS: ALANINE AMINOTRANSFERASE 15 Units/L (12-78); ALKALINE PHOSPHATASE 90 Units/L (46-116); ASPARTATE AMINO TRANSFERASE 22 Units/L (15-37); BLOOD UREA NITROGEN 4 mg/dL (7-18); CALCIUM 6.9 mg/dL (8.5-10.1); CARBON DIOXIDE 22.6 mmol/L (21-32); CHLORIDE 112 mmol/L (98-107); COR CA(FOR HYPOALB) 8.5 mg/dL (8.5-10.1); COR NA(FOR HYPERGLY) 146 mmol/L (136-145); CREATININE 0.51 mg/dL (0.70-1.30); GLUCOSE 164 mg/dL (65-99); MAGNESIUM 1.7 mg/dL (2.0-2.9); SODIUM 144 mmol/L (136-145); TOTAL PROTEIN 4.6 g/dL (6.4-8.2); eGFR NON BLACK RACES > 60 (>60)
[2023-11-10 06:14] LABS: POTASSIUM 2.7 mmol/L (3.5-5.1)
[2023-11-10] MEDS ORDERED: CONSULT PHARMACY - POTASSIUM & MAGNESIUM XX SCH (07:00)
[2023-11-10] MEDS: MAG-OX TAB PO SCH (09:28)
[2023-11-10] MEDS ORDERED: DRUG FILTER EXTENSION SET ONE (11:24)
[2023-11-10] MEDS: K-DUR TAB 20 MEQ PO SCH (11:30)
[2023-11-10] MEDS: CLINIMIX 5 %/20 % 1,000 ML with MVI INJ (ADULT) 10 ML, MAGNESIUM SULFATE 50% INJ VIAL 1... IV SCH (11:40)
--- NOTE | 2023-11-10 18:18 | PCM.PROG ---
Progress Note - Progress Note for Day of Date of Exam: 11/10/23 - Subjective Subjective: IS CURRENTLY INPATIENT STATUS FOR TREATMENT OF DEHYDRATION, ANEMIA, ELECTROLYTE DEPLETION, GENERALIZED WEAKNESS, AND GENERALIZED SWELLING. PATIENT WAS RECENTLY DIAGNOSED WITH STAGE 1A3 LEFT UPPER LOBE ADENOCARCINOMA. HE IS STATUS POST CYBERKNIFE THERAPY TO MASS OF LUNG. HIS CURRENT MEDICAL HX INCLUDES: GERD, ESOPHAGEAL STRICTURE, CHRONIC PANCREATITIS, OSTEOARTHRITIS, BPH, HYPERLIPIDEMIA, HIP REPLACEMENT, SARAH IN LEFT LEG. TODAY, HE IS ALERT AND ORIENTED, LYING IN BED ON MORNING ROUNDS. HE CONTINUES TO COMPLAIN OF GENERALIZED WEAKNESS THIS MORNING. HE ADMITS TO SLIGHT IMPROVEMENT IN SYMPTOMS SINCE ADMISSION. ON EXAMINATION, HEART IS REGULAR IN RATE AND RHYTHM. BILATERAL LUNGS ARE NOTED WITH DIMINISHED LUNG SOUNDS. ABDOMEN IS FLAT, SOFT, AND NON-TENDER WITH NORMAL BOWEL SOUNDS NOTED IN ALL QUADRANTS. DIFFUSE UPPER AND LOWER EXTREMITY WEAKNESS NOTED. NON-PITTING EDEMA NOTED. HIS VITALS THIS MORNING ARE: 98.8-90-20-99%-123/76. LABS WERE OBTAINED. WBC 7.1, RBC 2.87, HGB 8.9, HCT 26.5, PLT COUNT 98, SODIUM 144, POTASSIUM 2.7, CHLORIDE 112, BUN 4, CREATININE 0.51, GLUCOSE 164, CALCIUM 6.9, MAGNESIUM 1.7, AST 22, ALT 15, ALK PHOS 90, TOTAL PROTEIN 4.6, ALBUMIN 2.0. HE IS CURRENTLY RECEIVING: NORMAL SALINE AT KVO, TPN AT 63 ML/HR, ALBUMIN 25% IV DAILY, ZOFRAN 4MG IV Q8H PRN, OTBS ACHS, HUMULIN R SLIDING SCALE, MORPHINE SULFATE 2MG IV Q4H PRN. HIS HOME MEDICATIONS OF NORVASC, LIPITOR, PEPCID, FOLIC ACID, LASIX, MAG OX, MEGACE, PERCOCET, PROTONIX, MICRO K, CARAFATE, AND FLOMAX WERE RESUMED. WE WILL HAVE PHYSICAL THERAPY WORK WITH HIM. WE WILL CONTINUE WITH CURRENT PLAN OF CARE TODAY. OTHERWISE, WE WILL FOLLOW UP WITH AM LABS AND CONTINUE TO MONITOR. TIME SPENT ON CLINICAL ASSESSMENT, REVIEWING LABS AND IMAGING, DECISION MAKING, AND DOCUMENTATION GREATER THAN 45 MINUTES. - Past Medical Family Social History Past Med/Fam/Surg Hx: No changes since H&P Allergies: Allergies Penicillins Allergy (Verified 01/24/23 11:17) - Review of Systems ROS: No change since H&P - Vital Signs and I&O's Vital Signs: Vital Signs Temperature 98.6 F Temperature 99.0 F Pulse Rate [Apical] 63 Pulse Rate [Apical] 62 Respiratory Rate 17 Respiratory Rate 20 Respiratory Rate 20 Blood Pressure [Right Arm] 149/83 Blood Pressure [Right Arm] 142/85 O2 Sat by Pulse Oximetry 100 O2 Sat by Pulse Oximetry 100 Intake and Output: Intake & Output 11/08/23 11/09/23 11/10/23 11/11/23 11:59 11:59 11:59 11:59 Intake Total 432 / 432 2609 / 2609 3355 / 3355 840 / 840 Output Total 900 / 900 2550 / 2550 3500 / 3500 1750 / 1750 Balance -468 / -468 59 / 59 -145 / -145 -910 / -910 - Physical Exam Oriented: Normal Eyes: Normal Ear: Normal Nose: Normal Throat: Normal Respiratory: Diminished Cardiovascular: Normal : Normal Auscultation: Bowel Sounds: Normal Palpation: Normal Tenderness: Normal Skin: Normal Musculoskeletal: Normal Psychiatric: Normal Mood Description: Calm Affect: Normal Speech Pattern: Clear, Appropriate - Laboratory and Diagnostics Result Diagrams: 11/10/23 05:25 11/10/23 05:25 Labs: 11/07/23 22:50 Urine,Clean Catch Urine Culture - Final Laboratory WBC 7.1 X10^3/uL (3.6-10.0) 11/10/23 05:25 RBC 2.87 X10^6/uL (4.7-6.0) L 11/10/23 05:25 Hgb 8.9 g/dL (13.5-18.0) L 11/10/23 05:25 Hct 26.5 % (42.0-54.0) L 11/10/23 05:25 MCV 92.3 fL (80.0-100.0) 11/10/23 05:25 MCH 31.0 pg (27.0-34.0) 11/10/23 05:25 MCHC 33.5 g/dL (33.0-35.0) 11/10/23 05:25 RDW 15.2 % (11.6-16.5) 11/10/23 05:25 Plt Count 98 X10^3/uL (150.0-450.0) L 11/10/23 05:25 MPV 9.8 fL (7.4-11.0) 11/10/23 05:25 Neut % (Auto) 71.0 % (42.0-75.0) 11/10/23 05:25 Lymph % (Auto) 20.0 % (21.0-51.0) L 11/10/23 05:25 [place] % (Auto) 8.0 % (0.0-13.0) 11/10/23 05:25 Eos % (Auto) 0.5 % (0.9-2.9) L 11/10/23 05:25 Baso % (Auto) 0.5 % (0.2-1.0) 11/10/23 05:25 Neut # (Auto) 5.0 x10^3/uL (2.2-4.8) H 11/10/23 05:25 Lymph # (Auto) 1.4 X10^3/uL (1.3-2.9) 11/10/23 05:25 [place] # (Auto) 0.6 x10^3/uL (0.3-0.8) 11/10/23 05:25 Eos # (Auto) 0.0 x10^3/uL (0.0-0.2) 11/10/23 05:25 Baso # (Auto) 0.0 X10^3/uL (0.0-0.1) 11/10/23 05:25 Absolute Nucleated RBC 0.1 /100WBC 11/10/23 05:25 Sodium 144 mmol/L (136-145) 11/10/23 05:25 Corrected Sodium 146 mmol/L (136-145) H 11/10/23 05:25 Potassium 2.7 mmol/L (3.5-5.1) L* 11/10/23 05:25 Chloride 112 mmol/L (98-107) H 11/10/23 05:25 Carbon Dioxide 22.6 mmol/L (21-32) 11/10/23 05:25 BUN 4 mg/dL (7-18) L 11/10/23 05:25 Creatinine 0.51 mg/dL (0.70-1.30) L 11/10/23 05:25 Est GFR (MDRD) Af Amer > 60 (>60) 11/10/23 05:25 Est GFR (MDRD) Non-Af > 60 (>60) 11/10/23 05:25 Glucose 164 mg/dL (65-99) H 11/10/23 05:25 POC Glucose (mg/dL) 196 mg/dL (65-99) H 11/10/23 16:22 Calcium 6.9 mg/dL (8.5-10.1) L 11/10/23 05:25 Corrected Calcium 8.5 mg/dL (8.5-10.1) 11/10/23 05:25 Phosphorus 3.2 mg/dL (2.6-4.7) 11/08/23 05:20 Magnesium 1.7 mg/dL (2.0-2.9) L 11/10/23 05:25 Total Bilirubin 0.40 mg/dL (0.2-1.0) 11/10/23 05:25 AST 22 Units/L (15-37) 11/10/23 05:25 ALT 15 Units/L (12-78) 11/10/23 05:25 Alkaline Phosphatase 90 Units/L (46-116) 11/10/23 05:25 Creatine Kinase 33 Units/L (39-308) L 11/07/23 19:09 Troponin I High Sens 4.8 ng/L (4.0-60.0) 11/07/23 19:09 B-Natriuretic Peptide 83.0 pg/mL (0-79) H 11/07/23 19:09 Total Protein 4.6 g/dL (6.4-8.2) L 11/10/23 05:25 Albumin 2.0 g/dL (3.4-5.0) L 11/10/23 05:25 Globulin 2.6 g/dL (2.5-4.5) 11/10/23 05:25 Albumin/Globulin Ratio 0.8 Ratio (1.1-2.1) L 11/10/23 05:25 Prealbumin 10.9 mg/dL (18-35.7) L 11/09/23 05:02 Triglycerides 25 mg/dL (0-150) 11/08/23 05:20 Amylase 81 Units/L (25-115) 11/07/23 19:09 Lipase < 6 Units/L (16-77) L 11/07/23 19:09 Specimen Type Clean catch urine 11/07/23 22:50 Urine Color Dark yellow (YELLOW) 11/07/23 22:50 Urine Appearance Clear (CLEAR) 11/07/23 22:50 Urine pH 6.0 (5.0 - 8.0) 11/07/23 22:50 Ur Specific [place] 1.010 (1.000-1.030) 11/07/23 22:50 Urine Protein Negative (NEGATIVE) 11/07/23 22:50 Urine Glucose (UA) Negative (NEGATIVE) 11/07/23 22:50 Urine Ketones Negative (NEGATIVE) 11/07/23 22:50 Urine Blood Negative (NEGATIVE) 11/07/23 22:50 Urine Nitrite Negative (NEGATIVE) 11/07/23 22:50 Urine Bilirubin Negative (NEGATIVE) 11/07/23 22:50 Urine Urobilinogen Normal (NORMAL) 11/07/23 22:50 Ur Leukocyte Esterase Negative (NEGATIVE) 11/07/23 22:50 - Plan (1) Dehydration Status: Acute Plan: NORMAL SALINE AT KVO, TPN AT 63 ML/HR, ALBUMIN 25% IV DAILY, ZOFRAN 4MG IV Q8H PRN, OTBS ACHS, HUMULIN R SLIDING SCALE, MORPHINE SULFATE 2MG IV Q4H PRN. HIS HOME MEDICATIONS OF NORVASC, LIPITOR, PEPCID, FOLIC ACID, LASIX, MAG OX, MEGACE, PERCOCET, PROTONIX, MICRO K, CARAFATE, AND FLOMAX WERE RESUMED. (2) Generalized weakness Status: Acute (3) Hypokalemia Status: Acute (4) Hypomagnesemia Status: Acute (5) Anemia Status: Chronic Qualifiers: Anemia type: iron deficiency Iron deficiency anemia type: unspecified iron deficiency Qualified Code(s): D50.9 - Iron deficiency anemia, unspecified (6) BPH (benign prostatic hyperplasia) Status: Chronic Qualifiers: Lower urinary tract symptom presence: symptoms absent (7) Gastroesophageal reflux disease Status: Chronic Qualifiers: Esophagitis presence: with esophagitis Esophagitis bleeding: unspecified whether hemorrhage Qualified Code(s): K21.00 - Gastro-esophageal reflux disease with esophagitis, without bleeding (8) Hyperlipidemia Status: Chronic Qualifiers: Hyperlipidemia type: mixed hyperlipidemia (9) Adenocarcinoma of lung Status: Acute Qualifiers: Laterality: left Qualified Code(s): C34.92 - Malignant neoplasm of unspecified part of left bronchus or lung
[2023-11-11] MEDS: DEXTROSE 10% 1,000 ML IV PRN (04:19)
[2023-11-11 05:38] LABS: BASOPHILS % (AUTO) 0.4 % (0.2-1.0); EOSINOPHILS # (AUTO) 0.1 x10^3/uL (0.0-0.2); HEMATOCRIT 26.8 % (42.0-54.0); LYMPHOCYTES # (AUTO) 1.6 X10^3/uL (1.3-2.9); LYMPHOCYTES % (AUTO) 22.6 % (21.0-51.0); MEAN CORPUSCULAR HGB CONC 33.6 g/dL (33.0-35.0); MEAN CORPUSCULAR VOLUME 92.3 fL (80.0-100.0); MEAN PLATELET VOLUME 10.4 fL (7.4-11.0); MONOCYTES # (AUTO) 0.5 x10^3/uL (0.3-0.8); MONOCYTES % (AUTO) 7.5 % (0.0-13.0); NEUTROPHILS # (AUTO) 4.9 x10^3/uL (2.2-4.8); NEUTROPHILS % (AUTO) 68.5 % (42.0-75.0); PLATELET COUNT 99 X10^3/uL (150.0-450.0); RED CELL DISTRIBUTION WIDTH 15.3 % (11.6-16.5); WHITE BLOOD COUNT 7.1 X10^3/uL (3.6-10.0)
[2023-11-11 05:49] LABS: ALANINE AMINOTRANSFERASE 17 Units/L (12-78); ALBUMIN 2.4 g/dL (3.4-5.0); ALKALINE PHOSPHATASE 83 Units/L (46-116); ASPARTATE AMINO TRANSFERASE 21 Units/L (15-37); BLOOD UREA NITROGEN 5 mg/dL (7-18); CALCIUM 7.3 mg/dL (8.5-10.1); CHLORIDE 110 mmol/L (98-107); COR CA(FOR HYPOALB) 8.6 mg/dL (8.5-10.1); COR NA(FOR HYPERGLY) 145 mmol/L (136-145); CREATININE 0.46 mg/dL (0.70-1.30); GLUCOSE 168 mg/dL (65-99); SODIUM 143 mmol/L (136-145); eGFR NON BLACK RACES > 60 (>60)
[2023-11-11 06:02] LABS: MAGNESIUM 1.5 mg/dL (2.0-2.9)
[2023-11-11 06:03] LABS: PHOSPHORUS 0.3 mg/dL (2.6-4.7)
[2023-11-11] MEDS ORDERED: CONSULT PHARMACY - POTASSIUM & MAGNESIUM XX SCH (07:00)
--- NOTE | 2023-11-11 07:31 | US ---
EXAM:LIVERHISTORY:JaundiceTECHNIQUE: .br obtained.COMPARISON:NoneFINDINGS:Liver is normal in size and configuration and without cyst, mass, or biliary ductal dilatation. Echogenicity of the hepatic parenchyma is slightly increased suggestive of possible mild fatty infiltration. Portal blood flow was hepatopetal. Hepatic artery was patent. Hepatic venous blood flow was hepatofugal. No gallstones are present within the gallbladder. Gallbladder wall thickness was normal. Common duct measured 3.6 mm.IMPRESSION:Possible mild hepatic steatosisNo evidence for intra or extrahepatic biliary ductal dilatationTHIS IS AN ELECTRONICALLY VERIFIED FINAL REPORT11/11/2023 7:27 AM - Electronically signed by Jean Rodrigez MD
[2023-11-11] MEDS: MAG-OX TAB PO SCH (09:17)
--- NOTE | 2023-11-11 10:21 | PCM.PROG ---
Progress Note - Progress Note for Day of Date of Exam: 11/11/23 - Subjective Subjective: IS CURRENTLY INPATIENT STATUS FOR TREATMENT OF DEHYDRATION, ANEMIA, ELECTROLYTE DEPLETION, GENERALIZED WEAKNESS, AND GENERALIZED SWELLING. PATIENT WAS RECENTLY DIAGNOSED WITH STAGE 1A3 LEFT UPPER LOBE ADENOCARCINOMA. HE IS STATUS POST CYBERKNIFE THERAPY TO MASS OF LUNG. HIS CURRENT MEDICAL HX INCLUDES: GERD, ESOPHAGEAL STRICTURE, CHRONIC PANCREATITIS, OSTEOARTHRITIS, BPH, HYPERLIPIDEMIA, HIP REPLACEMENT, SARAH IN LEFT LEG. TODAY, HE IS ALERT AND ORIENTED, LYING IN BED ON MORNING ROUNDS. HE CONTINUES TO COMPLAIN OF GENERALIZED WEAKNESS THIS MORNING. ON EXAMINATION, HEART IS REGULAR IN RATE AND RHYTHM. BILATERAL LUNGS ARE NOTED WITH DIMINISHED LUNG SOUNDS. ABDOMEN IS FLAT, SOFT, AND NON-TENDER WITH NORMAL BOWEL SOUNDS NOTED IN ALL QUADRANTS. DIFFUSE UPPER AND LOWER EXTREMITY WEAKNESS NOTED. NON-PITTING EDEMA NOTED. HIS VITALS THIS MORNING ARE: 98.5-76-18-100%-140/82. LABS WERE OBTAINED. WBC 7.1, RBC 2.90, HGB 9.0, HCT 26.8, PLT COUNT 99, SODIUM 143, POTASSIUM 3.0, CHLORIDE 110, BUN 5, CREATININE 0.46, GLUCOSE 168, CALCIUM 7.3, PHOSPHORUS 0.3, MAGNESIUM 1.5, TOTAL BILI 0.40, AST 21, ALT 17, ALK PHOS 83, TOTAL PROTEIN 5.0, ALBUMIN 2.4. HE IS CURRENTLY RECEIVING: NORMAL SALINE AT KVO, TPN AT 63 ML/HR, ALBUMIN 25% IV DAILY, ZOFRAN 4MG IV Q8H PRN, OTBS ACHS, HUMULIN R SLIDING SCALE, MORPHINE SULFATE 2MG IV Q4H PRN. HIS HOME MEDICATIONS OF NORVASC, LIPITOR, PEPCID, FOLIC ACID, LASIX, MAG OX, MEGACE, PERCOCET, PROTONIX, MICRO K, CARAFATE, AND FLOMAX WERE RESUMED. WE WILL HAVE PHYSICAL THERAPY WORK WITH HIM. WE WILL CONTINUE WITH CURRENT PLAN OF CARE TODAY. OTHERWISE, WE WILL FOLLOW UP WITH AM LABS AND CONTINUE TO MONITOR. TIME SPENT ON CLINICAL ASSESSMENT, REVIEWI NG LABS AND IMAGING, DECISION MAKING, AND DOCUMENTATION GREATER THAN 45 MINUTES. - Past Medical Family Social History Past Med/Fam/Surg Hx: No changes since H&P Allergies: Allergies Penicillins Allergy (Verified 01/24/23 11:17) - Review of Systems ROS: No change since H&P - Vital Signs and I&O's Vital Signs: Vital Signs Temperature 98.5 F Pulse Rate [Apical] 76 Respiratory Rate 18 Respiratory Rate 18 Respiratory Rate 18 Respiratory Rate 18 Blood Pressure [Right Arm] 140/82 O2 Sat by Pulse Oximetry 100 Intake and Output: Intake & Output 11/08/23 11/09/23 11/10/23 11/11/23 11:59 11:59 11:59 11:59 Intake Total 432 / 432 2609 / 2609 3355 / 3355 3678 / 3678 Output Total 900 / 900 2550 / 2550 3500 / 3500 3150 / 3150 Balance -468 / -468 59 / 59 -145 / -145 528 / 528 - Physical Exam Oriented: Normal Eyes: Normal Ear: Normal Nose: Normal Throat: Normal Respiratory: Diminished Cardiovascular: Normal : Normal Auscultation: Bowel Sounds: Normal Tenderness: Normal Skin: Normal Musculoskeletal: Normal Psychiatric: Normal Mood Description: Calm Affect: Normal Speech Pattern: Clear, Appropriate - Laboratory and Diagnostics Result Diagrams: 11/11/23 05:04 11/11/23 05:04 Labs: 11/07/23 22:50 Urine,Clean Catch Urine Culture - Final Laboratory WBC 7.1 X10^3/uL (3.6-10.0) 11/11/23 05:04 RBC 2.90 X10^6/uL (4.7-6.0) L 11/11/23 05:04 Hgb 9.0 g/dL (13.5-18.0) L 11/11/23 05:04 Hct 26.8 % (42.0-54.0) L 11/11/23 05:04 MCV 92.3 fL (80.0-100.0) 11/11/23 05:04 MCH 31.0 pg (27.0-34.0) 11/11/23 05:04 MCHC 33.6 g/dL (33.0-35.0) 11/11/23 05:04 RDW 15.3 % (11.6-16.5) 11/11/23 05:04 Plt Count 99 X10^3/uL (150.0-450.0) L 11/11/23 05:04 MPV 10.4 fL (7.4-11.0) 11/11/23 05:04 Neut % (Auto) 68.5 % (42.0-75.0) 11/11/23 05:04 Lymph % (Auto) 22.6 % (21.0-51.0) 11/11/23 05:04 [place] % (Auto) 7.5 % (0.0-13.0) 11/11/23 05:04 Eos % (Auto) 1.0 % (0.9-2.9) 11/11/23 05:04 Baso % (Auto) 0.4 % (0.2-1.0) 11/11/23 05:04 Neut # (Auto) 4.9 x10^3/uL (2.2-4.8) H 11/11/23 05:04 Lymph # (Auto) 1.6 X10^3/uL (1.3-2.9) 11/11/23 05:04 [place] # (Auto) 0.5 x10^3/uL (0.3-0.8) 11/11/23 05:04 Eos # (Auto) 0.1 x10^3/uL (0.0-0.2) 11/11/23 05:04 Baso # (Auto) 0.0 X10^3/uL (0.0-0.1) 11/11/23 05:04 Absolute Nucleated RBC 0.0 /100WBC 11/11/23 05:04 Sodium 143 mmol/L (136-145) 11/11/23 05:04 Corrected Sodium 145 mmol/L (136-145) 11/11/23 05:04 Potassium 3.0 mmol/L (3.5-5.1) L 11/11/23 05:04 Chloride 110 mmol/L (98-107) H 11/11/23 05:04 Carbon Dioxide 22.0 mmol/L (21-32) 11/11/23 05:04 BUN 5 mg/dL (7-18) L 11/11/23 05:04 Creatinine 0.46 mg/dL (0.70-1.30) L 11/11/23 05:04 Est GFR (MDRD) Af Amer > 60 (>60) 11/11/23 05:04 Est GFR (MDRD) Non-Af > 60 (>60) 11/11/23 05:04 Glucose 168 mg/dL (65-99) H 11/11/23 05:04 POC Glucose (mg/dL) 139 mg/dL (65-99) H 11/11/23 05:28 Calcium 7.3 mg/dL (8.5-10.1) L 11/11/23 05:04 Corrected Calcium 8.6 mg/dL (8.5-10.1) 11/11/23 05:04 Phosphorus 0.3 mg/dL (2.6-4.7) L 11/11/23 05:04 Magnesium 1.5 mg/dL (2.0-2.9) L 11/11/23 05:04 Total Bilirubin 0.40 mg/dL (0.2-1.0) 11/11/23 05:04 AST 21 Units/L (15-37) 11/11/23 05:04 ALT 17 Units/L (12-78) 11/11/23 05:04 Alkaline Phosphatase 83 Units/L (46-116) 11/11/23 05:04 Creatine Kinase 33 Units/L (39-308) L 11/07/23 19:09 Troponin I High Sens 4.8 ng/L (4.0-60.0) 11/07/23 19:09 B-Natriuretic Peptide 83.0 pg/mL (0-79) H 11/07/23 19:09 Total Protein 5.0 g/dL (6.4-8.2) L 11/11/23 05:04 Albumin 2.4 g/dL (3.4-5.0) L 11/11/23 05:04 Globulin 2.6 g/dL (2.5-4.5) 11/11/23 05:04 Albumin/Globulin Ratio 0.9 Ratio (1.1-2.1) L 11/11/23 05:04 Prealbumin 10.9 mg/dL (18-35.7) L 11/09/23 05:02 Triglycerides 85 mg/dL (0-150) 11/11/23 05:04 Amylase 81 Units/L (25-115) 11/07/23 19:09 Lipase < 6 Units/L (16-77) L 11/07/23 19:09 Specimen Type Clean catch urine 11/07/23 22:50 Urine Color Dark yellow (YELLOW) 11/07/23 22:50 Urine Appearance Clear (CLEAR) 11/07/23 22:50 Urine pH 6.0 (5.0 - 8.0) 11/07/23 22:50 Ur Specific [place] 1.010 (1.000-1.030) 11/07/23 22:50 Urine Protein Negative (NEGATIVE) 11/07/23 22:50 Urine Glucose (UA) Negative (NEGATIVE) 11/07/23 22:50 Urine Ketones Negative (NEGATIVE) 11/07/23 22:50 Urine Blood Negative (NEGATIVE) 11/07/23 22:50 Urine Nitrite Negative (NEGATIVE) 11/07/23 22:50 Urine Bilirubin Negative (NEGATIVE) 11/07/23 22:50 Urine Urobilinogen Normal (NORMAL) 11/07/23 22:50 Ur Leukocyte Esterase Negative (NEGATIVE) 11/07/23 22:50 - Plan (1) Dehydration Status: Acute Plan: NORMAL SALINE AT KVO, TPN AT 63 ML/HR, ALBUMIN 25% IV DAILY, ZOFRAN 4MG IV Q8H PRN, OTBS ACHS, HUMULIN R SLIDING SCALE, MORPHINE SULFATE 2MG IV Q4H PRN. HIS HOME MEDICATIONS OF NORVASC, LIPITOR, PEPCID, FOLIC ACID, LASIX, MAG OX, MEGACE, PERCOCET, PROTONIX, MICRO K, CARAFATE, AND FLOMAX WERE RESUMED. (2) Generalized weakness Status: Acute (3) Hypokalemia Status: Acute (4) Hypomagnesemia Status: Acute (5) Anemia Status: Chronic Qualifiers: Anemia type: iron deficiency Iron deficiency anemia type: unspecified iron deficiency Qualified Code(s): D50.9 - Iron deficiency anemia, unspecified (6) BPH (benign prostatic hyperplasia) Status: Chronic Qualifiers: Lower urinary tract symptom presence: symptoms absent (7) Gastroesophageal reflux disease Status: Chronic Qualifiers: Esophagitis presence: with esophagitis Esophagitis bleeding: unspecified whether hemorrhage Qualified Code(s): K21.00 - Gastro-esophageal reflux disease with esophagitis, without bleeding (8) Hyperlipidemia Status: Chronic Qualifiers: Hyperlipidemia type: mixed hyperlipidemia (9) Adenocarcinoma of lung Status: Acute Qualifiers: Laterality: left Qualified Code(s): C34.92 - Malignant neoplasm of unspecified part of left bronchus or lung
[2023-11-11] MEDS: CLINIMIX 5 %/20 % 1,000 ML with MVI INJ (ADULT) 10 ML, MAGNESIUM SULFATE 50% INJ VIAL 2... IV SCH (11:40)
[2023-11-11] MEDS: K-DUR TAB 20 MEQ PO ONE ×2 (11:41→13:45)
[2023-11-11] MEDS: DRUG FILTER EXTENSION SET ONE (11:48)
[2023-11-11] MEDS: NS + KCL 40 MEQ/L 1,000 ML IV SCH (16:33)
[2023-11-12 05:57] LABS: BASOPHILS % (AUTO) 0.6 % (0.2-1.0); EOSINOPHILS # (AUTO) 0.1 x10^3/uL (0.0-0.2); EOSINOPHILS % (AUTO) 1.4 % (0.9-2.9); HEMATOCRIT 26.9 % (42.0-54.0); LYMPHOCYTES # (AUTO) 2.1 X10^3/uL (1.3-2.9); LYMPHOCYTES % (AUTO) 28.9 % (21.0-51.0); MEAN CORPUSCULAR HEMOGLOBIN 30.5 pg (27.0-34.0); MEAN CORPUSCULAR HGB CONC 33.3 g/dL (33.0-35.0); MEAN CORPUSCULAR VOLUME 91.7 fL (80.0-100.0); MEAN PLATELET VOLUME 10.3 fL (7.4-11.0); MONOCYTES # (AUTO) 0.9 x10^3/uL (0.3-0.8); MONOCYTES % (AUTO) 11.6 % (0.0-13.0); NEUTROPHILS # (AUTO) 4.3 x10^3/uL (2.2-4.8); NEUTROPHILS % (AUTO) 57.5 % (42.0-75.0); PLATELET COUNT 107 X10^3/uL (150.0-450.0); RED BLOOD COUNT 2.93 X10^6/uL (4.7-6.0); RED CELL DISTRIBUTION WIDTH 15.1 % (11.6-16.5); WHITE BLOOD COUNT 7.4 X10^3/uL (3.6-10.0)
[2023-11-12 06:20] LABS: ALANINE AMINOTRANSFERASE 17 Units/L (12-78); ALBUMIN 2.9 g/dL (3.4-5.0); ALKALINE PHOSPHATASE 80 Units/L (46-116); ASPARTATE AMINO TRANSFERASE 21 Units/L (15-37); BLOOD UREA NITROGEN 4 mg/dL (7-18); CALCIUM 8.1 mg/dL (8.5-10.1); CARBON DIOXIDE 21.1 mmol/L (21-32); CHLORIDE 112 mmol/L (98-107); COR NA(FOR HYPERGLY) 143 mmol/L (136-145); CREATININE 0.46 mg/dL (0.70-1.30); GLUCOSE 111 mg/dL (65-99); POTASSIUM 4.2 mmol/L (3.5-5.1); SODIUM 143 mmol/L (136-145); TOTAL PROTEIN 5.7 g/dL (6.4-8.2); eGFR NON BLACK RACES > 60 (>60)
[2023-11-12] MEDS: TORADOL 30 MG VIAL IVP SCH (11:29)
[2023-11-12] MEDS: TORADOL 30 MG VIAL ONE (11:51)
[2023-11-12] MEDS: CLINIMIX 5 %/20 % 1,000 ML with MVI INJ (ADULT) 10 ML, MAGNESIUM SULFATE 50% INJ VIAL 2... IV SCH (12:08)
[2023-11-12] MEDS: DRUG FILTER EXTENSION SET ONE (12:08)
--- NOTE | 2023-11-12 12:15 | CT ---
EXAM:CT face without IV contrastHISTORY:FACIAL SWELLING FOR 2-3 WEEKS, PT REPORTS FEELING LIKE "[place] JAW" ; HX-LUNG CANCER -COMPARISON:None.TECHNIQUE:Multiple axial images of the facial structures were obtained from the mandible to superior portions of the orbits. Study is performed without IV contrast. Dose reduction techniques including Automated Exposure Control (AEC) and adjustment of mA and kV were utilized.FINDINGS:There is concern for subcutaneous edema in the lips and chin. There is no suggestion of a focal fluid collection. Visualized portions of the parotid glands and submandibular glands appear normal.2 remaining mandibular teeth are seen. There appear to be a few remaining teeth roots in the mandible and maxilla. There is very slight cortical regularity of the right-side of the mentum of the mandible. There is a tiny dot of adjacent air or gas that may be in the oropharynx but could possibly be in the soft tissues of the chin. Osteomyelitis in the anterior right side of the mandible is not excluded.No mandibular fracture is seen. Paranasal sinuses appear clear. No orbital abnormality is seen. There is reversed cervical lordosis which could be positional or due to muscular spasm. Large anterior osteophytes are seen in the mid to lower cervical spine and could be a source of dysphagia.IMPRESSION:Slight cortical irregularity in the right-side of the mandible anteriorly is concerning for possible osteomyelitis. There is likely edema in the lips and chin that could be cellulitis or bland edema. No evidence of a soft tissue abscess is seen.THIS IS AN ELECTRONICALLY VERIFIED FINAL REPORT11/12/2023 12:12 PM - Electronically signed by Earnest Anderson MD
[2023-11-12] MEDS ORDERED: PHARMACY CONSULT - VANCOMYCIN XX SCH (15:00)
[2023-11-12] MEDS: VANCOMYCIN IV *PREMIX 750 mg/150 ML BAG 750 MG/150 ML PIGGYBACK IV SCH (16:30)
--- NOTE | 2023-11-12 17:50 | PCM.PROG ---
Progress Note - Progress Note for Day of Date of Exam: 11/12/23 - Subjective Subjective: IS CURRENTLY INPATIENT STATUS FOR TREATMENT OF DEHYDRATION, ANEMIA, ELECTROLYTE DEPLETION, GENERALIZED WEAKNESS, AND GENERALIZED SWELLING. PATIENT WAS RECENTLY DIAGNOSED WITH STAGE 1A3 LEFT UPPER LOBE ADENOCARCINOMA. HE IS STATUS POST CYBERKNIFE THERAPY TO MASS OF LUNG. HIS CURRENT MEDICAL HX INCLUDES: GERD, ESOPHAGEAL STRICTURE, CHRONIC PANCREATITIS, OSTEOARTHRITIS, BPH, HYPERLIPIDEMIA, HIP REPLACEMENT, SARAH IN LEFT LEG. TODAY, HE IS ALERT AND ORIENTED, LYING IN BED ON MORNING ROUNDS. HE CONTINUES TO COMPLAIN OF GENERALIZED WEAKNESS THIS MORNING. HE ALSO COMPLAINS OF RIGHT SIDE JAW PAIN AND FACIAL SWELLING. ON EXAMINATION, THERE IS SOME FACIAL SWELLING NOTED. HEART IS REGULAR IN RATE AND RHYTHM. BILATERAL LUNGS ARE NOTED WITH DIMINISHED LUNG SOUNDS. ABDOMEN IS FLAT, SOFT, AND NON-TENDER WITH NORMAL BOWEL SOUNDS NOTED IN ALL QUADRANTS. DIFFUSE UPPER AND LOWER EXTREMITY WEAKNESS NOTED. NON-PITTING EDEMA NOTED. HIS VITALS THIS MORNING ARE: 97.5-79-18-100%-143/80. LABS WERE OBTAINED. WBC 7.4, RBC 2.93, HGB 9.0, HCT 26.9, PLT COUNT 107, SODIUM 143, POTASSIUM 4.2, CHLORIDE 112, BUN 4, CREATININE 0.46, GLUCOSE 111, CALCIUM 8.1, MAGNESIUM 1.7, AST 21, ALT 17, ALK PHOS 80, TOTAL PROTEIN 5.7, ALBUMIN 2.9. WE OBTAINED A FACIAL BONES CT TODAY. IT REVEALED: Slight cortical irregularity in the right-side of the mandible anteriorly is concerning for possible osteomyelitis. There is likely edema in the lips and chin that could be cellulitis or bland edema. No evidence of a soft tissue abscess is seen. HE IS CURRENTLY RECEIVING: NORMAL SALINE AT KVO, TPN AT 63 ML/HR, ALBUMIN 25% IV DAILY, ZOFRAN 4MG IV Q8H PRN, OTBS ACHS, HUMULIN R SLIDING SCALE, MORPHINE SULFATE 2MG IV Q4H PRN. HIS HOME MEDICATIONS OF NORVASC, LIPITOR, PEPCID, FOLIC ACID, LASIX, MAG OX, MEGACE, PERCOCET, PROTONIX, MICRO K, CARAFATE, AND FLOMAX WERE RESUMED. TODAY, WE WILL ADD VANCOMYCIN 750MG IV Q12H. WE WILL HAVE PHYSICAL THERAPY WORK WITH HIM. WE WILL CONTINUE WITH CURRENT PLAN OF CARE TODAY. OTHERWISE, WE WILL FOLLOW UP WITH AM LABS AND CONTINUE TO MONITOR. TIME SPENT ON CLINICAL ASSESSMENT, REVIEWING LABS AND IMAGING, DECISION MAKING, AND DOCUMENTATION GREATER THAN 45 MINUTES. - Past Medical Family Social History Past Med/Fam/Surg Hx: No changes since H&P Allergies: Allergies Penicillins Allergy (Verified 01/24/23 11:17) - Review of Systems ROS: No change since H&P - Vital Signs and I&O's Vital Signs: Vital Signs Temperature 98.1 F Temperature 97.6 F Pulse Rate [Apical] 75 Pulse Rate [Apical] 63 Respiratory Rate 18 Respiratory Rate 18 Respiratory Rate 20 Respiratory Rate 20 Blood Pressure [Right Arm] 109/68 Blood Pressure [Right Arm] 123/73 O2 Sat by Pulse Oximetry 100 O2 Sat by Pulse Oximetry 100 Intake and Output: Intake & Output 11/10/23 11/11/23 11/12/23 11/13/23 11:59 11:59 11:59 11:59 Intake Total 3355 / 3355 3678 / 3678 1569 / 1569 360 / 360 Output Total 3500 / 3500 3150 / 3150 2900 / 2900 600 / 600 Balance -145 / -145 528 / 528 -1331 / -1331 -240 / -240 - Physical Exam Oriented: Normal Eyes: Normal Ear: Normal Nose: Normal Throat: Normal Respiratory: Diminished Cardiovascular: Normal : Normal Auscultation: Bowel Sounds: Normal Tenderness: Normal Skin: Normal Musculoskeletal: Normal Psychiatric: Normal Mood Description: Calm Affect: Normal Speech Pattern: Clear, Appropriate - Laboratory and Diagnostics Result Diagrams: 11/12/23 05:08 11/12/23 05:08 Labs: 11/07/23 22:50 Urine,Clean Catch Urine Culture - Final Laboratory WBC 7.4 X10^3/uL (3.6-10.0) 11/12/23 05:08 RBC 2.93 X10^6/uL (4.7-6.0) L 11/12/23 05:08 Hgb 9.0 g/dL (13.5-18.0) L 11/12/23 05:08 Hct 26.9 % (42.0-54.0) L 11/12/23 05:08 MCV 91.7 fL (80.0-100.0) 11/12/23 05:08 MCH 30.5 pg (27.0-34.0) 11/12/23 05:08 MCHC 33.3 g/dL (33.0-35.0) 11/12/23 05:08 RDW 15.1 % (11.6-16.5) 11/12/23 05:08 Plt Count 107 X10^3/uL (150.0-450.0) L 11/12/23 05:08 MPV 10.3 fL (7.4-11.0) 11/12/23 05:08 Neut % (Auto) 57.5 % (42.0-75.0) 11/12/23 05:08 Lymph % (Auto) 28.9 % (21.0-51.0) 11/12/23 05:08 [place] % (Auto) 11.6 % (0.0-13.0) 11/12/23 05:08 Eos % (Auto) 1.4 % (0.9-2.9) 11/12/23 05:08 Baso % (Auto) 0.6 % (0.2-1.0) 11/12/23 05:08 Neut # (Auto) 4.3 x10^3/uL (2.2-4.8) 11/12/23 05:08 Lymph # (Auto) 2.1 X10^3/uL (1.3-2.9) 11/12/23 05:08 [place] # (Auto) 0.9 x10^3/uL (0.3-0.8) H 11/12/23 05:08 Eos # (Auto) 0.1 x10^3/uL (0.0-0.2) 11/12/23 05:08 Baso # (Auto) 0.0 X10^3/uL (0.0-0.1) 11/12/23 05:08 Absolute Nucleated RBC 0.0 /100WBC 11/12/23 05:08 Sodium 143 mmol/L (136-145) 11/12/23 05:08 Corrected Sodium 143 mmol/L (136-145) 11/12/23 05:08 Potassium 4.2 mmol/L (3.5-5.1) 11/12/23 05:08 Chloride 112 mmol/L (98-107) H 11/12/23 05:08 Carbon Dioxide 21.1 mmol/L (21-32) 11/12/23 05:08 BUN 4 mg/dL (7-18) L 11/12/23 05:08 Creatinine 0.46 mg/dL (0.70-1.30) L 11/12/23 05:08 Est GFR (MDRD) Af Amer > 60 (>60) 11/12/23 05:08 Est GFR (MDRD) Non-Af > 60 (>60) 11/12/23 05:08 Glucose 111 mg/dL (65-99) H 11/12/23 05:08 POC Glucose (mg/dL) 246 mg/dL (65-99) H 11/12/23 11:59 Calcium 8.1 mg/dL (8.5-10.1) L 11/12/23 05:08 Corrected Calcium 9.0 mg/dL (8.5-10.1) 11/12/23 05:08 Phosphorus 0.3 mg/dL (2.6-4.7) L 11/11/23 05:04 Magnesium 1.7 mg/dL (2.0-2.9) L 11/12/23 05:08 Total Bilirubin 0.50 mg/dL (0.2-1.0) 11/12/23 05:08 AST 21 Units/L (15-37) 11/12/23 05:08 ALT 17 Units/L (12-78) 11/12/23 05:08 Alkaline Phosphatase 80 Units/L (46-116) 11/12/23 05:08 Creatine Kinase 33 Units/L (39-308) L 11/07/23 19:09 Troponin I High Sens 4.8 ng/L (4.0-60.0) 11/07/23 19:09 B-Natriuretic Peptide 83.0 pg/mL (0-79) H 11/07/23 19:09 Total Protein 5.7 g/dL (6.4-8.2) L 11/12/23 05:08 Albumin 2.9 g/dL (3.4-5.0) L 11/12/23 05:08 Globulin 2.8 g/dL (2.5-4.5) 11/12/23 05:08 Albumin/Globulin Ratio 1.0 Ratio (1.1-2.1) L 11/12/23 05:08 Prealbumin 10.9 mg/dL (18-35.7) L 11/09/23 05:02 Triglycerides 85 mg/dL (0-150) 11/11/23 05:04 Amylase 81 Units/L (25-115) 11/07/23 19:09 Lipase < 6 Units/L (16-77) L 11/07/23 19:09 Specimen Type Clean catch urine 11/07/23 22:50 Urine Color Dark yellow (YELLOW) 11/07/23 22:50 Urine Appearance Clear (CLEAR) 11/07/23 22:50 Urine pH 6.0 (5.0 - 8.0) 11/07/23 22:50 Ur Specific [place] 1.010 (1.000-1.030) 11/07/23 22:50 Urine Protein Negative (NEGATIVE) 11/07/23 22:50 Urine Glucose (UA) Negative (NEGATIVE) 11/07/23 22:50 Urine Ketones Negative (NEGATIVE) 11/07/23 22:50 Urine Blood Negative (NEGATIVE) 11/07/23 22:50 Urine Nitrite Negative (NEGATIVE) 11/07/23 22:50 Urine Bilirubin Negative (NEGATIVE) 11/07/23 22:50 Urine Urobilinogen Normal (NORMAL) 11/07/23 22:50 Ur Leukocyte Esterase Negative (NEGATIVE) 11/07/23 22:50 - Plan (1) Dehydration Status: Acute Plan: NORMAL SALINE AT KVO, TPN AT 63 ML/HR, ALBUMIN 25% IV DAILY, VANCOMYCIN 750MG IV BID, ZOFRAN 4MG IV Q8H PRN, OTBS ACHS, HUMULIN R SLIDING SCALE, MORPHINE SULFATE 2MG IV Q4H PRN. HIS HOME MEDICATIONS OF NORVASC, LIPITOR, PEPCID, FOLIC ACID, LASIX, MAG OX, MEGACE, PERCOCET, PROTONIX, MICRO K, CARAFATE, AND FLOMAX WERE RESUMED. (2) Cellulitis of jaw, right Status: Acute (3) Generalized weakness Status: Acute (4) Hypokalemia Status: Acute (5) Hypomagnesemia Status: Acute (6) Anemia Status: Chronic Qualifiers: Anemia type: iron deficiency Iron deficiency anemia type: unspecified iron deficiency Qualified Code(s): D50.9 - Iron deficiency anemia, unspecified (7) BPH (benign prostatic hyperplasia) Status: Chronic Qualifiers: Lower urinary tract symptom presence: symptoms absent (8) Gastroesophageal reflux disease Status: Chronic Qualifiers: Esophagitis presence: with esophagitis Esophagitis bleeding: unspecified whether hemorrhage Qualified Code(s): K21.00 - Gastro-esophageal reflux disease with esophagitis, without bleeding (9) Hyperlipidemia Status: Chronic Qualifiers: Hyperlipidemia type: mixed hyperlipidemia (10) Adenocarcinoma of lung Status: Acute Qualifiers: Laterality: left Qualified Code(s): C34.92 - Malignant neoplasm of unspecified part of left bronchus or lung
[2023-11-12] MEDS ORDERED: DRUG FILTER EXTENSION SET ONE (21:34)
[2023-11-13 05:16] LABS: BASOPHILS % (AUTO) 0.4 % (0.2-1.0); EOSINOPHILS % (AUTO) 0.3 % (0.9-2.9); HEMATOCRIT 27.5 % (42.0-54.0); HEMOGLOBIN 9.4 g/dL (13.5-18.0); LYMPHOCYTES # (AUTO) 1.5 X10^3/uL (1.3-2.9); LYMPHOCYTES % (AUTO) 19.2 % (21.0-51.0); MEAN CORPUSCULAR HEMOGLOBIN 31.2 pg (27.0-34.0); MEAN CORPUSCULAR VOLUME 91.7 fL (80.0-100.0); MEAN PLATELET VOLUME 10.7 fL (7.4-11.0); MONOCYTES # (AUTO) 0.9 x10^3/uL (0.3-0.8); NEUTROPHILS # (AUTO) 5.6 x10^3/uL (2.2-4.8); NEUTROPHILS % (AUTO) 69.1 % (42.0-75.0); PLATELET COUNT 118 X10^3/uL (150.0-450.0); RED CELL DISTRIBUTION WIDTH 15.4 % (11.6-16.5)
[2023-11-13 05:32] LABS: ALANINE AMINOTRANSFERASE 19 Units/L (12-78); ALKALINE PHOSPHATASE 77 Units/L (46-116); ASPARTATE AMINO TRANSFERASE 17 Units/L (15-37); BLOOD UREA NITROGEN 6 mg/dL (7-18); CARBON DIOXIDE 21.2 mmol/L (21-32); CHLORIDE 111 mmol/L (98-107); COR CA(FOR HYPOALB) 8.8 mg/dL (8.5-10.1); COR NA(FOR HYPERGLY) 142 mmol/L (136-145); CREATININE 0.56 mg/dL (0.70-1.30); GLUCOSE 164 mg/dL (65-99); POTASSIUM 4.4 mmol/L (3.5-5.1); SODIUM 140 mmol/L (136-145); TOTAL PROTEIN 5.7 g/dL (6.4-8.2); eGFR NON BLACK RACES > 60 (>60)
--- NOTE | 2023-11-13 10:05 | PCM.PROG ---
Progress Note - Progress Note for Day of Date of Exam: 11/13/23 - Subjective Subjective: IS CURRENTLY INPATIENT STATUS FOR TREATMENT OF DEHYDRATION, ANEMIA, ELECTROLYTE DEPLETION, GENERALIZED WEAKNESS, AND GENERALIZED SWELLING. PATIENT WAS RECENTLY DIAGNOSED WITH STAGE 1A3 LEFT UPPER LOBE ADENOCARCINOMA. HE IS STATUS POST CYBERKNIFE THERAPY TO MASS OF LUNG. HIS CURRENT MEDICAL HX INCLUDES: GERD, ESOPHAGEAL STRICTURE, CHRONIC PANCREATITIS, OSTEOARTHRITIS, BPH, HYPERLIPIDEMIA, HIP REPLACEMENT, SARAH IN LEFT LEG. TODAY, HE IS ALERT AND ORIENTED, LYING IN BED ON MORNING ROUNDS. HE CONTINUES TO COMPLAIN OF GENERALIZED WEAKNESS THIS MORNING. HE ALSO COMPLAINS OF RIGHT SIDE JAW PAIN AND FACIAL SWELLING. HE REPORTS THAT PAIN STARTS ON THE RIGHT SIDE JAW, BUT DOES RADIATE TO THE LEFT SIDE. HE DESCRIBES A LOCK-JAW FEELING. ON EXAMINATION, THERE IS SOME FACIAL SWELLING NOTED. HEART IS REGULAR IN RATE AND RHYTHM. BILATERAL LUNGS ARE NOTED WITH DIMINISHED LUNG SOUNDS. ABDOMEN IS FLAT, SOFT, AND NON-TENDER WITH NORMAL BOWEL SOUNDS NOTED IN ALL QUADRANTS. DIFFUSE UPPER AND LOWER EXTREMITY WEAKNESS NOTED. NON-PITTING EDEMA NOTED TO LOWER EXTREMITIES. HIS VITALS THIS MORNING ARE: 98.3-85-18-100%-144/86. LABS WERE OBTAINED. WBC 8.0, RBC 3.00, HGB 9.4, HCT 27.5, PLT COUNT 118, SODIUM 140, POTASSIUM 4.4, CHLORIDE 111, BUN 6, CREATININE 0.56, GLUCOSE 164, CALCIUM 8.0, TOTAL BILI 0.50, AST 17, ALT 19, ALK PHOS 77, TOTAL PROTEIN 5.7, ALBUMIN 3.0. WE OBTAINED A FACIAL BONES CT YESTERDAY. IT REVEALED: Slight cortical irregularity in the right-side of the mandible anteriorly is concerning for possible osteomyelitis. There is likely edema in the lips and chin that could be cellulitis or bland edema. No evidence of a soft tissue abscess is seen. HE IS CURRENTLY RECEIVING: NORMAL SALINE AT KVO, VANCOMYCIN 750MG IV Q12H, TPN AT 63 ML/HR, ALBUMIN 25% IV DAILY, ZOFRAN 4MG IV Q8H PRN, OTBS ACHS, HUMULIN R SLIDING SCALE, MORPHINE SULFATE 2MG IV Q4H PRN. HIS HOME MEDICATIONS OF NORVASC, LIPITOR, PEPCID, FOLIC ACID, LASIX, MAG OX, MEGACE, PERCOCET, PROTONIX, MICRO K, CARAFATE, AND FLOMAX WERE RESUMED. TODAY, WE WILL ORDER A MRI OF THE FACIAL BONES WITH AND WITHOUT CONTRAST. WE WILL HAVE PHYSICAL THERAPY CONTINUE TO WORK WITH HIM. OTHERWISE, WE WILL CONTINUE WITH CURRENT PLAN OF CARE TODAY. WE WILL FOLLOW UP WITH AM LABS AND CONTINUE TO MONITOR. TIME SPENT ON CLINICAL ASSESSMENT, REVIEWING LABS AND IMAGING, DECISION MAKING, AND DOCUMENTATION GREATER THAN 45 MINUTES. - Past Medical Family Social History Past Med/Fam/Surg Hx: No changes since H&P Allergies: Allergies Penicillins Allergy (Verified 01/24/23 11:17) - Review of Systems ROS: No change since H&P - Vital Signs and I&O's Vital Signs: Vital Signs Temperature 98.3 F Pulse Rate [Apical] 85 Respiratory Rate 18 Respiratory Rate 18 Respiratory Rate 20 Blood Pressure [Right Arm] 144/86 O2 Sat by Pulse Oximetry 100 Intake and Output: Intake & Output 11/10/23 11/11/23 11/12/23 11/13/23 11:59 11:59 11:59 11:59 Intake Total 3355 / 3355 3678 / 3678 1569 / 1569 2610 / 2610 Output Total 3500 / 3500 3150 / 3150 2900 / 2900 1500 / 1500 Balance -145 / -145 528 / 528 -1331 / -1331 1110 / 1110 - Physical Exam Oriented: Normal Eyes: Normal Ear: Normal Nose: Normal Throat: Normal Respiratory: Diminished Cardiovascular: Normal : Normal Auscultation: Bowel Sounds: Normal Tenderness: Normal Skin: Normal Musculoskeletal: Normal Psychiatric: Normal Mood Description: Calm Affect: Normal Speech Pattern: Clear, Appropriate - Laboratory and Diagnostics Result Diagrams: 11/13/23 04:34 11/13/23 04:34 Labs: 11/07/23 22:50 Urine,Clean Catch Urine Culture - Final Laboratory WBC 8.0 X10^3/uL (3.6-10.0) 11/13/23 04:34 RBC 3.00 X10^6/uL (4.7-6.0) L 11/13/23 04:34 Hgb 9.4 g/dL (13.5-18.0) L 11/13/23 04:34 Hct 27.5 % (42.0-54.0) L 11/13/23 04:34 MCV 91.7 fL (80.0-100.0) 11/13/23 04:34 MCH 31.2 pg (27.0-34.0) 11/13/23 04:34 MCHC 34.0 g/dL (33.0-35.0) 11/13/23 04:34 RDW 15.4 % (11.6-16.5) 11/13/23 04:34 Plt Count 118 X10^3/uL (150.0-450.0) L 11/13/23 04:34 MPV 10.7 fL (7.4-11.0) 11/13/23 04:34 Neut % (Auto) 69.1 % (42.0-75.0) 11/13/23 04:34 Lymph % (Auto) 19.2 % (21.0-51.0) L 11/13/23 04:34 [place] % (Auto) 11.0 % (0.0-13.0) 11/13/23 04:34 Eos % (Auto) 0.3 % (0.9-2.9) L 11/13/23 04:34 Baso % (Auto) 0.4 % (0.2-1.0) 11/13/23 04:34 Neut # (Auto) 5.6 x10^3/uL (2.2-4.8) H 11/13/23 04:34 Lymph # (Auto) 1.5 X10^3/uL (1.3-2.9) 11/13/23 04:34 [place] # (Auto) 0.9 x10^3/uL (0.3-0.8) H 11/13/23 04:34 Eos # (Auto) 0.0 x10^3/uL (0.0-0.2) 11/13/23 04:34 Baso # (Auto) 0.0 X10^3/uL (0.0-0.1) 11/13/23 04:34 Absolute Nucleated RBC 0.1 /100WBC 11/13/23 04:34 Sodium 140 mmol/L (136-145) 11/13/23 04:34 Corrected Sodium 142 mmol/L (136-145) 11/13/23 04:34 Potassium 4.4 mmol/L (3.5-5.1) 11/13/23 04:34 Chloride 111 mmol/L (98-107) H 11/13/23 04:34 Carbon Dioxide 21.2 mmol/L (21-32) 11/13/23 04:34 BUN 6 mg/dL (7-18) L 11/13/23 04:34 Creatinine 0.56 mg/dL (0.70-1.30) L 11/13/23 04:34 Est GFR (MDRD) Af Amer > 60 (>60) 11/13/23 04:34 Est GFR (MDRD) Non-Af > 60 (>60) 11/13/23 04:34 Glucose 164 mg/dL (65-99) H 11/13/23 04:34 POC Glucose (mg/dL) 170 mg/dL (65-99) H 11/13/23 02:24 Calcium 8.0 mg/dL (8.5-10.1) L 11/13/23 04:34 Corrected Calcium 8.8 mg/dL (8.5-10.1) 11/13/23 04:34 Phosphorus 0.3 mg/dL (2.6-4.7) L 11/11/23 05:04 Magnesium 1.7 mg/dL (2.0-2.9) L 11/12/23 05:08 Total Bilirubin 0.50 mg/dL (0.2-1.0) 11/13/23 04:34 AST 17 Units/L (15-37) 11/13/23 04:34 ALT 19 Units/L (12-78) 11/13/23 04:34 Alkaline Phosphatase 77 Units/L (46-116) 11/13/23 04:34 Creatine Kinase 33 Units/L (39-308) L 11/07/23 19:09 Troponin I High Sens 4.8 ng/L (4.0-60.0) 11/07/23 19:09 B-Natriuretic Peptide 83.0 pg/mL (0-79) H 11/07/23 19:09 Total Protein 5.7 g/dL (6.4-8.2) L 11/13/23 04:34 Albumin 3.0 g/dL (3.4-5.0) L 11/13/23 04:34 Globulin 2.7 g/dL (2.5-4.5) 11/13/23 04:34 Albumin/Globulin Ratio 1.1 Ratio (1.1-2.1) 11/13/23 04:34 Prealbumin 10.9 mg/dL (18-35.7) L 11/09/23 05:02 Triglycerides 85 mg/dL (0-150) 11/11/23 05:04 Amylase 81 Units/L (25-115) 11/07/23 19:09 Lipase < 6 Units/L (16-77) L 11/07/23 19:09 Specimen Type Clean catch urine 11/07/23 22:50 Urine Color Dark yellow (YELLOW) 11/07/23 22:50 Urine Appearance Clear (CLEAR) 11/07/23 22:50 Urine pH 6.0 (5.0 - 8.0) 11/07/23 22:50 Ur Specific [place] 1.010 (1.000-1.030) 11/07/23 22:50 Urine Protein Negative (NEGATIVE) 11/07/23 22:50 Urine Glucose (UA) Negative (NEGATIVE) 11/07/23 22:50 Urine Ketones Negative (NEGATIVE) 11/07/23 22:50 Urine Blood Negative (NEGATIVE) 11/07/23 22:50 Urine Nitrite Negative (NEGATIVE) 11/07/23 22:50 Urine Bilirubin Negative (NEGATIVE) 11/07/23 22:50 Urine Urobilinogen Normal (NORMAL) 11/07/23 22:50 Ur Leukocyte Esterase Negative (NEGATIVE) 11/07/23 22:50 - Plan (1) Dehydration Status: Acute Plan: NORMAL SALINE AT KVO, TPN AT 63 ML/HR, ALBUMIN 25% IV DAILY, VANCOMYCIN 750MG IV BID, ZOFRAN 4MG IV Q8H PRN, OTBS ACHS, HUMULIN R SLIDING SCALE, MORPHINE SULFATE 2MG IV Q4H PRN. HIS HOME MEDICATIONS OF NORVASC, LIPITOR, PEPCID, FOLIC ACID, LASIX, MAG OX, MEGACE, PERCOCET, PROTONIX, MICRO K, CARAFATE, AND FLOMAX WERE RESUMED. (2) Cellulitis of jaw, right Status: Acute (3) Generalized weakness Status: Acute (4) Hypokalemia Status: Acute (5) Hypomagnesemia Status: Acute (6) Anemia Status: Chronic Qualifiers: Anemia type: iron deficiency Iron deficiency anemia type: unspecified iron deficiency Qualified Code(s): D50.9 - Iron deficiency anemia, unspecified (7) BPH (benign prostatic hyperplasia) Status: Chronic Qualifiers: Lower urinary tract symptom presence: symptoms absent (8) Gastroesophageal reflux disease Status: Chronic Qualifiers: Esophagitis presence: with esophagitis Esophagitis bleeding: unspecified whether hemorrhage Qualified Code(s): K21.00 - Gastro-esophageal reflux disease with esophagitis, without bleeding (9) Hyperlipidemia Status: Chronic Qualifiers: Hyperlipidemia type: mixed hyperlipidemia (10) Adenocarcinoma of lung Status: Acute Qualifiers: Laterality: left Qualified Code(s): C34.92 - Malignant neoplasm of unspecified part of left bronchus or lung
[2023-11-13] MEDS ORDERED: MULTIHANCE INJ VIAL ONE (11:23)
--- NOTE | 2023-11-13 13:27 | MRI ---
EXAM: MRI of the face without and with IV contrast HISTORY: POSSIBLE OSTEOMYELITIS OF RIGHT MANDIBLE; abnormal CT- COMPARISON: CT from previous day TECHNIQUE: Multiplanar multi-sequence MRI of the face was obtained prior to and following administration of IV c ontrast. 16 cc MultiHance IV contrast. FINDINGS: Motion prominently limits the study. Furthermore, there is inhomogeneous fat saturation in the jaw. No obvious osteomyelitis is seen in the mandible but a tiny focus could be obscured on this study. The suspected edema in the lips and chin suggested on CT are not identified but mild edema could be o bscured due to motion on this study. IMPRESSION: Motion and other artifacts prominently limit the study. No evidence of osteomyelitis or cellulitis i s seen on this exam. THIS IS AN ELECTRONICALLY VERIFIED FINAL REPORT 11/13/2023 1:21 PM - Electronically signed by Earnest Anderson MD
[2023-11-13] MEDS: CLINIMIX 5 %/20 % 1,000 ML with MVI INJ (ADULT) 10 ML, MAGNESIUM SULFATE 50% INJ VIAL 2... IV SCH (18:56)
[2023-11-13] MEDS: PHARMACY COMMENT IV NR (20:08)
[2023-11-13 22:07] LABS: CREATININE 0.58 mg/dL (0.70-1.30); VANCOMYCIN,TROUGH 11.9 ug/mL (15-20)
[2023-11-14 04:59] LABS: BASOPHILS % (AUTO) 0.4 % (0.2-1.0); EOSINOPHILS # (AUTO) 0.1 x10^3/uL (0.0-0.2); EOSINOPHILS % (AUTO) 1.2 % (0.9-2.9); HEMATOCRIT 25.4 % (42.0-54.0); HEMOGLOBIN 8.7 g/dL (13.5-18.0); LYMPHOCYTES # (AUTO) 1.7 X10^3/uL (1.3-2.9); LYMPHOCYTES % (AUTO) 26.2 % (21.0-51.0); MEAN CORPUSCULAR HEMOGLOBIN 31.5 pg (27.0-34.0); MEAN CORPUSCULAR HGB CONC 34.2 g/dL (33.0-35.0); MEAN CORPUSCULAR VOLUME 92.1 fL (80.0-100.0); MEAN PLATELET VOLUME 10.3 fL (7.4-11.0); MONOCYTES # (AUTO) 0.8 x10^3/uL (0.3-0.8); MONOCYTES % (AUTO) 11.4 % (0.0-13.0); NEUTROPHILS % (AUTO) 60.8 % (42.0-75.0); PLATELET COUNT 115 X10^3/uL (150.0-450.0); RED BLOOD COUNT 2.76 X10^6/uL (4.7-6.0); RED CELL DISTRIBUTION WIDTH 15.5 % (11.6-16.5); WHITE BLOOD COUNT 6.6 X10^3/uL (3.6-10.0)
[2023-11-14 05:10] LABS: ALANINE AMINOTRANSFERASE 21 Units/L (12-78); ALBUMIN 3.2 g/dL (3.4-5.0); ALKALINE PHOSPHATASE 66 Units/L (46-116); ASPARTATE AMINO TRANSFERASE 19 Units/L (15-37); BLOOD UREA NITROGEN 9 mg/dL (7-18); CALCIUM 7.7 mg/dL (8.5-10.1); CARBON DIOXIDE 20.9 mmol/L (21-32); CHLORIDE 112 mmol/L (98-107); COR CA(FOR HYPOALB) 8.3 mg/dL (8.5-10.1); CREATININE 0.54 mg/dL (0.70-1.30); GLUCOSE 108 mg/dL (65-99); POTASSIUM 3.6 mmol/L (3.5-5.1); SODIUM 142 mmol/L (136-145); TOTAL PROTEIN 5.7 g/dL (6.4-8.2); eGFR NON BLACK RACES > 60 (>60)
[2023-11-14 05:13] LABS: MAGNESIUM 1.7 mg/dL (2.0-2.9); PHOSPHORUS 0.5 mg/dL (2.6-4.7)
--- NOTE | 2023-11-14 11:12 | PCM.PROG ---
Progress Note - Progress Note for Day of Date of Exam: 11/14/23 - Subjective Subjective: IS CURRENTLY INPATIENT STATUS FOR TREATMENT OF DEHYDRATION, POSSIBLE OSTEOMYELITIS OF RIGHT MANDIBLE, CELLULITIS OF RIGHT SIDE FACE, ANEMIA, ELECTROLYTE DEPLETION, GENERALIZED WEAKNESS, AND GENERALIZED SWELLING. 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 HE IS STATUS POST CYBERKNIFE THERAPY TO MASS OF LUNG. HIS CURRENT MEDICAL HX INCLUDES: GERD, ESOPHAGEAL STRICTURE, CHRONIC PANCREATITIS, OSTEOARTHRITIS, BPH, HYPERLIPIDEMIA, HIP REPLACEMENT, SARAH IN LEFT LEG. TODAY, HE IS ALERT AND ORIENTED, LYING IN BED ON MORNING ROUNDS. HE CONTINUES TO COMPLAIN OF GENERALIZED WEAKNESS THIS MORNING. HE ALSO COMPLAINS OF RIGHT SIDE JAW PAIN AND FACIAL SWELLING. HE REPORTS THAT PAIN STARTS ON THE RIGHT SIDE JAW, BUT DOES RADIATE TO THE LEFT SIDE. HE DESCRIBES A LOCK-JAW FEELING. ON EXAMINATION, THERE IS SOME FACIAL SWELLING NOTED. HEART IS REGULAR IN RATE AND RHYTHM. BILATERAL LUNGS ARE NOTED WITH DIMINISHED LUNG SOUNDS. ABDOMEN IS FLAT, SOFT, AND NON-TENDER WITH NORMAL BOWEL SOUNDS NOTED IN ALL QUADRANTS. DIFFUSE UPPER AND LOWER EXTREMITY WEAKNESS NOTED. NON-PITTING EDEMA NOTED TO LOWER EXTREMITIES. HIS VITALS THIS MORNING ARE: 98.0-80-20-100%-158/88. LABS WERE OBTAINED. WBC 6.6, RBC 2.76, HGB 8.7, HCT 25.4, PLT COUNT 115, SODIUM 142, POTASSIUM 3.6, CHLORIDE 112, CARBON DIOXIDE 20.9, BUN 9, CREATININE 0.54, GLUCOSE 108, CALCIUM 7.7, PHOSPHORUS 0.5, MAGNESIUM 1.7, TOTAL BILI 0.30, AST 19, ALT 21, ALK PHOS 66, TOTAL PROTEIN 5.7, ALBUMIN 3.2. HE IS CURRENTLY RECEIVING: NORMAL SALINE AT KVO, VANCOMYCIN 750MG IV Q12H, TPN AT 63 ML/HR, ALBUMIN 25% IV DAILY, ZOFRAN 4MG IV Q8H PRN, OTBS ACHS, HUMULIN R SLIDING SCALE, MORPHINE SULFATE 2MG IV Q4H PRN. HIS HOME MEDICATIONS OF NORVASC, LIPITOR, PEPCID, FOLIC ACID, LASIX, MAG OX, MEGACE, PERCOCET, PROTONIX, MICRO K, CARAFATE, AND FLOMAX WERE RESUMED. TODAY, WE WILL ADD LEVAQUIN 500MG IV DAILY. PHYSICAL THERAPY WILL CONTINUE TO WORK WITH HIM. WE WILL CONSULT FOR PLACEMENT OF A PORT A CATH DUE TO THE NEED FOR INTERNATIONAL REPRESENTATIVE ANTIBIOTICS AND FOR PATIENTS CANCER TREATMENT. OTHERWISE, WE WILL CONTINUE WITH CURRENT PLAN OF CARE TODAY. WE WILL FOLLOW UP WITH AM LABS AND CONTINUE TO MONITOR. TIME SPENT ON CLINICAL ASSESSMENT, REVIEWING LABS AND IMAGING, DECISION MAKING, AND DOCUMENTATION GREATER THAN 45 MINUTES. - Past Medical Family Social History Past Med/Fam/Surg Hx: No changes since H&P Allergies: Allergies Penicillins Allergy (Verified 01/24/23 11:17) - Review of Systems ROS: No change since H&P - Vital Signs and I&O's Vital Signs: Vital Signs Temperature 98.0 F Temperature 98.3 F Pulse Rate [Apical] 80 Pulse Rate [Apical] 76 Respiratory Rate 20 Respiratory Rate 20 Respiratory Rate 20 Respiratory Rate 20 Blood Pressure [Right Arm] 158/88 Blood Pressure [Right Arm] 134/70 O2 Sat by Pulse Oximetry 100 O2 Sat by Pulse Oximetry 100 Intake and Output: Intake & Output 11/11/23 11/12/23 11/13/23 11/14/23 11:59 11:59 11:59 11:59 Intake Total 3678 / 3678 1569 / 1569 2610 / 2610 2800 / 2800 Output Total 3150 / 3150 2900 / 2900 1500 / 1500 1700 / 1700 Balance 528 / 528 -1331 / -1331 1110 / 1110 1100 / 1100 - Physical Exam Oriented: Normal Eyes: Normal Ear: Normal Nose: Normal Throat: Normal Respiratory: Diminished Cardiovascular: Normal : Normal Auscultation: Bowel Sounds: Normal Palpation: Normal Tenderness: Normal Skin: Normal Musculoskeletal: Normal Psychiatric: Normal Mood Description: Calm Affect: Normal Speech Pattern: Clear, Appropriate - Laboratory and Diagnostics Result Diagrams: 11/14/23 04:13 11/14/23 04:13 Labs: 11/07/23 22:50 Urine,Clean Catch Urine Culture - Final Laboratory WBC 6.6 X10^3/uL (3.6-10.0) 11/14/23 04:13 RBC 2.76 X10^6/uL (4.7-6.0) L 11/14/23 04:13 Hgb 8.7 g/dL (13.5-18.0) L 11/14/23 04:13 Hct 25.4 % (42.0-54.0) L 11/14/23 04:13 MCV 92.1 fL (80.0-100.0) 11/14/23 04:13 MCH 31.5 pg (27.0-34.0) 11/14/23 04:13 MCHC 34.2 g/dL (33.0-35.0) 11/14/23 04:13 RDW 15.5 % (11.6-16.5) 11/14/23 04:13 Plt Count 115 X10^3/uL (150.0-450.0) L 11/14/23 04:13 MPV 10.3 fL (7.4-11.0) 11/14/23 04:13 Neut % (Auto) 60.8 % (42.0-75.0) 11/14/23 04:13 Lymph % (Auto) 26.2 % (21.0-51.0) 11/14/23 04:13 [place]aca % (Auto) 11.4 % (0.0-13.0) 11/14/23 04:13 Eos % (Auto) 1.2 % (0.9-2.9) 11/14/23 04:13 Baso % (Auto) 0.4 % (0.2-1.0) 11/14/23 04:13 Neut # (Auto) 4.0 x10^3/uL (2.2-4.8) 11/14/23 04:13 Lymph # (Auto) 1.7 X10^3/uL (1.3-2.9) 11/14/23 04:13 [place]aca # (Auto) 0.8 x10^3/uL (0.3-0.8) 11/14/23 04:13 Eos # (Auto) 0.1 x10^3/uL (0.0-0.2) 11/14/23 04:13 Baso # (Auto) 0.0 X10^3/uL (0.0-0.1) 11/14/23 04:13 Absolute Nucleated RBC 0.1 /100WBC 11/14/23 04:13 Sodium 142 mmol/L (136-145) 11/14/23 04:13 Corrected Sodium TNP 11/14/23 04:13 Potassium 3.6 mmol/L (3.5-5.1) 11/14/23 04:13 Chloride 112 mmol/L (98-107) H 11/14/23 04:13 Carbon Dioxide 20.9 mmol/L (21-32) L 11/14/23 04:13 BUN 9 mg/dL (7-18) 11/14/23 04:13 Creatinine 0.54 mg/dL (0.70-1.30) L 11/14/23 04:13 Est GFR (MDRD) Af Amer > 60 (>60) 11/14/23 04:13 Est GFR (MDRD) Non-Af > 60 (>60) 11/14/23 04:13 Glucose 108 mg/dL (65-99) H 11/14/23 04:13 POC Glucose (mg/dL) 177 mg/dL (65-99) H 11/14/23 10:46 Calcium 7.7 mg/dL (8.5-10.1) L 11/14/23 04:13 Corrected Calcium 8.3 mg/dL (8.5-10.1) L 11/14/23 04:13 Phosphorus 0.5 mg/dL (2.6-4.7) L 11/14/23 04:13 Magnesium 1.7 mg/dL (2.0-2.9) L 11/14/23 04:13 Total Bilirubin 0.30 mg/dL (0.2-1.0) 11/14/23 04:13 AST 19 Units/L (15-37) 11/14/23 04:13 ALT 21 Units/L (12-78) 11/14/23 04:13 Alkaline Phosphatase 66 Units/L (46-116) 11/14/23 04:13 Creatine Kinase 33 Units/L (39-308) L 11/07/23 19:09 Troponin I High Sens 4.8 ng/L (4.0-60.0) 11/07/23 19:09 B-Natriuretic Peptide 83.0 pg/mL (0-79) H 11/07/23 19:09 Total Protein 5.7 g/dL (6.4-8.2) L 11/14/23 04:13 Albumin 3.2 g/dL (3.4-5.0) L 11/14/23 04:13 Globulin 2.5 g/dL (2.5-4.5) 11/14/23 04:13 Albumin/Globulin Ratio 1.3 Ratio (1.1-2.1) 11/14/23 04:13 Prealbumin 10.9 mg/dL (18-35.7) L 11/09/23 05:02 Triglycerides 56 mg/dL (0-150) 11/14/23 04:13 Amylase 81 Units/L (25-115) 11/07/23 19:09 Lipase < 6 Units/L (16-77) L 11/07/23 19:09 Specimen Type Clean catch urine 11/07/23 22:50 Urine Color Dark yellow (YELLOW) 11/07/23 22:50 Urine Appearance Clear (CLEAR) 11/07/23 22:50 Urine pH 6.0 (5.0 - 8.0) 11/07/23 22:50 Ur Specific Icard 1.010 (1.000-1.030) 11/07/23 22:50 Urine Protein Negative (NEGATIVE) 11/07/23 22:50 Urine Glucose (UA) Negative (NEGATIVE) 11/07/23 22:50 Urine Ketones Negative (NEGATIVE) 11/07/23 22:50 Urine Blood Negative (NEGATIVE) 11/07/23 22:50 Urine Nitrite Negative (NEGATIVE) 11/07/23 22:50 Urine Bilirubin Negative (NEGATIVE) 11/07/23 22:50 Urine Urobilinogen Normal (NORMAL) 11/07/23 22:50 Ur Leukocyte Esterase Negative (NEGATIVE) 11/07/23 22:50 Vancomycin Trough 11.9 ug/mL (15-20) L 11/13/23 21:40 - Plan (1) Cellulitis of jaw, right Status: Acute Plan: NORMAL SALINE AT KVO, TPN AT 63 ML/HR, ALBUMIN 25% IV DAILY, VANCOMYCIN 750MG IV BID, LEVAQUIN 500MG IV DAILY, ZOFRAN 4MG IV Q8H PRN, OTBS ACHS, HUMULIN R SLIDING SCALE, MORPHINE SULFATE 2MG IV Q4H PRN. HIS HOME MEDICATIONS OF NORVASC, LIPITOR, PEPCID, FOLIC ACID, LASIX, MAG OX, MEGACE, PERCOCET, PROTONIX, MICRO K, CARAFATE, AND FLOMAX WERE RESUMED. (2) Dehydration Status: Acute (3) Generalized weakness Status: Acute (4) Hypokalemia Status: Acute (5) Hypomagnesemia Status: Acute (6) Anemia Status: Chronic Qualifiers: Anemia type: iron deficiency Iron deficiency anemia type: unspecified iron deficiency Qualified Code(s): D50.9 - Iron deficiency anemia, unspecified (7) BPH (benign prostatic hyperplasia) Status: Chronic Qualifiers: Lower urinary tract symptom presence: symptoms absent (8) Gastroesophageal reflux disease Status: Chronic Qualifiers: Esophagitis presence: with esophagitis Esophagitis bleeding: unspecified whether hemorrhage Qualified Code(s): K21.00 - Gastro-esophageal reflux disease with esophagitis, without bleeding (9) Hyperlipidemia Status: Chronic Qualifiers: Hyperlipidemia type: mixed hyperlipidemia (10) Adenocarcinoma of lung Status: Acute Qualifiers: Laterality: left Qualified Code(s): C34.92 - Malignant neoplasm of unspecified part of left bronchus or lung
[2023-11-14] MEDS: VSL#3 PROBIOTIC CAP 112.5 B PO SCH (11:46)
[2023-11-14] MEDS: LEVAQUIN PREMIX IV 500 MG 500 MG/100 ML BAG IV SCH (11:47)
[2023-11-14 23:18] VITALS: RESP 18
[2023-11-15] MEDS: COLACE CAP 100 MG PO PRN (00:22)
[2023-11-15] MEDS ORDERED: HIBICLENS WASH ONE (03:00)
[2023-11-15] MEDS: HIBICLENS WASH EXT ONE (03:19)
[2023-11-15 06:19] LABS: BASOPHILS # (AUTO) 0.1 X10^3/uL (0.0-0.1); BASOPHILS % (AUTO) 0.7 % (0.2-1.0); EOSINOPHILS # (AUTO) 0.1 x10^3/uL (0.0-0.2); EOSINOPHILS % (AUTO) 0.8 % (0.9-2.9); HEMATOCRIT 26.5 % (42.0-54.0); LYMPHOCYTES # (AUTO) 2.3 X10^3/uL (1.3-2.9); LYMPHOCYTES % (AUTO) 28.2 % (21.0-51.0); MEAN CORPUSCULAR HEMOGLOBIN 31.7 pg (27.0-34.0); MEAN CORPUSCULAR HGB CONC 34.1 g/dL (33.0-35.0); MEAN PLATELET VOLUME 10.1 fL (7.4-11.0); MONOCYTES # (AUTO) 0.9 x10^3/uL (0.3-0.8); MONOCYTES % (AUTO) 11.3 % (0.0-13.0); NEUTROPHILS # (AUTO) 4.9 x10^3/uL (2.2-4.8); PLATELET COUNT 103 X10^3/uL (150.0-450.0); RED BLOOD COUNT 2.85 X10^6/uL (4.7-6.0); RED CELL DISTRIBUTION WIDTH 15.6 % (11.6-16.5); WHITE BLOOD COUNT 8.2 X10^3/uL (3.6-10.0)
[2023-11-15 06:27] LABS: ALANINE AMINOTRANSFERASE 18 Units/L (12-78); ALBUMIN 3.5 g/dL (3.4-5.0); ALKALINE PHOSPHATASE 84 Units/L (46-116); ASPARTATE AMINO TRANSFERASE 18 Units/L (15-37); BLOOD UREA NITROGEN 7 mg/dL (7-18); CALCIUM 7.7 mg/dL (8.5-10.1); CARBON DIOXIDE 18.7 mmol/L (21-32); CHLORIDE 112 mmol/L (98-107); COR NA(FOR HYPERGLY) 145 mmol/L (136-145); CREATININE 0.58 mg/dL (0.70-1.30); GLUCOSE 129 mg/dL (65-99); MAGNESIUM 1.8 mg/dL (2.0-2.9); POTASSIUM 3.7 mmol/L (3.5-5.1); SODIUM 144 mmol/L (136-145); TOTAL PROTEIN 6.2 g/dL (6.4-8.2); eGFR NON BLACK RACES > 60 (>60)
[2023-11-15] MEDS ORDERED: CONSULT PHARMACY - POTASSIUM & MAGNESIUM XX SCH (07:00)
[2023-11-15] MEDS: MAGNESIUM SULFATE 1 GRAM/100 mL PREMIX 1 G/100 ML BAG IV SCH (08:21)
[2023-11-15] MEDS: NS 1,000 ML IV 1,000 ML ONE (09:07)
[2023-11-15] MEDS: VERSED ONE (09:40)
[2023-11-15] MEDS: POLYMYXIN B SULFATE ONE (09:50)
[2023-11-15] MEDS: XYLOCAINE 1 % (PLAIN) ONE ×2 (09:50→09:57)
--- NOTE | 2023-11-15 11:23 | RAD ---
EXAM: CHEST, 1 VIEW HISTORY: port a cath placement; COMPARISON: No relevant prior studies were available for comparison at the time of interpretation. TECHNIQUE: CHEST, 1 VIEW FINDINGS: Chest: Lines and tubes: Left-sided implanted port with catheter tip in satisfactory position Mediastinum: Cardiac and mediastinal shadow is within normal limits for size and contour. Pulmonary vessels: No pulmonary vascular congestion. Lung sweet: No suspicious airspace opacity. Pleura: No effusion. No pneumothorax. Bones and soft tissues: No acute osseous or soft tissue abnormality. IMPRESSION: 1. No acute cardiopulmonary abnormality 2. Satisfactory position of implanted catheter. THIS IS AN ELECTRONICALLY VERIFIED FINAL REPORT 11/15/2023 11:19 AM - Electronically signed by Kenny Pang MD
[2023-11-15] MEDS: VANCOMYCIN IV *PREMIX 1.5 G/300 ML BAG 1.5 G/300 ML PIGGYBACK IV SCH (12:26)
[2023-11-15 14:08] VITALS: BP 134/83; PULSE 85; TEMP 96.7; O2SAT 98
[2023-11-16] MEDS ORDERED: PHARMACY COMMENT IV ONE (08:30)
== END 2023-11-15 13:50 | disposition home health service (06) | DRG 641 ==
LOC: MED/SURG → OBSVTOIN 18:00 → INTOOBSV 18:00
PROVIDERS: ADMIT Internal Medicine; ATTEND Internal Medicine
DX: R53.1 Weakness; C34.12 Malignant neoplasm of upper lobe, left bronchus or lung; E83.42 Hypomagnesemia; N40.0 Benign prostatic hyperplasia without lower urinary tract symptoms; R06.02 Shortness of breath; E86.0 Dehydration; R60.0 Localized edema; D50.8 Other iron deficiency anemias; I87.2 Venous insufficiency (chronic) (peripheral); E11.65 Type 2 diabetes mellitus with hyperglycemia; E78.5 Hyperlipidemia, unspecified; E87.6 Hypokalemia; K21.00 Gastro-esophageal reflux disease with esophagitis, without bleeding; L03.211 Cellulitis of face

== ENCOUNTER 2024-03-10 15:30 | Observation (INO) ==
--- NOTE | 2024-03-10 16:04 | DR.GENAD ---
HPI Time Seen Time Seen by Provider: 03/10/24 16:03 PCP Primary Care Physician: Love Millan Complaint/Symptoms Chief Complaint Doctors Comments: 68 y/o male presents for evaluation. Patient was diagnosed with lung cancer approximately 6 months ago, underwent CyberKnife. He is now having generalized weakness, low back and bilateral leg pain. Pain w orse of the L hip region. Has an occasional cough, no shortness of breath. Denies sinus congestion, fevers, chills, sore throat. Denies bowel or bladder issues. Appetite has been fair. Chief Complaint:: Pt states PCP sent him to ER d/t "I'm real weak, my hip hurts, the center of my low back hurts and I can't walk". Pt states back pain is center of low back and radiates to left hip. Pain is worse with standing and walking (10/10), lessened when he is sitting (4/10). Pt states usually he can ambulate with his cane but at present he is not able to walk at all d/t pain. Pt describes pain at "stabbing". Pt denies dysuria, constipation, n/v/d. Pt took a pain pill earlier this morning and states "it didn't help much". Self Treatment fo Chief Complaint: Pt has left chest wall PAC; sent to ER per PCP COVID-19 Coronavirus risk:travel/contact w/high risk person: No Has patient experienced Coronavirus symptoms: No Nurses notes reviewed Nurses Notes Review: Yes Source History Provided: Patient Mode of Arrival Mode of Arrival: Wheelchair Timing Onset of Chief Complaint: 03/10/24 PMH PMH Past Medical History: Yes Past Medical History: Anemia, Dyslipidemia, GERD and Hypertension Past Medical History Comment: chronic pancreatitis, lung cancer Past Surgical History: Yes Surgical History: Joint Replacement and Ortho Surgery Family History History of Family Medical Conditions: Yes Family Medical History: Diabetes Mellitus and Hypertension Social History Does patient currently use any type of tobacco product: Yes Have you used tobacco products in the last 12 months: Yes Type of Tobacco Use: Cigarettes Does any household member use tobacco: No Alcohol Use: DAILY Do you use any recreational Drugs:: No Lives With: Spouse Lives Where: Home Travel Risk Coronavirus risk:travel/contact w/high risk person: No Has patient experienced Coronavirus symptoms: No Infectious screening In the last 2 months have you had wt loss of >10#?: NO Have you had fever, night sweats or hemotysis?: No Have you traveled outside the country in the last 6 months?: No Isolation: Reverse ROS Review of Systems Constitutional: Weakness Eyes: No Symptoms Reported ENTM: No Symptoms Reported Respiratoy: Dry Cough Cardiovascular: No Symptoms Reported Gastrointestinal/Abdominal: No Symptoms Reported Genitourinary: No Symptoms Reported Neurological: Weakness Musculoskeletal: Back Pain and Leg Integumentary: No Symptoms Reported Hematologic/Lymphatic: No Symptoms Reported All Other Systems: Reviewed and Negative PE Vital Signs Vitals: Vital Signs Temperature 98.1 F Pulse Rate 62 Pulse Rate 61 Pulse Rate 59 Pulse Rate 59 Pulse Rate 59 Pulse Rate 57 Pulse Rate 66 Pulse Rate 72 Pulse Rate 71 Pulse Rate 64 Pulse Rate 72 Pulse Rate 76 Pulse Rate 71 Pulse Rate 72 Pulse Rate 91 Respiratory Rate 10 Respiratory Rate 9 Respiratory Rate 9 Respiratory Rate 10 Respiratory Rate 10 Respiratory Rate 25 Respiratory Rate 15 Respiratory Rate 11 Respiratory Rate 26 Respiratory Rate 14 Respiratory Rate 21 Respiratory Rate 20 Respiratory Rate 18 Respiratory Rate 17 Respiratory Rate 12 Respiratory Rate 14 Blood Pressure 147/89 Blood Pressure 154/87 Blood Pressure 135/86 Blood Pressure 143/88 Blood Pressure 117/79 Blood Pressure 119/84 Blood Pressure 99/66 O2 Sat by Pulse Oximetry 100 O2 Sat by Pulse Oximetry 100 O2 Sat by Pulse Oximetry 100 O2 Sat by Pulse Oximetry 100 O2 Sat by Pulse Oximetry 100 O2 Sat by Pulse Oximetry 100 O2 Sat by Pulse Oximetry 100 O2 Sat by Pulse Oximetry 100 O2 Sat by Pulse Oximetry 100 O2 Sat by Pulse Oximetry 100 O2 Sat by Pulse Oximetry 100 O2 Sat by Pulse Oximetry 100 O2 Sat by Pulse Oximetry 98 General General Appearance: Alert, In No Apparent Distress and Cachectic Eyes Eye exam: PERRL and EOMI ENT ENT Exam: Normal Oropharynx and Mucous Membranes Moist Neck Neck Exam: Normal Inspection and Full ROM; negative Tenderness Respiratory Respiratory Exam: Normal Lung Sounds Bilat; negative Accessory Muscle Use or Respiratory Distress Cardiovascular Cardiovascular Exam: Regular Rate, Normal Rhythm and Normal Heart Sounds Abdominal Exam Abdominal Exam: Normal Bowel Sounds and Soft; negative Tenderness Extremities Extremities Exam: Normal Inspection and Other (+ pain with ROM of both lower exts.); negative Edema Back Back Exam: Tenderness (lumbar region, L hip region. ) Neurologic Neurological Exam: Alert, Oriented X3 and CN II-XII Intact; negative Motor Sensory Deficit Skin Skin Exam: Warm and Dry COURSE Treatment Treatment: Workup initiated. Patient given IV fluids. Given IV morphine/Zofran for pain. 1909 -BP was low on arrival, better when patient got back into the room. Patient was given IV fluids. CBC shows mild anemia, globin 10.6. Has normal white count 6.9, no bands reported. Basic chemistry is acceptable. Patient does have low albumin at 1.4, low magnesium at 1.5. Chest x-ray without acute abnormalities, no obvious carcinoma present. Lactic acid elevated at 3.3, no obvious source of infection yet.. 2-hour repeat shows lower lactic at 2.9 after IV fluids. Patient has been unable to give a urine.. Give dose of IV Rocephin for prophylaxis. Continue IV fluids.. Patient presented to Dr. Weinberg, covering for his physician.. Will admit the patient for generalized weakness, malnutrition, hypomagnesemia, and elevated lactic acid. ROR Labs Reviewed Laboratory Results Reviewed?: Yes 03/10/24 16:35 03/10/24 16:35 Laboratory: WBC 6.9 X10^3/uL (3.6-10.0) 03/10/24 16:35 RBC 3.48 X10^6/uL (4.7-6.0) L 03/10/24 16:35 Hgb 10.6 g/dL (13.5-18.0) L 03/10/24 16:35 Hct 31.6 % (42.0-54.0) L 03/10/24 16:35 MCV 90.8 fL (80.0-100.0) 03/10/24 16:35 MCH 30.5 pg (27.0-34.0) 03/10/24 16:35 MCHC 33.6 g/dL (33.0-35.0) 03/10/24 16:35 RDW 15.7 % (11.6-16.5) 03/10/24 16:35 Plt Count 95 X10^3/uL (150.0-450.0) L 03/10/24 16:35 MPV 9.6 fL (7.4-11.0) 03/10/24 16:35 Neut % (Auto) 63.7 % (42.0-75.0) 03/10/24 16:35 Lymph % (Auto) 26.2 % (21.0-51.0) 03/10/24 16:35 Mitchell % (Auto) 6.6 % (0.0-13.0) 03/10/24 16:35 Eos % (Auto) 0.2 % (0.9-2.9) L 03/10/24 16:35 Baso % (Auto) 3.3 % (0.2-1.0) H 03/10/24 16:35 Neut # (Auto) 4.4 x10^3/uL (2.2-4.8) 03/10/24 16:35 Lymph # (Auto) 1.8 X10^3/uL (1.3-2.9) 03/10/24 16:35 Mitchell # (Auto) 0.5 x10^3/uL (0.3-0.8) 03/10/24 16:35 Eos # (Auto) 0.0 x10^3/uL (0.0-0.2) 03/10/24 16:35 Baso # (Auto) 0.2 X10^3/uL (0.0-0.1) H 03/10/24 16:35 Absolute Nucleated RBC 0.0 /100WBC 03/10/24 16:35 Sodium 145 mmol/L (136-145) 03/10/24 16:35 Corrected Sodium 146 mmol/L (136-145) H 03/10/24 16:35 Potassium 3.7 mmol/L (3.5-5.1) 03/10/24 16:35 Chloride 112 mmol/L (98-107) H 03/10/24 16:35 Carbon Dioxide 26.1 mmol/L (21-32) 03/10/24 16:35 BUN 4 mg/dL (7-18) L 03/10/24 16:35 Creatinine 0.96 mg/dL (0.70-1.30) 03/10/24 16:35 Est GFR (MDRD) Af Amer > 60 (>60) 03/10/24 16:35 Est GFR (MDRD) Non-Af > 60 (>60) 03/10/24 16:35 Glucose 147 mg/dL (65-99) H 03/10/24 16:35 Lactic Acid 2.9 mmol/L (0.4-2.0) H 03/10/24 18:25 Calcium 7.0 mg/dL (8.5-10.1) L 03/10/24 16:35 Corrected Calcium 9.1 mg/dL (8.5-10.1) 03/10/24 16:35 Magnesium 1.5 mg/dL (2.0-2.9) L 03/10/24 16:35 Total Bilirubin 0.60 mg/dL (0.2-1.0) 03/10/24 16:35 AST 53 Units/L (15-37) H 03/10/24 16:35 ALT 28 Units/L (12-78) 03/10/24 16:35 Alkaline Phosphatase 112 Units/L (46-116) 03/10/24 16:35 Creatine Kinase 191 Units/L (39-308) 03/10/24 16:35 Total Protein 4.1 g/dL (6.4-8.2) L 03/10/24 16:35 Albumin 1.4 g/dL (3.4-5.0) L 03/10/24 16:35 Globulin 2.7 g/dL (2.5-4.5) 03/10/24 16:35 Albumin/Globulin Ratio 0.5 Ratio (1.1-2.1) L 03/10/24 16:35 Lipase < 6 Units/L (16-77) L 03/10/24 16:35 XRAY XRAY Interpreted by: Self X-ray Results: Chest x-ray, left hip, lumbar spine without acute abnormalities. Has chronic changes Opioid Opioid Risk Tool Age ([place] box if 16-45): No History of Preadolescent Sexual Abuse: No Total: 0 Total Score Risk Category: Low Risk Copyright: Jonathon PARK predicting aberrant behaviors Discharge Plan Diagnosis Discharge Problem: Generalized weakness, Hypomagnesemia, Malnutrition, Elevated lactic acid level Discharge Plan Patient Disposition: 09 ADMITTED INPATIENT Condition: Stable Orders to Discharge Patient Discharge Orders: Transfer (Routine); Ordered 03/10/24 Ordered By: Darrell Seo
[2024-03-10] MEDS: NS 500 ML IV 500 ML IV ONE (16:47)
[2024-03-10 16:54] LABS: BASOPHILS # (AUTO) 0.2 X10^3/uL (0.0-0.1); BASOPHILS % (AUTO) 3.3 % (0.2-1.0); EOSINOPHILS % (AUTO) 0.2 % (0.9-2.9); HEMATOCRIT 31.6 % (42.0-54.0); HEMOGLOBIN 10.6 g/dL (13.5-18.0); LYMPHOCYTES # (AUTO) 1.8 X10^3/uL (1.3-2.9); LYMPHOCYTES % (AUTO) 26.2 % (21.0-51.0); MEAN CORPUSCULAR HEMOGLOBIN 30.5 pg (27.0-34.0); MEAN CORPUSCULAR HGB CONC 33.6 g/dL (33.0-35.0); MEAN CORPUSCULAR VOLUME 90.8 fL (80.0-100.0); MEAN PLATELET VOLUME 9.6 fL (7.4-11.0); MONOCYTES # (AUTO) 0.5 x10^3/uL (0.3-0.8); MONOCYTES % (AUTO) 6.6 % (0.0-13.0); NEUTROPHILS # (AUTO) 4.4 x10^3/uL (2.2-4.8); NEUTROPHILS % (AUTO) 63.7 % (42.0-75.0); PLATELET COUNT 95 X10^3/uL (150.0-450.0); RED BLOOD COUNT 3.48 X10^6/uL (4.7-6.0); RED CELL DISTRIBUTION WIDTH 15.7 % (11.6-16.5); WHITE BLOOD COUNT 6.9 X10^3/uL (3.6-10.0)
[2024-03-10] MEDS: ZOFRAN INJ 4 MG VIAL IVP ONE (16:56)
[2024-03-10] MEDS: MORPHINE SULFATE INJ 4 MG IVP ONE (16:57)
[2024-03-10 17:04] LABS: ALANINE AMINOTRANSFERASE 28 Units/L (12-78); ALBUMIN 1.4 g/dL (3.4-5.0); ALKALINE PHOSPHATASE 112 Units/L (46-116); ASPARTATE AMINO TRANSFERASE 53 Units/L (15-37); BLOOD UREA NITROGEN 4 mg/dL (7-18); CARBON DIOXIDE 26.1 mmol/L (21-32); CHLORIDE 112 mmol/L (98-107); COR CA(FOR HYPOALB) 9.1 mg/dL (8.5-10.1); COR NA(FOR HYPERGLY) 146 mmol/L (136-145); CREATINE KINASE 191 Units/L (39-308); CREATININE 0.96 mg/dL (0.70-1.30); GLUCOSE 147 mg/dL (65-99); LIPASE < 6 Units/L (16-77); MAGNESIUM 1.5 mg/dL (2.0-2.9); POTASSIUM 3.7 mmol/L (3.5-5.1); SODIUM 145 mmol/L (136-145); TOTAL PROTEIN 4.1 g/dL (6.4-8.2); eGFR NON BLACK RACES > 60 (>60)
[2024-03-10] MEDS: MAGNESIUM SULFATE 1 GRAM/100 mL PREMIX 1 G/100 ML BAG IV ONE (17:28)
[2024-03-10] MEDS ORDERED: ROCEPHIN VIAL 1 GRAM ONE (19:04)
[2024-03-10] MEDS: ROCEPHIN VIAL 1 GRAM IVP SCH (19:07)
--- NOTE | 2024-03-10 20:19 | RAD ---
EXAM:CHEST, 1 VIEWHISTORY:"I'm real weak, my hip hurts, the center of my low back hurts and I can't walk". Pt states back pain is center of low back and radiates to left hip.;COMPARISON:11/15/2023.TECHNIQUE:Fro ntal view of the chestFINDINGS:Heart size is normal. The aorta is tortuous. There is some mild stable stranding in the right midlung and there is a stable soft tissue nodule with spiculation in the left upper lobe measuring a proximally 1.8 cm diameter. There is no pleural effusion.IMPRESSION:Nothing acute. Stable left upper lobe mass.THIS IS AN ELECTRONICALLY VERIFIED FINAL REPORT03/10/2024 8:16 PM - Electronically signed by Benji James MD
[2024-03-10] MEDS ORDERED: ROCEPHIN VIAL 1 GRAM 1 G in NS 100 ML IV 100 ML IV SCH (20:54)
[2024-03-10] MEDS ORDERED: CONSULT PHARMACY - POTASSIUM & MAGNESIUM XX SCH (20:54)
[2024-03-10] MEDS ORDERED: PATIENT'S HOME MEDICATION (Oxycodone-Acetaminophen 10-325 mg tablet) PO PRN (20:54)
[2024-03-10] MEDS: FLOMAX PO SCH (21:58)
[2024-03-10] MEDS: LR 1,000 ML IV 1,000 ML IV SCH (21:58)
[2024-03-10] MEDS: MAG-OX TAB PO SCH (21:58)
[2024-03-10] MEDS: K-DUR TAB 20 MEQ PO SCH (21:59)
[2024-03-10] MEDS: MORPHINE SULFATE INJ 4 MG IVP PRN (23:55)
[2024-03-11] MEDS: PERCOCET TAB 5/325 MG PO PRN (04:24)
[2024-03-11 04:37] LABS: BILIRUBIN,URINE NEGATIVE (NEGATIVE); BLOOD/HEMOGLOBIN,URINE NEGATIVE (NEGATIVE); GLUCOSE, URINE NEGATIVE (NEGATIVE); KETONES,URINE NEGATIVE (NEGATIVE); LEUKOCYTE ESTERASE ,URINE NEGATIVE (NEGATIVE); NITRITES,URINE NEGATIVE (NEGATIVE); PROTEIN,URINE NEGATIVE (NEGATIVE); UROBILINOGEN,URINE NORMAL (NORMAL)
[2024-03-11 04:41] LABS: APPEARANCE,URINE CLEAR (CLEAR); COLOR,URINE DARK YELLOW (YELLOW)
[2024-03-11 04:50] LABS: BASOPHILS % (AUTO) 0.5 % (0.2-1.0); EOSINOPHILS % (AUTO) 0.5 % (0.9-2.9); HEMATOCRIT 29.3 % (42.0-54.0); HEMOGLOBIN 9.7 g/dL (13.5-18.0); LYMPHOCYTES # (AUTO) 2.3 X10^3/uL (1.3-2.9); LYMPHOCYTES % (AUTO) 33.4 % (21.0-51.0); MEAN CORPUSCULAR HEMOGLOBIN 29.9 pg (27.0-34.0); MEAN CORPUSCULAR VOLUME 90.8 fL (80.0-100.0); MEAN PLATELET VOLUME 10.1 fL (7.4-11.0); MONOCYTES # (AUTO) 0.6 x10^3/uL (0.3-0.8); MONOCYTES % (AUTO) 8.8 % (0.0-13.0); NEUTROPHILS # (AUTO) 3.9 x10^3/uL (2.2-4.8); NEUTROPHILS % (AUTO) 56.8 % (42.0-75.0); PLATELET COUNT 85 X10^3/uL (150.0-450.0); RED BLOOD COUNT 3.23 X10^6/uL (4.7-6.0); RED CELL DISTRIBUTION WIDTH 15.6 % (11.6-16.5); WHITE BLOOD COUNT 6.8 X10^3/uL (3.6-10.0)
[2024-03-11 05:01] LABS: ALANINE AMINOTRANSFERASE 24 Units/L (12-78); ALBUMIN 1.2 g/dL (3.4-5.0); ALKALINE PHOSPHATASE 101 Units/L (46-116); ASPARTATE AMINO TRANSFERASE 48 Units/L (15-37); BLOOD UREA NITROGEN 3 mg/dL (7-18); CALCIUM 6.8 mg/dL (8.5-10.1); CARBON DIOXIDE 27.8 mmol/L (21-32); CHLORIDE 114 mmol/L (98-107); COR NA(FOR HYPERGLY) 147 mmol/L (136-145); CREATININE 0.73 mg/dL (0.70-1.30); GLUCOSE 205 mg/dL (65-99); MAGNESIUM 1.7 mg/dL (2.0-2.9); SODIUM 144 mmol/L (136-145); TOTAL PROTEIN 3.7 g/dL (6.4-8.2); eGFR NON BLACK RACES > 60 (>60)
--- NOTE | 2024-03-11 05:37 | RAD ---
EXAM: HIP, LEFT two-view HISTORY: "I'm real weak, my hip hurts, the center of my low back hurts and I can't walk". Pt states back pain is center of low back and radiates to left hip.; COMPARISON: None FINDINGS: The pelvic ring is intact. No acute fracture or dislocation of the hip. Partially visualized ORIF roque rdware overlying the left hip. Frog leg views of the hip demonstrate no evidence for fracture. Mild left hip osteoarthrosis. Right hip arthroplasty hardware. IMPRESSION: No acute fracture or dislocation. THIS IS AN ELECTRONICALLY VERIFIED FINAL REPORT 03/11/2024 5:34 AM - Electronically signed by Jean Rodrigez MD
--- NOTE | 2024-03-11 05:38 | RAD ---
EXAM:LUMBAR SPINE, AP/LATHISTORY:"I'm real weak, my hip hurts, the center of my low back hurts and I can't walk". Pt states back pain is center of low back and radiates to left hip.;COMPARISON:NoneFINDINGS:Mild lumbar dextrocurvature.Moderate multilevel spinal degenerative changes.No acute fracture in the visualized spine.No acute soft tissue abnormality.IMPRESSION:Lumbar spine degenerative changes without acute fracture.THIS IS AN ELECTRONICALLY VERIFIED FINAL REPORT03/11/2024 5:34 AM - Electronically signed by Jean Rodrigez MD
[2024-03-11] MEDS ORDERED: CONSULT PHARMACY - POTASSIUM & MAGNESIUM XX SCH (07:00)
[2024-03-11] MEDS: MAG-OX TAB PO SCH (08:19)
[2024-03-11] MEDS: PROTONIX TAB 40 MG PO SCH (08:20)
[2024-03-11] MEDS: FOLIC ACID TAB 1 MG PO SCH (08:20)
[2024-03-11] MEDS: LIPITOR TAB 40 MG PO SCH (08:20)
--- NOTE | 2024-03-11 10:07 | DR.H&P ---
H&P History & Physical for Day of: H&P Date: 03/11/24 Chief Complaint Chief Complaint: back and hip pain, weakness History of Present Illness History of Present Illness: Mr Colon is a 68y/o male with a PMH of Lung cancer, HLD, GERD, BPH and chronic pancreatitis presented with generalized weakness, right hip and back pain. He states he has had these symptoms for 3-4 months. He is a poor historian and not able to provide details. He states he went to [place] [facility] last week and had tests done. He was told everything looked fi ne and discharged him. He states he continued to have weakness in his legs so he came to the ER. ER work up showed elevated lactic acid, low mag. CXR, hip XR and lumbar XR did not show any acute process. He was started on fluids and mag replacement. His lactic acid was 3.3, trended down to 2.5. UA (-). He was empirically started on Rocephin. He denies any urinary symptoms, denies N/V/D or abdominal pain. He reports good appetite. Denies any recent fall or trauma. He does use a cane to ambulate. Labs/imaging reviewed -WBC 6.5 Hgb 9.7 Plt:85 K:4.0 LA:2.5 Ma.7 -UA:neg -Imaging reviewed -Blood Cx: pending Plan: Repeat lactic acid, continue hydration. Continue empiric Rocephin. Follow Cx: PT evaluation. Will obtain records from PCP or Oncology regarding patient's medical history. Also get records from [place] [facility]. Replace electrolytes as per protocol. Continue pain control. Resume home medications. Monitor AM labs/imaging. Past Medical History Past Medical History: Anemia, Dyslipidemia, GERD and Hypertension Additional Medical History: BPH, CHRONIC PANCREATITIS, ESOPHAGEAL STRICTURE, ALCOHOL DEPENDENCE Past Surgical History Surgical History: Joint Replacement and Ortho Surgery Additional Surgical History: HIP REPLACEMENT, SARAH IN LEFT LEG Family History Family Medical History: Cancer Social History Does patient currently use any type of tobacco product: Yes Have you used tobacco products in the last 12 months: Yes Type of Tobacco Use: Cigarettes How many years tobacco product used: 45 Does any household member use tobacco: Yes Alcohol Use: Occasionally Drug Use: None Medications Home Medications: Home Medications Medication Instructions Recorded Confirmed Type atorvastatin 40 mg tablet 40 mg PO QDAY 01/08/23 03/10/24 History folic acid 1 mg tablet 1 mg PO QDAY 01/08/23 03/10/24 History tamsulosin 0.4 mg capsule 0.4 mg PO QHS 05/07/23 03/10/24 History oxycodone-acetaminophen 10 mg-325 1 tab PO QID PRN 11/07/23 03/10/24 History mg tablet famotidine 20 mg tablet 20 mg PO BID 03/10/24 03/10/24 History pantoprazole 40 mg tablet,delayed 40 mg PO DAILY 03/10/24 03/10/24 History release (Protonix) Allergies Allergies Allergy/AdvReac Type Severity Reaction Status Date / Time Penicillins Allergy Verified 03/10/24 15:52 Labs 03/11/24 04:15 03/11/24 04:15 Labs: Laboratory WBC 6.8 X10^3/uL (3.6-10.0) 03/11/24 04:15 RBC 3.23 X10^6/uL (4.7-6.0) L 03/11/24 04:15 Hgb 9.7 g/dL (13.5-18.0) L 03/11/24 04:15 Hct 29.3 % (42.0-54.0) L 03/11/24 04:15 MCV 90.8 fL (80.0-100.0) 03/11/24 04:15 MCH 29.9 pg (27.0-34.0) 03/11/24 04:15 MCHC 33.0 g/dL (33.0-35.0) 03/11/24 04:15 RDW 15.6 % (11.6-16.5) 03/11/24 04:15 Plt Count 85 X10^3/uL (150.0-450.0) L 03/11/24 04:15 MPV 10.1 fL (7.4-11.0) 03/11/24 04:15 Neut % (Auto) 56.8 % (42.0-75.0) 03/11/24 04:15 Lymph % (Auto) 33.4 % (21.0-51.0) 03/11/24 04:15 [place] % (Auto) 8.8 % (0.0-13.0) 03/11/24 04:15 Eos % (Auto) 0.5 % (0.9-2.9) L 03/11/24 04:15 Baso % (Auto) 0.5 % (0.2-1.0) 03/11/24 04:15 Neut # (Auto) 3.9 x10^3/uL (2.2-4.8) 03/11/24 04:15 Lymph # (Auto) 2.3 X10^3/uL (1.3-2.9) 03/11/24 04:15 [place] # (Auto) 0.6 x10^3/uL (0.3-0.8) 03/11/24 04:15 Eos # (Auto) 0.0 x10^3/uL (0.0-0.2) 03/11/24 04:15 Baso # (Auto) 0.0 X10^3/uL (0.0-0.1) 03/11/24 04:15 Absolute Nucleated RBC 0.1 /100WBC 03/11/24 04:15 Sodium 144 mmol/L (136-145) 03/11/24 04:15 Corrected Sodium 147 mmol/L (136-145) H 03/11/24 04:15 Potassium 4.0 mmol/L (3.5-5.1) 03/11/24 04:15 Chloride 114 mmol/L (98-107) H 03/11/24 04:15 Carbon Dioxide 27.8 mmol/L (21-32) 03/11/24 04:15 BUN 3 mg/dL (7-18) L 03/11/24 04:15 Creatinine 0.73 mg/dL (0.70-1.30) 03/11/24 04:15 Est GFR (MDRD) Af Amer > 60 (>60) 03/11/24 04:15 Est GFR (MDRD) Non-Af > 60 (>60) 03/11/24 04:15 Glucose 205 mg/dL (65-99) H 03/11/24 04:15 Lactic Acid 2.5 mmol/L (0.4-2.0) H 03/11/24 01:05 Calcium 6.8 mg/dL (8.5-10.1) L 03/11/24 04:15 Corrected Calcium 9.0 mg/dL (8.5-10.1) 03/11/24 04:15 Magnesium 1.7 mg/dL (2.0-2.9) L 03/11/24 04:15 Total Bilirubin 0.40 mg/dL (0.2-1.0) 03/11/24 04:15 AST 48 Units/L (15-37) H 03/11/24 04:15 ALT 24 Units/L (12-78) 03/11/24 04:15 Alkaline Phosphatase 101 Units/L (46-116) 03/11/24 04:15 Creatine Kinase 191 Units/L (39-308) 03/10/24 16:35 Total Protein 3.7 g/dL (6.4-8.2) L 03/11/24 04:15 Albumin 1.2 g/dL (3.4-5.0) L 03/11/24 04:15 Globulin 2.5 g/dL (2.5-4.5) 03/11/24 04:15 Albumin/Globulin Ratio 0.5 Ratio (1.1-2.1) L 03/11/24 04:15 Lipase < 6 Units/L (16-77) L 03/10/24 16:35 Specimen Type Clean catch urine 03/11/24 04:27 Urine Color Dark yellow (YELLOW) 03/11/24 04:27 Urine Appearance Clear (CLEAR) 03/11/24 04:27 Urine pH 6.0 (5.0 - 8.0) 03/11/24 04:27 Ur Specific [place] 1.020 (1.000-1.030) 03/11/24 04:27 Urine Protein Negative (NEGATIVE) 03/11/24 04:27 Urine Glucose (UA) Negative (NEGATIVE) 03/11/24 04:27 Urine Ketones Negative (NEGATIVE) 03/11/24 04:27 Urine Blood Negative (NEGATIVE) 03/11/24 04:27 Urine Nitrite Negative (NEGATIVE) 03/11/24 04:27 Urine Bilirubin Negative (NEGATIVE) 03/11/24 04:27 Urine Urobilinogen Normal (NORMAL) 03/11/24 04:27 Ur Leukocyte Esterase Negative (NEGATIVE) 03/11/24 04:27 Review of Systems Constitutional: Weakness Eyes: No Symptoms Reported ENT: No Symptoms Reported Respiratory: No Symptoms Reported Cardiovascular: No Symptoms Reported Gastrointestinal: No Symptoms Reported Genitourinary: No Symptoms Reported Musculoskeletal: Leg Pain and Other (right hip pain) Skin: No Symptoms Reported Neurological: No Symptoms Reported Physical Exam Vital Signs: Vital Signs Temperature 98.1 F Temperature 98.0 F Temperature 98.0 F Pulse Rate [Apical] 51 Pulse Rate [Apical] 53 Pulse Rate [Apical] 56 Pulse Rate [Apical] 56 Pulse Rate [Apical] 58 Pulse Rate [Apical] 68 Pulse Rate 86 Pulse Rate 73 Respiratory Rate 13 Respiratory Rate 15 Respiratory Rate 20 Respiratory Rate 14 Respiratory Rate 14 Respiratory Rate 16 Respiratory Rate 14 Respiratory Rate 12 Respiratory Rate 12 Respiratory Rate 14 Respiratory Rate 13 Blood Pressure [Left Arm] 142/86 Blood Pressure [Left Arm] 142/86 Blood Pressure [Left Arm] 128/82 Blood Pressure [Left Arm] 128/82 Blood Pressure [Left Arm] 110/75 Blood Pressure [Left Arm] 126/77 Blood Pressure 141/83 Blood Pressure 149/86 O2 Sat by Pulse Oximetry 96 O2 Sat by Pulse Oximetry 100 O2 Sat by Pulse Oximetry 100 O2 Sat by Pulse Oximetry 100 O2 Sat by Pulse Oximetry 100 O2 Sat by Pulse Oximetry 100 O2 Sat by Pulse Oximetry 100 O2 Sat by Pulse Oximetry 100 Oriented: Normal Eyes: Normal Throat: Normal Respiratory: Clear Throughout Cardiovascular: Normal Auscultation: Bowel Sounds: Normal Palpation: Normal Tenderness: Normal Skin: Decreased [place] Musculoskeletal: Right, Hip, Leg and Motor Deficit Psychiatric: Normal Mood Description: Calm Affect: Normal Speech Pattern: Clear and Appropriate Assessment/Plan (1) Generalized weakness: Status: Acute (2) Hypomagnesemia: Status: Acute (3) Malnutrition: Qualifiers: Malnutrition type: unspecified type Qualified Code(s): E46 - Unspecified protein-calorie malnutrition Status: Acute (4) Elevated lactic acid level: Status: Acute (5) Adenocarcinoma of lung: Qualifiers: Laterality: left Qualified Code(s): C34.92 - Malignant neoplasm of unspecified part of left bronchus or lung Status: Acute (6) Anemia: Qualifiers: Anemia type: iron deficiency Iron deficiency anemia type: unspecified iron deficiency Qualified Code(s): D50.9 - Iron deficiency anemia, unspecified Status: Chronic (7) Lumbar degenerative disc disease: Status: Acute Review H&P Reviewed: Yes Patient was examined?: Yes
[2024-03-11] MEDS: MAGNESIUM SULFATE 1 GRAM/100 mL PREMIX 1 G/100 ML BAG IV SCH (11:12)
[2024-03-11] MEDS ORDERED: NS 250 ML IV 25 ML IV PRN (19:59)
[2024-03-11] MEDS: ROCEPHIN VIAL 1 GRAM IVP SCH (20:53)
[2024-03-12 05:16] LABS: BASOPHILS % (AUTO) 0.5 % (0.2-1.0); EOSINOPHILS # (AUTO) 0.1 x10^3/uL (0.0-0.2); HEMATOCRIT 33.8 % (42.0-54.0); HEMOGLOBIN 11.2 g/dL (13.5-18.0); LYMPHOCYTES # (AUTO) 2.2 X10^3/uL (1.3-2.9); MEAN CORPUSCULAR HEMOGLOBIN 30.2 pg (27.0-34.0); MEAN CORPUSCULAR HGB CONC 33.2 g/dL (33.0-35.0); MEAN CORPUSCULAR VOLUME 90.8 fL (80.0-100.0); MONOCYTES # (AUTO) 0.5 x10^3/uL (0.3-0.8); MONOCYTES % (AUTO) 7.4 % (0.0-13.0); NEUTROPHILS # (AUTO) 4.2 x10^3/uL (2.2-4.8); NEUTROPHILS % (AUTO) 60.1 % (42.0-75.0); PLATELET COUNT 86 X10^3/uL (150.0-450.0); RED BLOOD COUNT 3.72 X10^6/uL (4.7-6.0); RED CELL DISTRIBUTION WIDTH 16.2 % (11.6-16.5)
[2024-03-12 05:28] LABS: ALANINE AMINOTRANSFERASE 25 Units/L (12-78); ALBUMIN 1.3 g/dL (3.4-5.0); ALKALINE PHOSPHATASE 118 Units/L (46-116); ASPARTATE AMINO TRANSFERASE 45 Units/L (15-37); BLOOD UREA NITROGEN 3 mg/dL (7-18); CALCIUM 7.1 mg/dL (8.5-10.1); CARBON DIOXIDE 24.7 mmol/L (21-32); CHLORIDE 113 mmol/L (98-107); COR CA(FOR HYPOALB) 9.3 mg/dL (8.5-10.1); CREATININE 0.75 mg/dL (0.70-1.30); GLUCOSE 92 mg/dL (65-99); MAGNESIUM 1.9 mg/dL (2.0-2.9); POTASSIUM 4.4 mmol/L (3.5-5.1); SODIUM 144 mmol/L (136-145); eGFR NON BLACK RACES > 60 (>60)
[2024-03-12] MEDS ORDERED: CONSULT PHARMACY - POTASSIUM & MAGNESIUM XX SCH (07:00)
[2024-03-12] MEDS: MAG-OX TAB PO SCH (09:17)
--- NOTE | 2024-03-12 10:17 | PCM.PROG ---
Progress Note Progress Note for Day of Date of Exam: 03/12/24 Subjective Subjective: Mr Colon is a 68y/o male with a PMH of Lung cancer, HLD, GERD, BPH and chronic pancreatitis admitted for generalized weakness, right hip and back pain. This morning he is resting comfortably in bed. No acute events overnight. PT has been working with him. He is on IVF. His lactic acid is back to normal limits. He is empirically receiving Rocephin. Labs/imaging reviewed -WBC 7, Hgb 11.2, Plt:86, Na 144, K:4.4, Creatinine 0.75, Glucose 92 -Blood Cx: pending Plan: Continue hydration. Continue empiric Rocephin. Follow Cx, PT. Will obtain records from PCP or Oncology regarding patient's medical history as well as [place] [facility]. Replace electrolytes as per protocol. Continue pain control. Resume home medications. Monitor AM labs/imaging. Past Medical Family Social History Allergies: Allergies Penicillins Allergy (Verified 03/10/24 15:52) Review of Systems ROS changes noted: see HPI Vital Signs and I&O's Vital Signs: Vital Signs Temperature 97.9 F Temperature 98.0 F Pulse Rate 92 Pulse Rate 69 Respiratory Rate 16 Respiratory Rate 12 Respiratory Rate 22 Respiratory Rate 9 Blood Pressure 130/83 Blood Pressure 132/92 O2 Sat by Pulse Oximetry 93 O2 Sat by Pulse Oximetry 99 Intake and Output: Intake & Output 03/09/24 03/10/24 03/11/24 03/12/24 23:59 23:59 23:59 23:59 Intake Total 596 / 596 3841 / 3841 680 / 680 Output Total 680 / 680 280 / 280 Balance 596 / 596 3161 / 3161 400 / 400 Physical Exam Oriented: Normal Eyes: Normal Throat: Normal Respiratory: Normal Cardiovascular: Normal Auscultation: Bowel Sounds: Normal Tenderness: Normal Skin: Decreased [place] Musculoskeletal: Right, Hip, Leg and Motor Deficit Psychiatric: Normal Mood Description: Calm Affect: Normal Speech Pattern: Clear and Appropriate Laboratory and Diagnostics 03/12/24 04:50 03/12/24 04:50 Labs: 03/10/24 16:40 Blood Blood Culture - Preliminary 03/10/24 16:35 Blood Blood Culture - Preliminary Laboratory WBC 7.0 X10^3/uL (3.6-10.0) 03/12/24 04:50 RBC 3.72 X10^6/uL (4.7-6.0) L 03/12/24 04:50 Hgb 11.2 g/dL (13.5-18.0) L 03/12/24 04:50 Hct 33.8 % (42.0-54.0) L 03/12/24 04:50 MCV 90.8 fL (80.0-100.0) 03/12/24 04:50 MCH 30.2 pg (27.0-34.0) 03/12/24 04:50 MCHC 33.2 g/dL (33.0-35.0) 03/12/24 04:50 RDW 16.2 % (11.6-16.5) 03/12/24 04:50 Plt Count 86 X10^3/uL (150.0-450.0) L 03/12/24 04:50 MPV 10.0 fL (7.4-11.0) 03/12/24 04:50 Neut % (Auto) 60.1 % (42.0-75.0) 03/12/24 04:50 Lymph % (Auto) 31.0 % (21.0-51.0) 03/12/24 04:50 [place] % (Auto) 7.4 % (0.0-13.0) 03/12/24 04:50 Eos % (Auto) 1.0 % (0.9-2.9) 03/12/24 04:50 Baso % (Auto) 0.5 % (0.2-1.0) 03/12/24 04:50 Neut # (Auto) 4.2 x10^3/uL (2.2-4.8) 03/12/24 04:50 Lymph # (Auto) 2.2 X10^3/uL (1.3-2.9) 03/12/24 04:50 [place] # (Auto) 0.5 x10^3/uL (0.3-0.8) 03/12/24 04:50 Eos # (Auto) 0.1 x10^3/uL (0.0-0.2) 03/12/24 04:50 Baso # (Auto) 0.0 X10^3/uL (0.0-0.1) 03/12/24 04:50 Absolute Nucleated RBC 0.1 /100WBC 03/12/24 04:50 Sodium 144 mmol/L (136-145) 03/12/24 04:50 Corrected Sodium TNP 03/12/24 04:50 Potassium 4.4 mmol/L (3.5-5.1) 03/12/24 04:50 Chloride 113 mmol/L (98-107) H 03/12/24 04:50 Carbon Dioxide 24.7 mmol/L (21-32) 03/12/24 04:50 BUN 3 mg/dL (7-18) L 03/12/24 04:50 Creatinine 0.75 mg/dL (0.70-1.30) 03/12/24 04:50 Est GFR (MDRD) Af Amer > 60 (>60) 03/12/24 04:50 Est GFR (MDRD) Non-Af > 60 (>60) 03/12/24 04:50 Glucose 92 mg/dL (65-99) 03/12/24 04:50 Lactic Acid 1.8 mmol/L (0.4-2.0) 03/12/24 04:50 Calcium 7.1 mg/dL (8.5-10.1) L 03/12/24 04:50 Corrected Calcium 9.3 mg/dL (8.5-10.1) 03/12/24 04:50 Magnesium 1.9 mg/dL (2.0-2.9) L 03/12/24 04:50 Total Bilirubin 0.40 mg/dL (0.2-1.0) 03/12/24 04:50 AST 45 Units/L (15-37) H 03/12/24 04:50 ALT 25 Units/L (12-78) 03/12/24 04:50 Alkaline Phosphatase 118 Units/L (46-116) H 03/12/24 04:50 Creatine Kinase 191 Units/L (39-308) 03/10/24 16:35 Total Protein 4.0 g/dL (6.4-8.2) L 03/12/24 04:50 Albumin 1.3 g/dL (3.4-5.0) L 03/12/24 04:50 Globulin 2.7 g/dL (2.5-4.5) 03/12/24 04:50 Albumin/Globulin Ratio 0.5 Ratio (1.1-2.1) L 03/12/24 04:50 Lipase < 6 Units/L (16-77) L 03/10/24 16:35 Specimen Type Clean catch urine 03/11/24 04:27 Urine Color Dark yellow (YELLOW) 03/11/24 04:27 Urine Appearance Clear (CLEAR) 03/11/24 04:27 Urine pH 6.0 (5.0 - 8.0) 03/11/24 04:27 Ur Specific [place] 1.020 (1.000-1.030) 03/11/24 04:27 Urine Protein Negative (NEGATIVE) 03/11/24 04:27 Urine Glucose (UA) Negative (NEGATIVE) 03/11/24 04:27 Urine Ketones Negative (NEGATIVE) 03/11/24 04:27 Urine Blood Negative (NEGATIVE) 03/11/24 04:27 Urine Nitrite Negative (NEGATIVE) 03/11/24 04:27 Urine Bilirubin Negative (NEGATIVE) 03/11/24 04:27 Urine Urobilinogen Normal (NORMAL) 03/11/24 04:27 Ur Leukocyte Esterase Negative (NEGATIVE) 03/11/24 04:27 Plan (1) Generalized weakness: Status: Acute (2) Hypomagnesemia: Status: Acute (3) Malnutrition: Status: Acute Qualifiers: Malnutrition type: unspecified type Qualified Code(s): E46 - Unspecified protein-calorie malnutrition (4) Elevated lactic acid level: Status: Acute (5) Adenocarcinoma of lung: Status: Acute Qualifiers: Laterality: left Qualified Code(s): C34.92 - Malignant neoplasm of unspecified part of left bronchus or lung (6) Anemia: Status: Chronic Qualifiers: Anemia type: iron deficiency Iron deficiency anemia type: unspecified iron deficiency Qualified Code(s): D50.9 - Iron deficiency anemia, unspecified (7) Lumbar degenerative disc disease: Status: Acute
[2024-03-12 10:28] VITALS: BMI 17.3
[2024-03-13 04:04] VITALS: BP 106/67
[2024-03-13 05:34] LABS: BASOPHILS % (AUTO) 0.3 % (0.2-1.0); EOSINOPHILS % (AUTO) 0.3 % (0.9-2.9); HEMATOCRIT 32.6 % (42.0-54.0); HEMOGLOBIN 10.8 g/dL (13.5-18.0); LYMPHOCYTES # (AUTO) 1.7 X10^3/uL (1.3-2.9); LYMPHOCYTES % (AUTO) 17.2 % (21.0-51.0); MEAN CORPUSCULAR HEMOGLOBIN 30.1 pg (27.0-34.0); MEAN CORPUSCULAR VOLUME 91.1 fL (80.0-100.0); MEAN PLATELET VOLUME 10.8 fL (7.4-11.0); MONOCYTES # (AUTO) 0.7 x10^3/uL (0.3-0.8); MONOCYTES % (AUTO) 7.3 % (0.0-13.0); NEUTROPHILS # (AUTO) 7.4 x10^3/uL (2.2-4.8); NEUTROPHILS % (AUTO) 74.9 % (42.0-75.0); PLATELET COUNT 86 X10^3/uL (150.0-450.0); RED BLOOD COUNT 3.58 X10^6/uL (4.7-6.0); RED CELL DISTRIBUTION WIDTH 15.9 % (11.6-16.5); WHITE BLOOD COUNT 9.9 X10^3/uL (3.6-10.0)
[2024-03-13 05:56] LABS: ALANINE AMINOTRANSFERASE 26 Units/L (12-78); ALBUMIN 1.2 g/dL (3.4-5.0); ALKALINE PHOSPHATASE 106 Units/L (46-116); ASPARTATE AMINO TRANSFERASE 55 Units/L (15-37); BLOOD UREA NITROGEN 4 mg/dL (7-18); CARBON DIOXIDE 26.2 mmol/L (21-32); CHLORIDE 112 mmol/L (98-107); COR CA(FOR HYPOALB) 9.2 mg/dL (8.5-10.1); CREATININE 0.76 mg/dL (0.70-1.30); GLUCOSE 101 mg/dL (65-99); POTASSIUM 4.4 mmol/L (3.5-5.1); SODIUM 143 mmol/L (136-145); TOTAL PROTEIN 3.8 g/dL (6.4-8.2); eGFR NON BLACK RACES > 60 (>60)
[2024-03-13] MEDS: ZOFRAN INJ 4 MG VIAL IVP PRN (07:53)
[2024-03-13 08:28] VITALS: PULSE 110; TEMP 98.7; O2SAT 94
[2024-03-13 08:30] VITALS: RESP 20
--- NOTE | 2024-03-17 15:48 | W.DIS.FURT ---
Summary of Discharge Discharge Summary of Date Date of Exam: 03/13/24 Admission Date Date of Admission: 03/10/24 Admission Diagnosis Patient Problems (Updated 03/14/24 @ 14:57 by Jacinto Velasco) Generalized weakness (Acute) R53.1 Hypomagnesemia (Acute) E83.42 Malnutrition (Acute) E46 Elevated lactic acid level (Acute) R79.89 Hospital Course: Mr Colon is a 68y/o male with a PMH of Lung cancer, HLD, GERD, BPH and chronic pancreatitis admitted for generalized weakness, right hip and back pain. His hospital/treatment course included: IVF, PT has been working with him. He was empirically receiving Rocephin. Culture no growth to date. Electrolytes repleted. Pt responded well to treatments and symptoms significantly improved. He was discharged in stable condition, instructed to follow up with pcp in 1 week. Vital Signs: Vital Signs (72 hours) 03/10/24 15:31 03/10/24 15:57 03/10/24 16:00 Temperature 98.1 F Pulse Rate 91 H 72 Pulse Rate [Apical] Respiratory Rate 14 12 Blood Pressure 99/66 119/84 Blood Pressure [Left Arm] O2 Sat by Pulse Oximetry 98 100 Oxygen Delivery Method Room Air Oxygen Flow Rate FIO2% 03/10/24 16:00 03/10/24 16:15 03/10/24 16:57 Temperature Pulse Rate 71 76 Pulse Rate [Apical] Respiratory Rate 17 18 14 Blood Pressure Blood Pressure [Left Arm] O2 Sat by Pulse Oximetry 100 100 Oxygen Delivery Method Oxygen Flow Rate FIO2% 03/10/24 16:30 03/10/24 16:30 03/10/24 16:45 Temperature Pulse Rate 72 64 Pulse Rate [Apical] Respiratory Rate 20 21 Blood Pressure 117/79 Blood Pressure [Left Arm] O2 Sat by Pulse Oximetry 100 100 Oxygen Delivery Method Oxygen Flow Rate FIO2% 03/10/24 17:00 03/10/24 17:00 03/10/24 17:15 Temperature Pulse Rate 71 72 Pulse Rate [Apical] Respiratory Rate 26 H 11 L Blood Pressure 143/88 Blood Pressure [Left Arm] O2 Sat by Pulse Oximetry 100 Oxygen Delivery Method Oxygen Flow Rate FIO2% 03/10/24 17:30 03/10/24 17:30 03/10/24 17:45 Temperature Pulse Rate 66 57 L Pulse Rate [Apical] Respiratory Rate 15 25 H Blood Pressure 135/86 Blood Pressure [Left Arm] O2 Sat by Pulse Oximetry 100 100 Oxygen Delivery Method Oxygen Flow Rate FIO2% 03/10/24 18:00 03/10/24 18:15 03/10/24 18:30 Temperature Pulse Rate 59 L 59 L 59 L Pulse Rate [Apical] Respiratory Rate 10 L 10 L 9 L Blood Pressure Blood Pressure [Left Arm] O2 Sat by Pulse Oximetry 100 100 100 Oxygen Delivery Method Oxygen Flow Rate FIO2% 03/10/24 18:30 03/10/24 18:45 03/10/24 19:00 Temperature Pulse Rate 61 Pulse Rate [Apical] Respiratory Rate 9 L Blood Pressure 154/87 147/89 Blood Pressure [Left Arm] O2 Sat by Pulse Oximetry 100 Oxygen Delivery Method Oxygen Flow Rate FIO2% 03/10/24 19:00 03/10/24 19:15 03/10/24 19:30 Temperature Pulse Rate 62 60 61 Pulse Rate [Apical] Respiratory Rate 10 L 9 L 13 Blood Pressure Blood Pressure [Left Arm] O2 Sat by Pulse Oximetry Oxygen Delivery Method Oxygen Flow Rate FIO2% 03/10/24 19:30 03/10/24 19:30 03/10/24 19:30 Temperature Pulse Rate 61 Pulse Rate [Apical] Respiratory Rate 13 Blood Pressure 139/87 139/87 Blood Pressure [Left Arm] O2 Sat by Pulse Oximetry Oxygen Delivery Method Oxygen Flow Rate FIO2% 03/10/24 19:45 03/10/24 20:00 03/10/24 20:00 Temperature Pulse Rate 80 66 Pulse Rate [Apical] Respiratory Rate 22 16 Blood Pressure 142/88 Blood Pressure [Left Arm] O2 Sat by Pulse Oximetry Oxygen Delivery Method Oxygen Flow Rate FIO2% 03/10/24 20:30 03/10/24 20:45 03/10/24 23:55 Temperature Pulse Rate 71 Pulse Rate [Apical] Respiratory Rate 10 L 16 Blood Pressure 129/82 Blood Pressure [Left Arm] O2 Sat by Pulse Oximetry 100 Oxygen Delivery Method Oxygen Flow Rate FIO2% 03/10/24 21:00 03/10/24 21:00 03/10/24 22:00 Temperature 98.4 F Pulse Rate Pulse Rate [Apical] 74 62 Respiratory Rate 12 12 Blood Pressure Blood Pressure [Left Arm] 140/83 132/83 O2 Sat by Pulse Oximetry 99 97 Oxygen Delivery Method Room Air Room Air Room Air Oxygen Flow Rate FIO2% 03/10/24 23:00 03/11/24 00:00 03/11/24 00:00 Temperature 98.2 F 98.2 F Pulse Rate Pulse Rate [Apical] 58 L 65 67 Respiratory Rate 13 15 15 Blood Pressure Blood Pressure [Left Arm] 144/79 137/83 137/83 O2 Sat by Pulse Oximetry 96 96 99 Oxygen Delivery Method Room Air Room Air Oxygen Flow Rate FIO2% 03/11/24 00:25 03/11/24 01:00 03/11/24 02:00 Temperature Pulse Rate Pulse Rate [Apical] 65 68 Respiratory Rate 18 10 L 13 Blood Pressure Blood Pressure [Left Arm] 132/80 126/77 O2 Sat by Pulse Oximetry 100 100 Oxygen Delivery Method Room Air Room Air Oxygen Flow Rate FIO2% 03/11/24 03:00 03/11/24 04:24 03/11/24 04:00 Temperature 98.0 F Pulse Rate Pulse Rate [Apical] 58 L 56 L Respiratory Rate 14 14 12 Blood Pressure Blood Pressure [Left Arm] 110/75 128/82 O2 Sat by Pulse Oximetry 100 100 Oxygen Delivery Method Room Air Room Air Oxygen Flow Rate FIO2% 03/11/24 04:00 03/11/24 05:00 03/11/24 06:00 Temperature 98.0 F Pulse Rate Pulse Rate [Apical] 56 L 53 L 51 L Respiratory Rate 12 16 14 Blood Pressure Blood Pressure [Left Arm] 128/82 142/86 142/86 O2 Sat by Pulse Oximetry 100 100 100 Oxygen Delivery Method Room Air Room Air Oxygen Flow Rate FIO2% 03/11/24 05:24 03/11/24 07:19 03/11/24 09:28 Temperature Pulse Rate 73 Pulse Rate [Apical] Respiratory Rate 14 20 13 Blood Pressure 149/86 Blood Pressure [Left Arm] O2 Sat by Pulse Oximetry 100 Oxygen Delivery Method Oxygen Flow Rate FIO2% 03/11/24 08:00 03/11/24 08:00 03/11/24 07:00 Temperature 98.1 F Pulse Rate 86 Pulse Rate [Apical] Respiratory Rate 15 Blood Pressure 141/83 Blood Pressure [Left Arm] O2 Sat by Pulse Oximetry 96 Oxygen Delivery Method Room Air Oxygen Flow Rate FIO2% 03/11/24 12:00 03/11/24 12:26 03/11/24 09:58 Temperature Pulse Rate 61 Pulse Rate [Apical] Respiratory Rate 12 15 Blood Pressure 139/85 Blood Pressure [Left Arm] O2 Sat by Pulse Oximetry 100 Oxygen Delivery Method Oxygen Flow Rate FIO2% 03/11/24 16:00 03/11/24 16:00 03/11/24 18:23 Temperature 97.9 F Pulse Rate 57 L Pulse Rate [Apical] Respiratory Rate 11 L 16 Blood Pressure 144/88 Blood Pressure [Left Arm] O2 Sat by Pulse Oximetry 97 Oxygen Delivery Method Oxygen Flow Rate FIO2% 03/12/24 01:06 03/11/24 19:23 03/11/24 19:00 Temperature Pulse Rate Pulse Rate [Apical] Respiratory Rate 14 15 Blood Pressure Blood Pressure [Left Arm] O2 Sat by Pulse Oximetry Oxygen Delivery Method Room Air Oxygen Flow Rate FIO2% 03/11/24 20:00 03/11/24 18:00 03/11/24 20:00 Temperature 98.1 F Pulse Rate 69 76 Pulse Rate [Apical] Respiratory Rate 12 9 L Blood Pressure 128/95 128/95 Blood Pressure [Left Arm] O2 Sat by Pulse Oximetry 99 98 Oxygen Delivery Method Oxygen Flow Rate FIO2% 03/11/24 20:00 03/11/24 22:00 03/12/24 00:00 Temperature 98.1 F Pulse Rate 84 75 70 Pulse Rate [Apical] Respiratory Rate 18 13 11 L Blood Pressure Blood Pressure [Left Arm] O2 Sat by Pulse Oximetry 99 100 100 Oxygen Delivery Method Oxygen Flow Rate FIO2% 03/12/24 00:01 03/12/24 01:36 03/12/24 04:00 Temperature Pulse Rate Pulse Rate [Apical] Respiratory Rate 12 Blood Pressure 141/94 132/92 Blood Pressure [Left Arm] O2 Sat by Pulse Oximetry Oxygen Delivery Method Oxygen Flow Rate FIO2% 03/12/24 04:00 03/12/24 05:09 03/12/24 08:00 Temperature 98.0 F Pulse Rate 69 Pulse Rate [Apical] Respiratory Rate 9 L 22 Blood Pressure 130/83 Blood Pressure [Left Arm] O2 Sat by Pulse Oximetry 99 Oxygen Delivery Method Oxygen Flow Rate FIO2% 03/12/24 08:00 03/12/24 09:24 03/12/24 14:41 Temperature 97.9 F Pulse Rate 92 H Pulse Rate [Apical] Respiratory Rate 12 16 16 Blood Pressure Blood Pressure [Left Arm] O2 Sat by Pulse Oximetry 93 L Oxygen Delivery Method Oxygen Flow Rate FIO2% 03/12/24 17:49 03/12/24 08:00 03/12/24 12:00 Temperature Pulse Rate Pulse Rate [Apical] Respiratory Rate 14 Blood Pressure 118/86 Blood Pressure [Left Arm] O2 Sat by Pulse Oximetry Oxygen Delivery Method Room Air Oxygen Flow Rate 2 FIO2% 28 03/12/24 12:00 03/12/24 08:15 03/12/24 16:00 Temperature 97.6 F Pulse Rate 82 Pulse Rate [Apical] Respiratory Rate 11 L Blood Pressure 112/80 Blood Pressure [Left Arm] O2 Sat by Pulse Oximetry 99 Oxygen Delivery Method Nasal Cannula Oxygen Flow Rate 2 FIO2% 03/12/24 16:00 03/12/24 15:11 03/12/24 10:24 Temperature 97.9 F Pulse Rate 91 H Pulse Rate [Apical] Respiratory Rate 11 L 15 16 Blood Pressure Blood Pressure [Left Arm] O2 Sat by Pulse Oximetry 97 Oxygen Delivery Method Oxygen Flow Rate FIO2% 03/12/24 05:39 03/12/24 18:49 03/12/24 19:00 Temperature Pulse Rate Pulse Rate [Apical] Respiratory Rate 22 15 Blood Pressure Blood Pressure [Left Arm] O2 Sat by Pulse Oximetry Oxygen Delivery Method Room Air Oxygen Flow Rate FIO2% 03/12/24 20:00 03/12/24 20:00 03/12/24 22:17 Temperature 97.9 F Pulse Rate 96 H Pulse Rate [Apical] Respiratory Rate 14 Blood Pressure 106/74 Blood Pressure [Left Arm] O2 Sat by Pulse Oximetry 96 Oxygen Delivery Method Room Air Oxygen Flow Rate 2 FIO2% 28 03/13/24 00:00 03/13/24 00:00 03/13/24 02:11 Temperature 98.6 F Pulse Rate 91 H Pulse Rate [Apical] Respiratory Rate 17 17 Blood Pressure 94/69 Blood Pressure [Left Arm] O2 Sat by Pulse Oximetry 95 Oxygen Delivery Method Oxygen Flow Rate FIO2% 03/13/24 03:11 03/13/24 04:01 03/13/24 04:01 Temperature Pulse Rate 87 Pulse Rate [Apical] Respiratory Rate 12 11 L Blood Pressure 106/67 Blood Pressure [Left Arm] O2 Sat by Pulse Oximetry 96 Oxygen Delivery Method Oxygen Flow Rate FIO2% 03/13/24 07:41 03/13/24 07:00 03/13/24 08:00 Temperature 98.7 F Pulse Rate 110 H Pulse Rate [Apical] Respiratory Rate 20 21 Blood Pressure Blood Pressure [Left Arm] O2 Sat by Pulse Oximetry 94 L Oxygen Delivery Method Room Air Oxygen Flow Rate FIO2% 03/13/24 08:11 Temperature Pulse Rate Pulse Rate [Apical] Respiratory Rate 20 Blood Pressure Blood Pressure [Left Arm] O2 Sat by Pulse Oximetry Oxygen Delivery Method Oxygen Flow Rate FIO2% Labs: Laboratory Last Values WBC 9.9 X10^3/uL (3.6-10.0) 03/13/24 04:30 RBC 3.58 X10^6/uL (4.7-6.0) L 03/13/24 04:30 Hgb 10.8 g/dL (13.5-18.0) L 03/13/24 04:30 Hct 32.6 % (42.0-54.0) L 03/13/24 04:30 MCV 91.1 fL (80.0-100.0) 03/13/24 04:30 MCH 30.1 pg (27.0-34.0) 03/13/24 04:30 MCHC 33.0 g/dL (33.0-35.0) 03/13/24 04:30 RDW 15.9 % (11.6-16.5) 03/13/24 04:30 Plt Count 86 X10^3/uL (150.0-450.0) L 03/13/24 04:30 MPV 10.8 fL (7.4-11.0) 03/13/24 04:30 Neut % (Auto) 74.9 % (42.0-75.0) 03/13/24 04:30 Lymph % (Auto) 17.2 % (21.0-51.0) L 03/13/24 04:30 [place] % (Auto) 7.3 % (0.0-13.0) 03/13/24 04:30 Eos % (Auto) 0.3 % (0.9-2.9) L 03/13/24 04:30 Baso % (Auto) 0.3 % (0.2-1.0) 03/13/24 04:30 Neut # (Auto) 7.4 x10^3/uL (2.2-4.8) H 03/13/24 04:30 Lymph # (Auto) 1.7 X10^3/uL (1.3-2.9) 03/13/24 04:30 [place] # (Auto) 0.7 x10^3/uL (0.3-0.8) 03/13/24 04:30 Eos # (Auto) 0.0 x10^3/uL (0.0-0.2) 03/13/24 04:30 Baso # (Auto) 0.0 X10^3/uL (0.0-0.1) 03/13/24 04:30 Absolute Nucleated RBC 0.2 /100WBC 03/13/24 04:30 Sodium 143 mmol/L (136-145) 03/13/24 04:30 Corrected Sodium TNP 03/13/24 04:30 Potassium 4.4 mmol/L (3.5-5.1) 03/13/24 04:30 Chloride 112 mmol/L (98-107) H 03/13/24 04:30 Carbon Dioxide 26.2 mmol/L (21-32) 03/13/24 04:30 BUN 4 mg/dL (7-18) L 03/13/24 04:30 Creatinine 0.76 mg/dL (0.70-1.30) 03/13/24 04:30 Est GFR (MDRD) Af Amer > 60 (>60) 03/13/24 04:30 Est GFR (MDRD) Non-Af > 60 (>60) 03/13/24 04:30 Glucose 101 mg/dL (65-99) H 03/13/24 04:30 Lactic Acid 1.8 mmol/L (0.4-2.0) 03/12/24 04:50 Calcium 7.0 mg/dL (8.5-10.1) L 03/13/24 04:30 Corrected Calcium 9.2 mg/dL (8.5-10.1) 03/13/24 04:30 Magnesium 1.7 mg/dL (2.0-2.9) L 03/13/24 04:30 Total Bilirubin 0.50 mg/dL (0.2-1.0) 03/13/24 04:30 AST 55 Units/L (15-37) H 03/13/24 04:30 ALT 26 Units/L (12-78) 03/13/24 04:30 Alkaline Phosphatase 106 Units/L (46-116) 03/13/24 04:30 Creatine Kinase 191 Units/L (39-308) 03/10/24 16:35 Total Protein 3.8 g/dL (6.4-8.2) L 03/13/24 04:30 Albumin 1.2 g/dL (3.4-5.0) L 03/13/24 04:30 Globulin 2.6 g/dL (2.5-4.5) 03/13/24 04:30 Albumin/Globulin Ratio 0.5 Ratio (1.1-2.1) L 03/13/24 04:30 Lipase < 6 Units/L (16-77) L 03/10/24 16:35 Specimen Type Clean catch urine 03/11/24 04:27 Urine Color Dark yellow (YELLOW) 03/11/24 04:27 Urine Appearance Clear (CLEAR) 03/11/24 04:27 Urine pH 6.0 (5.0 - 8.0) 03/11/24 04:27 Ur Specific [place] 1.020 (1.000-1.030) 03/11/24 04:27 Urine Protein Negative (NEGATIVE) 03/11/24 04:27 Urine Glucose (UA) Negative (NEGATIVE) 03/11/24 04:27 Urine Ketones Negative (NEGATIVE) 03/11/24 04:27 Urine Blood Negative (NEGATIVE) 03/11/24 04:27 Urine Nitrite Negative (NEGATIVE) 03/11/24 04:27 Urine Bilirubin Negative (NEGATIVE) 03/11/24 04:27 Urine Urobilinogen Normal (NORMAL) 03/11/24 04:27 Ur Leukocyte Esterase Negative (NEGATIVE) 03/11/24 04:27 Reason For Visit: GENERAL WEAKNESS, MALNUTRITION, HYPOMAGNESIUM Discharge Date Discharge Date: 03/13/24 Discharge Diagnosis All Active Problems (Updated 03/14/24 @ 14:57 by Jacinto Velasco) Hip pain, right (Acute) Injury (Acute) Lumbar degenerative disc disease (Acute) Cholelithiasis (Acute) Gastritis (Acute) Generalized weakness (Acute) Hypomagnesemia (Acute) Malnutrition (Acute) Elevated lactic acid level (Acute) Postoperative visit (Acute) Hypokalemia (Acute) Generalized weakness (Acute) Adenocarcinoma of lung (Acute) Cellulitis of jaw, right (Acute) Facial cellulitis (Acute) Anemia (Chronic) Proctocolitis (Acute) Chronic pancreatitis (Acute) Protein calorie malnutrition (Acute) Hypoalbuminemia (Acute) Dehydration (Acute) Elevated CEA (Acute) Shortness of breath (Acute) Lung nodule seen on imaging study (Acute) BPH (benign prostatic hyperplasia) (Chronic) Hyperlipidemia (Chronic) Failure to thrive (Acute) Hypomagnesemia (Acute) Abdominal pain (Acute) Gastritis (Acute) Chronic reflux esophagitis (Acute) Stricture of esophagus (Acute) Weight loss (Acute) Gastroesophageal reflux disease (Chronic) Lower back pain (Acute) Hip pain (Acute) Plan of Treatment: Continue with present treatment and follow up plan. Pt is to keep follow up appointment as instructed and take medications as ordered. Discharge Medications Discharge Medications: Penicillins Allergy (Verified 03/10/24 15:52) CONTINUE taking the following medications famotidine 20 mg tablet 20 mg PO BID 03/10/24 [History] pantoprazole 40 mg tablet,delayed release (Protonix) 40 mg PO DAILY 03/10/24 [History] New Prescriptions cefdinir 300 mg capsule 300 mg PO BID 5 days #10 caps 03/13/24 [Rx] Discharge Disposition Assessment: No distress noted at discharge. Discharge Plan Discharge Plan Hospital Course: Mr Colon is a 68y/o male with a PMH of Lung cancer, HLD, GERD, BPH and chroni c pancreatitis admitted for generalized weakness, right hip and back pain. His hospital/treatment course included: IVF, PT has been working with him. He was empirically receiving Rocephin. Culture no growth to date. Electrolytes repleted. Pt responded well to treatments and symptoms significantly improved. He was discharged in stable condition, instructed to follow up with pcp in 1 week. Patient Disposition: HOME HEALTH SERVICE Condition: Stable Health Concerns: Post Hospitalization: new medications and changes needed to prevent readmission or further decline. Pt educated and given instructions on all concerns. Care Plan Goals: Problem: Pain/Alteration in Comfort Goal: Improve/ Resolve Pain; Achieve Pain Tolerance Instructions: Take pain medications as prescribed. Contact your primary care provider if your pain is unrelieved or worsens. Follow up with primary care provider as directed. Plan of Treatment: Continue with present treatment and follow up plan. Pt is to keep follow up appointment as instructed and take medications as ordered. Assessment: No distress noted at discharge. Prescriptions: New cefdinir 300 mg Capsule 300 mg PO BID 5 Days Qty: 10 0RF Continued folic acid 1 mg tablet 1 mg PO QDAY atorvastatin 40 mg tablet 40 mg PO QDAY tamsulosin 0.4 mg capsule 0.4 mg PO QHS oxycodone-acetaminophen 10-325 mg tablet 1 tab PO QID PRN potassium chloride 20 mEq Tablet Extended Release 20 meq PO QDAY Qty: 30 3RF Rx Instructions: TAKE ONE TABLET DAILY famotidine 20 mg tablet 20 mg PO BID pantoprazole [Protonix] 40 mg tablet,delayed release (DR/EC) 40 mg PO DAILY Rx Instructions: Take 1 Tablet by mouth daily Follow ups/Referrals Follow ups/Referrals: [facility] [Other] - 03/13/24 12:00 am (Referral sent at discharge.) AIMEE ARVIZU [Primary Care Provider] - 03/17/24 10:40 am Instructions Instructions: Hip Pain, Hypomagnesemia, Weakness, [place], Protein-Energy Malnutrition Stand Alone Forms: [facility], Post [facility] Follow Up Care
== END 2024-03-13 11:45 | disposition home health service (06) ==
LOC: ER 15:30 → ICU 15:30
PROVIDERS: ADMIT Obstetrics & Gynecology Obstetrics; ATTEND Internal Medicine
DX: R26.89 Other abnormalities of gait and mobility; R74.02 Elevation of levels of lactic acid dehydrogenase [LDH]; M25.552 Pain in left hip; Z72.0 Tobacco use; E83.42 Hypomagnesemia; D50.8 Other iron deficiency anemias; N40.0 Benign prostatic hyperplasia without lower urinary tract symptoms; Z97.8 Presence of other specified devices; C34.92 Malignant neoplasm of unspecified part of left bronchus or lung; E46 Unspecified protein-calorie malnutrition; K21.9 Gastro-esophageal reflux disease without esophagitis; E88.09 Other disorders of plasma-protein metabolism, not elsewhere classified; Z65.8 Other specified problems related to psychosocial circumstances; Z68.1 Body mass index [BMI] 19.9 or less, adult; R53.1 Weakness; M51.36 Other intervertebral disc degeneration, lumbar region; E78.5 Hyperlipidemia, unspecified; I10 Essential (primary) hypertension